=== PATIENT | female | born 1935 | race Caucasian/White ===

== ENCOUNTER 2016-08-20 05:29 | Inpatient (IN) | payer MEDICARE ==
[2016-08-20] MEDS ORDERED: IPRATROPIUM/ALBUTEROL 0.5-2.5 MG/3 ML AMPUL NEB ONE ×3 (05:49→06:40)
[2016-08-20] MEDS ORDERED: METHYLPREDNISOLONE INJ 125 MG/2 ML SDV IV ONE (05:49)
[2016-08-20 06:21] LABS: ABSOLUTE BASOPHILS # (AUTO) 0.1 10^3/uL (0.0-0.2); ABSOLUTE EOSINOPHILS # (AUTO) 0.3 10^3/uL (0.0-0.6); ABSOLUTE LYMPHOCYTES (AUTO) 0.9 10^3/uL (0.5-4.7); ABSOLUTE MONOCYTES (AUTO) 0.8 10^3/uL (0.1-1.4); ABSOLUTE NEUT (AUTO) 9.1 10^3/uL (1.7-8.2); BASOPHILS % (AUTO) 0.6 % (0-2); EOSINOPHILS % (AUTO) 2.3 % (0-6); HEMATOCRIT 38.7 % (36.0-47.0); HEMOGLOBIN 12.8 g/dL (12.0-15.5); HGB HCT DIFFERENCE -0.3; LYMPHOCYTES % (AUTO) 7.7 % (13-45); MEAN CORPUSCULAR HEMOGLOBIN 28.9 pg (27.0-33.4); MEAN CORPUSCULAR HGB CONC 33.2 g/dL (32.0-36.0); MEAN CORPUSCULAR VOLUME 87 fl (80-97); MONOCYTES % (AUTO) 7.2 % (3-13); RED BLOOD COUNT 4.44 10^6/uL (3.72-5.28); RED CELL DISTRIBUTION WIDTH 14.2 % (11.5-14.0); SEGMENTED NEUTROPHILS % (AUTO) 82.2 % (42-78); WHITE BLOOD COUNT 11.1 10^3/uL (4.0-10.5)
[2016-08-20 06:39] LABS: ALANINE AMINOTRANSFERASE 31 U/L (9-52); ALBUMIN 3.5 g/dL (3.5-5.0); ALKALINE PHOSPHATASE 112 U/L (38-126); ANION GAP 9 (5-19); ASPARTATE AMINO TRANSFERASE 30 U/L (14-36); BILIRUBIN,TOTAL 0.5 mg/dL (0.2-1.3); BLOOD UREA NITROGEN 12 mg/dL (7-20); CALCIUM 9.1 mg/dL (8.4-10.2); CARBON DIOXIDE 29 mmol/L (22-30); CHLORIDE 100 mmol/L (98-107); CREATINE KINASE 97 U/L (30-135); CREATININE RESULT 0.79 mg/dL (0.52-1.25); GLUCOSE 126 mg/dL (75-110); POTASSIUM 4.5 mmol/L (3.6-5.0); SODIUM 138.1 mmol/L (137-145); TOTAL PROTEIN 6.7 g/dL (6.3-8.2)
--- NOTE | 2016-08-20 06:40 | ER Document Report ---
ED General - General Chief Complaint: Breathing Difficulty Stated Complaint: DIFFICULTY BREATHING Mode of Arrival: Ambulatory Information source: Patient, Relative Notes: 81-year-old female history of CVA COPD presents with complaints of shortness of breath that started yesterday. Patient took her Ventolin every 4 hours yesterday and this morning was extremely difficult to breathe, and brought her in for evaluation TRAVEL OUTSIDE OF THE [place] IN LAST 30 DAYS: No - HPI Onset: Yesterday Onset/Duration: Persistent Quality of pain: No pain Severity: Mild Pain Level: Denies Associated symptoms: Nonproductive cough, Shortness of breath Exacerbated by: Movement, Walking Relieved by: Denies Similar symptoms previously: Yes Recently seen / treated by doctor: Yes - Related Data Allergies/Adverse Reactions: No Known Allergies Allergy (Verified 05/30/16 10:29) Past Medical History - Social History Smoking Status: Never Smoker Cigarette use (# per day): No Chew tobacco use (# tins/day): No Smoking Education Provided: No Family History: Reviewed & Not Pertinent - Past Medical History Cardiac Medical History: Reports: Hx Atrial Fibrillation, Hx Coronary Artery Disease, Hx Hypertension Neurological Medical History: Reports: Hx Cerebrovascular Accident - right hemiparesis Endocrine Medical History: Reports: Hx Diabetes Mellitus Type 1, Hx Diabetes Mellitus Type 2 GI Medical History: Reports: Hx Gastroesophageal Reflux Disease Psychiatric Medical History: Reports: Hx Depression Past Surgical History: Reports: Hx Breast Surgery - right mastectomy, Hx Kidney (Renal Surgery) - right kidney removed, Hx Mastectomy - Right nephrectomy, Hx Vascular Surgery - Right fem-pop bypass, Left vein harvesting - Immunizations Hx Diphtheria, Pertussis, Tetanus Vaccination: No Review of Systems - Review of Systems Notes: REVIEW OF SYSTEMS: CONSTITUTIONAL : Denies fever, chills, or sweats. Denies recent illness. EENT: Denies eye, ear, throat, or mouth pain or symptoms. Denies nasal or sinus congestion or discharge. Denies throat, tongue, or mouth swelling or difficulty swallowing. CARDIOVASCULAR: Denies chest pain. Denies palpitations or racing or irregular heart beat. Denies ankle edema. RESPIRATORY: Admits to shortness of breath nonproductive cough difficulty breathing GASTROINTESTINAL: Denies abdominal pain or distention. Denies nausea, vomiting , or diarrhea. Denies blood in vomitus, stools, or per rectum. Denies black, tarry stools. Denies constipation. GENITOURINARY: Denies difficulty urinating, painful urination, burning, frequency, blood in urine, or discharge. FEMALE GENITOURINARY: Denies vaginal bleeding, heavy or abnormal periods, irregular periods. Denies vaginal discharge or odor. MUSCULOSKELETAL: Denies back or neck pain or stiffness. Denies joint pain or swelling. SKIN: Denies rash, lesions or sores. HEMATOLOGIC : Denies easy bruising or bleeding. LYMPHATIC: Denies swollen, enlarged glands. NEUROLOGICAL: Denies confusion or altered mental status. Denies passing out or loss of consciousness. Denies dizziness or lightheadedness. Denies headache. Denies weakness or paralysis or loss of use of either side. Denies problems with gait or speech. Denies sensory loss, numbness, or tingling. Denies seizures. PSYCHIATRIC: Denies anxiety or stress. Denies depression, suicidal ideation, or homicidal ideation. ALL OTHER SYSTEMS REVIEWED AND NEGATIVE. Dictation was performed using [employer] voice recognition software PHYSICAL EXAMINATION: GENERAL: Well-appearing, well-nourished and in no acute distress. HEAD: Atraumatic, normocephalic. EYES: Pupils equal round and reactive to light, extraocular movements intact, conjunctiva are normal. ENT: Nares patent, oropharynx clear without exudates. Moist mucous membranes. NECK: Normal range of motion, supple without lymphadenopathy LUNGS: Decreased breath sounds on the left upper and lower lobes. It is noted the patient was seen by physician integration assistant prior to my arrival and 2 DuoNeb nebs were given since the patient was noted to be in significant respiratory distress HEART: Regular rate and rhythm without murmurs ABDOMEN: Soft, nontender, nondistended abdomen. No guarding, no rebound. No masses appreciated. Female : deferred Musculoskeletal: Normal range of motion, no pitting or edema. No cyanosis. NEUROLOGICAL: Cranial nerves grossly intact. Normal speech, normal gait. Normal sensory, motor exams PSYCH: Normal mood, normal affect. SKIN: Warm, Dry, normal turgor, no rashes or lesions noted. Physical Exam - Vital signs Vitals: Temp Pulse Resp BP Pulse Ox 98 F 86 30 H 208/90 H 92 08/20/16 05:33 08/20/16 05:33 08/20/16 05:33 08/20/16 05:33 08/20/16 05:33 Course - Re-evaluation Re-evalutation: 08/20/16 06:42 At this time patient looks extremely well states she is breathing much better, she is on 2 L nasal cannula satting 96%, patient is not on O2 at home. 1 further duo neb has been ordered, lab work imaging are pending patient will be ambulating be evaluated prior to disposition 08/20/16 08:10 pt desat to 87% at rest on ra , movement the patient for further breathing treatments - Vital Signs Vital signs: Temp Pulse Resp BP Pulse Ox 98 F 86 21 H 160/62 H 90 L 08/20/16 05:33 08/20/16 05:33 08/20/16 08:02 08/20/16 08:02 08/20/16 08:00 - Laboratory Result Diagrams: 08/20/16 06:15 08/20/16 06:15 Laboratory results interpreted by me: 08/20/16 08/20/16 08/20/16 06:15 06:15 06:15 WBC 11.1 H RDW 14.2 H Seg Neutrophils % 82.2 H Lymphocytes % 7.7 L Absolute Neutrophils 9.1 H VBG HCO3 Glucose 126 H NT-Pro-B Natriuret Pep 5270 H 08/20/16 06:53 WBC RDW Seg Neutrophils % Lymphocytes % Absolute Neutrophils VBG HCO3 33.4 H Glucose NT-Pro-B Natriuret Pep - Diagnostic Test Radiology reviewed: Image reviewed, Reports reviewed - EKG Interpretation by Me EKG shows normal: Sinus rhythm, [place], Intervals, QRS Complexes Critical Care Note - Critical Care Note Total time excluding time spent on procedures (mins): 31 Comments: 31 minutes of critical care time spent in direct contact evaluating and reevaluating the patient, treating symptoms, reviewing labs and studies and speaking with family and consultants excluding any procedures Discharge - Discharge Clinical Impression: Hypoxemia COPD (chronic obstructive pulmonary disease) Qualifiers: COPD type: unspecified COPD Qualified Code(s): J44.9 - Chronic obstructive pulmonary disease, unspecified Hypertension Qualifiers: Hypertension type: essential hypertension Qualified Code(s): I10 - Essential ( primary) hypertension Condition: Stable Disposition: ADMITTED OBSERVATION Admitting Provider: Hospitalist Unit Admitted: Telemetry
[2016-08-20 06:49] LABS: CREATINE KINASE MB 3.75 ng/mL (<4.55); TROPONIN I 0.021 ng/mL
[2016-08-20 07:08] LABS: VENOUS BLOOD BASE EXCESS 5.9 mmol/L; VENOUS BLOOD HCO3 33.4 mmol/L (20-32); VENOUS BLOOD PCO2 61.4 mmHg (35-63); VENOUS BLOOD PH 7.35 (7.30-7.42)
--- NOTE | 2016-08-20 08:07 | EKG REPORT ---
SEVERITY:- ABNORMAL ECG - SINUS RHYTHM PROBABLE LEFT ATRIAL ABNORMALITY LAD, CONSIDER LEFT ANTERIOR FASCICULAR BLOCK BORDERLINE R WAVE PROGRESSION, ANTERIOR LEADS : Confirmed by: Jameson Engel MD 20-Aug-2016 08:06:42
[2016-08-20] MEDS ORDERED: ONDANSETRON HCL INJ/PF 4 MG/2 ML SDV IV PRN (10:14)
[2016-08-20] MEDS ORDERED: LEVALBUTEROL HCL NEB 1.25 MG/3 ML AMPUL NEB PRN (10:25)
[2016-08-20] MEDS ORDERED: DEXTROSE 40% GEL 15 GM TUBE PO PRN ×2 (10:28)
[2016-08-20] MEDS ORDERED: GLUCAGON,HUMAN RECOMB 1 MG INJ IM PRN (10:28)
[2016-08-20] MEDS ORDERED: DEXTROSE 50%-WATER 25 GM/50 ML DISP.SYRIN IV PRN ×2 (10:28)
--- NOTE | 2016-08-20 10:42 | PDOC H&P ---
History of Present Illness Admission Date/PCP: 08/20/16 08:26 ANU ASTUDILLO Patient complains of: Shortness of breath History of Present Illness: REI ROBLES is a 81 year old female, with history of paroxysmal atrial fibrillation, hypertension, diabetes mellitus, COPD but unknown to the patient and family presents to the hospital because of shortness of breath of 2 days duration. No reported chest pain, paroxysmal nocturnal dyspnea nor orthopnea. No reported weight gain as well. No chills or fever. Intermittently the patient would have some cough with clear phlegm. Patient intermittently will have some sinus congestion mainly on the left side with postnasal dripping. 2 days ago the patient started to develop some shortness of breath and wheezing. Patient started using her nebulizers more frequently without significant help. Today she woke up with a lot of wheezing again. She started to use nebulizers without any help therefore the patient was brought to the hospital where she was given intravenous steroids as well as bronchodilators with partial relief of symptoms. The patient was then referred for admission. O2 saturation reportedly drop with activity but the patient's baseline activity is bed bound and wheelchair bound. Past Medical History Cardiac Medical History: Reports: Atrial Fibrillation, Coronary Artery Disease, Hypertension Pulmonary Medical History: Reports: Chronic Obstructive Pulmonary Disease (COPD ) - On record Endocrine Medical History: Reports: Diabetes Mellitus Type 1, Diabetes Mellitus Type 2 GI Medical History: Reports: Gastroesophageal Reflux Disease Psychiatric Medical History: Reports: Depression Past Surgical History Past Surgical History: Reports: Mastectomy - Right nephrectomy, Vascular Surgery - Right fem-pop bypass, Left vein harvesting Social History Information Source: Relative Smoking Status: Former Smoker Frequency of Alcohol Use: None Hx Recreational Drug Use: No Drugs: None Hx Prescription Drug Abuse: No Family History Family History: CAD, DM Parental Family History Reviewed: Yes Children Family History Reviewed: Yes Sibling(s) Family History Reviewed.: Yes Medication/Allergy Home Medications: Acetaminophen [Tylenol Extra Strength] 500 mg PO BID 08/20/16 Albuterol Sulfate [Ventolin HFA MDI 18 GM] 2 puff IH Q4HP PRN 08/20/16 Aspirin [Aspirin EC] 81 mg PO DAILY 08/20/16 Clopidogrel Bisulfate [Plavix 75 mg Tablet] 75 mg PO DAILY 08/20/16 Cranberry [Cranberry 500 mg Capsule] 1,000 mg PO BID@0800,1600 08/20/16 Digoxin [Lanoxin 0.125 mg Tablet] 0.125 mg PO DAILY 08/20/16 Ezetimibe [Zetia 10 mg Tablet] 10 mg PO DAILY 08/20/16 Fluticasone Propionate [Flonase Nasal Evant 50 Mcg/Evant 16 gm] 2 spray IH DAILY 08/20/16 Gabapentin [Neurontin 300 mg Capsule] 1,200 mg PO Q8 08/20/16 Insulin Aspart [Novolog Insulin (Aspart) 100 unit/mL] 0 units SQ ASDIR PRN 08/20 Insulin Glargine,Hum.rec.anlog [Lantus] 65 unit SQ QAM 08/20/16 Ipratropium/Albuterol Sulfate [Duoneb 3 ml Ampul] 1 vial IH Q6 08/20/16 Isosorbide Mononitrate [Imdur 60 mg Tablet.er] 60 mg PO DAILY 08/20/16 Metoprolol Tartrate [Lopressor 50 mg Tablet] 50 mg PO Q12 08/20/16 Pantoprazole Sodium 40 mg PO DAILY 08/20/16 Paroxetine HCl [Paxil] 40 mg PO DAILY 08/20/16 Polyethylene Glycol 3350 [Miralax Powder 17 gm/Packet] 17 gm PO DAILY 08/20/16 Trazodone HCl [Desyrel 50 mg Tablet] 75 mg PO QHS 08/20/16 Vit A/Vit C/Vit E/Zinc/Copper [Preservision Areds Softgel] 2 cap PO BID Allergies/Adverse Reactions: No Known Allergies Allergy (Verified 05/30/16 10:29) Review of Systems Constitutional: ABSENT: anorexia, chills, fever(s), headache(s), night sweats, weight gain, weight loss Eyes: ABSENT: visual disturbances Ears: ABSENT: hearing changes Nose, Mouth, and Throat: ABSENT: mouth pain, sore throat Cardiovascular: PRESENT: dyspnea on exertion - Chronic, edema. ABSENT: chest pain, orthropnea, palpitations Respiratory: PRESENT: cough - Occasional, dyspnea, sputum - Occasional. ABSENT : hemoptysis Gastrointestinal: PRESENT: abdominal pain - Minimal, associated with constipation, constipation. ABSENT: diarrhea, hematemesis, hematochezia, melena , nausea, vomiting Genitourinary: ABSENT: difficulty urinating, dysuria, hematuria Musculoskeletal: ABSENT: joint swelling Integumentary: ABSENT: pruritus, rash, wounds Neurological: PRESENT: abnormal speech - Expressive aphasia, focal weakness - Chronic right hemiparesis. ABSENT: abnormal gait, confusion, dizziness, syncope Psychiatric: ABSENT: anxiety, depression, homidical ideation, suicidal ideation Endocrine: ABSENT: cold intolerance, heat intolerance, polydipsia, polyuria Hematologic/Lymphatic: ABSENT: easy bleeding, easy bruising Physical Exam Vital Signs: Temp Pulse Resp BP Pulse Ox 98.7 F 86 26 H 132/52 H 96 08/20/16 08:57 08/20/16 05:33 08/20/16 10:01 08/20/16 10:01 08/20/16 10:01 General appearance: PRESENT: mild distress, morbidly obese Head exam: PRESENT: atraumatic, normocephalic Eye exam: PRESENT: conjunctiva pink, EOMI, PERRLA - But sluggish. ABSENT: scleral icterus Ear exam: PRESENT: normal external ear exam. ABSENT: drainage Mouth exam: PRESENT: moist, neck supple, tongue midline Throat exam: ABSENT: post pharyngeal erythema, tonsillar erythema, tonsillar exudate Neck exam: ABSENT: carotid bruit, JVD, lymphadenopathy, thyromegaly Respiratory exam: PRESENT: rales - Lower lung rojas right greater than left. ABSENT: rhonchi, wheezes Cardiovascular exam: PRESENT: RRR, +S1, +S2. ABSENT: diastolic murmur, rubs, systolic murmur Pulses: PRESENT: normal dorsalis pedis pul Vascular exam: PRESENT: normal capillary refill GI/Abdominal exam: PRESENT: normal bowel sounds, soft. ABSENT: distended, guarding, mass, organolmegaly, rebound, tenderness Rectal exam: PRESENT: deferred Extremities exam: PRESENT: full ROM, +1 edema. ABSENT: calf tenderness, clubbing Neurological exam: PRESENT: alert, awake, oriented to situation Psychiatric exam: PRESENT: appropriate affect, normal mood. ABSENT: homicidal ideation, suicidal ideation Focused psych exam: ABSENT: restlessness Skin exam: PRESENT: dry, intact, warm. ABSENT: cyanosis, rash Results Impressions: Chest X-Ray 08/20/16 05:49 IMPRESSION: Linear scarring or subsegmental atelectasis in the right lung base. Remaining lung rojas are free of active infiltrates. Other findings as noted above Assessment & Plan - Diagnosis (1) Congestive heart failure Qualifiers: Congestive heart failure type: unspecified congestive heart failure type Congestive heart failure chronicity: acute Qualified Code(s): I50.9 - Heart failure, unspecified Is this a current diagnosis for this admission?: Yes (2) COPD (chronic obstructive pulmonary disease) Qualifiers: COPD type: unspecified COPD Qualified Code(s): J44.9 - Chronic obstructive pulmonary disease, unspecified Is this a current diagnosis for this admission?: Yes (3) HTN (hypertension) Qualifiers: Hypertension type: essential hypertension Qualified Code(s): I10 - Essential (primary) hypertension Is this a current diagnosis for this admission?: Yes (4) Atrial fibrillation Qualifiers: Atrial fibrillation type: paroxysmal Qualified Code(s): I48.0 - Paroxysmal atrial fibrillation Is this a current diagnosis for this admission?: Yes (5) Cerebral vascular disease Is this a current diagnosis for this admission?: Yes (6) Depression Qualifiers: Depression Type: unspecified Qualified Code(s): F32.9 - Major depressive disorder, single episode, unspecified Is this a current diagnosis for this admission?: Yes (7) Diabetes mellitus type 2, controlled, without complications Qualifiers: Diabetes mellitus penitentiary insulin use: with intermission coordinator use Qualified Code(s): E11.9 - Type 2 diabetes mellitus without complications Is this a current diagnosis for this admission?: Yes (8) GERD (gastroesophageal reflux disease) Qualifiers: Esophagitis presence: without esophagitis Qualified Code(s): K21.9 - Gastro-esophageal reflux disease without esophagitis Is this a current diagnosis for this admission?: Yes - Time Time Spent: 50 to 70 Minutes Anticipated discharge: Home with Homehealth Within: within 72 hours - Inpatient Certification Based on my medical assessment, after consideration of the patient's comorbidities, presenting symptoms, or acuity I expect that the services needed warrant INPATIENT care.: Yes I certify that my determination is in accordance with my understanding of Medicare's requirements for reasonable and necessary INPATIENT services [42 CFR 412.3e].: Yes Medical Necessity: Significant Comorbidiites Make Outpatient Treatment Too Risky , Need Close Monitoring Due to Risk of Patient Decompensation, Risk of Diagnosis Which Will Require Inpatient Eval/Care/Monitoring Post Hospital Care: D/C Field Observer Documentation - Plan Summary Plan Summary: The patient will be admitted to telemetry. We will obtain echocardiogram. We will continue the patient's antiplatelet therapy. We will obtain cardiac enzymes 3. Begin intravenous Lasix. Patient may very well have COPD as well due to prior history of smoking we will put the patient on oral steroids and [id number] bronchodilators. We will obtain TSH and free T4. DVT prophylaxis with Lovenox will be given. Supplemental oxygen will be placed. Further testing depends and the initial evaluation as outlined above. Family and patient reports no history of chronic home oxygen use.
[2016-08-20 12:00] LABS: THYROID STIMULATING HORMONE 5.86 uIU/mL (0.47-4.68)
[2016-08-20] MEDS ORDERED: CLOPIDOGREL BISULFATE 75 MG TABLET PO ONE (12:00)
[2016-08-20] MEDS ORDERED: METOPROLOL TARTRATE 50 MG TABLET PO ONE (12:00)
[2016-08-20] MEDS ORDERED: POLYETHYLENE GLYCOL 3350 POWDER 17 GM/1 PACKET PO ONE (12:00)
[2016-08-20] MEDS ORDERED: FUROSEMIDE INJ/PF 40 MG/4 ML SDV IV ONE (12:00)
[2016-08-20] MEDS ORDERED: PREDNISONE 20 MG TABLET PO ONE (12:00)
[2016-08-20] MEDS ORDERED: DIGOXIN 0.125 MG TABLET PO ONE (12:00)
[2016-08-20] MEDS ORDERED: DOCUSATE SODIUM 100 MG CAPSULE PO ONE (12:00)
[2016-08-20] MEDS ORDERED: ISOSORBIDE MONONITRATE 60 MG TAB.ER.24H PO ONE (12:00)
[2016-08-20] MEDS ORDERED: ASPIRIN 81 MG TABLET, ENT COATED PO ONE (12:00)
[2016-08-20] MEDS ORDERED: EZETIMIBE 10 MG TABLET PO ONE (12:00)
[2016-08-20] MEDS ORDERED: INSULIN GLARGINE,HUM.REC.ANLOG 300 UNIT/3 ML INSULN.PEN SUBCUT ONE (12:00)
--- NOTE | 2016-08-20 12:43 | XCELERA REPORT ---
[address] [address] Transthoracic Echocardiogram Report Name: REI ROBLES Age: 81 yrs Gender: Female : 1935 Patient Status: Inpatient Patient Location: \S\19\S\A Study Date: 08/20/2016 10:51 AM Height: 65 in Weight: 178 lb BSA: 1.9 m2 Procedure: A two-dimensional transthoracic echocardiogram with color flow and Doppler was performed. The study was technically difficult with many images being suboptimal in quality. Reason For Study: DYSPNEA / SOB / CHF History: DYSPNEA / SOB / CHF. Ordering Physician: NATHALIA LAKE Performed By: Hoda Young Interpretation Summary The left ventricle is normal in size. There is mild concentric left ventricular hypertrophy. LV EF is > than 55% Doppler measurements suggest normal left ventricular diastolic function The left ventricular wall motion is normal. The right atrium is normal. The left atrium is borderline dilated. There is no evidence of mitral valve prolapse. There is no mitral valve stenosis. There is a trace to mild amount of mitral regurgitation There is no aortic valvular vegetation. There is mild aortic stenosis There is a peak gradient of 25 mm of Hg. There is no tricuspid stenosis. There is a trace amount of tricuspid regurgitation Unable to calculate RVSP due to insufficient TR jet. MMode/2D Measurements \T\ Calculations RVDd: 2.8 cm LVIDd: 4.2 cm FS: 30.1 % Ao root diam: 3.3 cm IVSd: 1.2 cm LVIDs: 3.0 cm EDV(Teich): 79.7 ml LVPWd: 1.2 cm ESV(Teich): 33.6 ml Ao root area: 8.3 cm2 EF(Teich): 57.8 % LA dimension: 4.1 cm LVOT diam: 2.0 cm LVOT area: 3.2 cm2 Doppler Measurements \T\ Calculations MV E max levy: MV V2 max: MV P1/2t max levy: Ao V2 max: 154.1 cm/sec 166.8 cm/sec 152.4 cm/sec 249.0 cm/sec MV A max levy: MV max PG: MV P1/2t: 64.6 msec Ao max P.1 cm/sec 11.1 mmHg MVA(P1/2t): 3.4 cm2 24.8 mmHg MV E/A: 1.1 MV V2 mean: MV dec slope: Ao V2 mean: 109.2 cm/sec 690.8 cm/sec2 165.0 cm/sec MV mean PG: MV dec time: 0.22 secAo mean P.5 mmHg 13.0 mmHg MV V2 VTI: Ao V2 VTI: 53.1 cm 52.7 cm MVA(VTI): 1.4 cm2 KENTRELL(I,D): 1.5 cm2 KENTRELL(V,D): 1.5 cm2 LV V1 max PG: SV(LVOT): 76.9 mlPA V2 max: 5.3 mmHg 99.7 cm/sec LV V1 mean PG: PA max P.0 mmHg 2.9 mmHg LV V1 max: 115.5 cm/sec LV V1 mean: 77.9 cm/sec LV V1 VTI: 24.1 cm Left Ventricle The left ventricle is normal in size. There is mild concentric left ventricular hypertrophy. Left ventricular systolic function is normal. LV EF is > than 55%. Doppler measurements suggest normal left ventricular diastolic function. The left ventricular wall motion is normal. There is no thrombus. There is no ventricular septal defect visualized. Right Ventricle The right ventricle is normal in size and function. Atria The right atrium is normal. The left atrium is borderline dilated. The interatrial septum is intact with no evidence for an atrial septal defect. Mitral Valve There is no evidence of mitral valve prolapse. There is no vegetation seen on the mitral valve. There is no mitral valve stenosis. There is a trace to mild amount of mitral regurgitation. Aortic Valve There is no aortic valvular vegetation. There is mild aortic stenosis. There is a peak gradient of 25 mm of Hg. There is no LVOT obstruction. No aortic regurgitation is present. Tricuspid Valve There is no tricuspid stenosis. There is a trace amount of tricuspid regurgitation. Unable to calculate RVSP due to insufficient TR jet. Pulmonic Valve There is no pulmonic valvular stenosis. There is no pulmonic valvular regurgitation. Great Vessels The aortic root is normal size. Effusions There is no pericardial effusion. : NATHALIA LAKE > Rocio Duckworth
[2016-08-20] MEDS: LEVALBUTEROL HCL NEB 1.25 MG/3 ML AMPUL NEB SCH ×3 (12:45→20:39)
[2016-08-20] MEDS: IPRATROPIUM BROMIDE 0.02% NEB 0.5 MG/2.5 ML AMPUL NEB SCH ×2 (13:06→20:39)
[2016-08-20] MEDS: GABAPENTIN 400 MG CAPSULE PO SCH ×2 (14:56→22:23)
[2016-08-20] MEDS: ACETAMINOPHEN 325 MG TABLET PO PRN (17:52)
[2016-08-20] MEDS: TRAZODONE HCL 50 MG TABLET PO SCH (22:24)
[2016-08-20] MEDS: FUROSEMIDE INJ/PF 40 MG/4 ML SDV IV SCH (22:24)
[2016-08-20] MEDS: METOPROLOL TARTRATE 50 MG TABLET PO SCH (22:24)
[2016-08-20 22:44] LABS: ADD ON TESTING BLD IN LAB ACKNOWLEDGE
[2016-08-20 23:04] LABS: DIGOXIN 1.54 ng/mL (0.8-2.0)
[2016-08-20] MEDS: INSULIN REG, HUMAN 100 UNIT/ML 3 ML VIAL (PYX) SUBCUT PRN (23:14)
[2016-08-21] MEDS: IPRATROPIUM BROMIDE 0.02% NEB 0.5 MG/2.5 ML AMPUL NEB SCH ×7 (00:28→23:55)
[2016-08-21] MEDS: LEVALBUTEROL HCL NEB 1.25 MG/3 ML AMPUL NEB SCH ×7 (00:28→23:55)
[2016-08-21 03:25] LABS: ANION GAP 9 (5-19); BLOOD UREA NITROGEN 31 mg/dL (7-20); CALCIUM 8.8 mg/dL (8.4-10.2); CARBON DIOXIDE 29 mmol/L (22-30); CHLORIDE 94 mmol/L (98-107); CREATINE KINASE 102 U/L (30-135); CREATININE RESULT 1.05 mg/dL (0.52-1.25); GLUCOSE 287 mg/dL (75-110); POTASSIUM 4.9 mmol/L (3.6-5.0); SODIUM 131.5 mmol/L (137-145)
[2016-08-21] MEDS: GABAPENTIN 400 MG CAPSULE PO SCH ×3 (06:25→21:44)
[2016-08-21] MEDS: LANSOPRAZOLE 30 MG TAB.RAP.DR PO SCH (06:25)
--- NOTE | 2016-08-21 06:35 | EKG REPORT ---
SEVERITY:- BORDERLINE ECG - SINUS RHYTHM BORDERLINE LEFT AXIS DEVIATION BORDERLINE T ABNORMALITIES, DIFFUSE LEADS : Confirmed by: Jameson Engel MD 21-Aug-2016 06:35:07
[2016-08-21] MEDS: ENOXAPARIN SODIUM INJ 40 MG/0.4 ML DISP.SYRIN SUBCUT SCH (07:50)
[2016-08-21] MEDS: INSULIN REG, HUMAN 100 UNIT/ML 3 ML VIAL (PYX) SUBCUT PRN ×4 (07:53→21:44)
[2016-08-21] MEDS: INSULIN GLARGINE,HUM.REC.ANLOG 300 UNIT/3 ML INSULN.PEN SUBCUT SCH (07:53)
[2016-08-21] MEDS: METOPROLOL TARTRATE 50 MG TABLET PO SCH ×2 (09:39→21:44)
[2016-08-21] MEDS: DOCUSATE SODIUM 100 MG CAPSULE PO SCH (09:39)
[2016-08-21] MEDS: PAROXETINE HCL 20 MG TABLET PO SCH (09:39)
[2016-08-21] MEDS: ISOSORBIDE MONONITRATE 60 MG TAB.ER.24H PO SCH (09:39)
[2016-08-21] MEDS: CLOPIDOGREL BISULFATE 75 MG TABLET PO SCH (09:39)
[2016-08-21] MEDS: EZETIMIBE 10 MG TABLET PO SCH (09:40)
[2016-08-21] MEDS: ASPIRIN 81 MG TABLET, ENT COATED PO SCH (09:40)
[2016-08-21] MEDS: FUROSEMIDE INJ/PF 40 MG/4 ML SDV IV SCH (09:40)
[2016-08-21] MEDS: POLYETHYLENE GLYCOL 3350 POWDER 17 GM/1 PACKET PO SCH (09:40)
[2016-08-21] MEDS: PREDNISONE 20 MG TABLET PO SCH (09:40)
[2016-08-21] MEDS: DIGOXIN 0.125 MG TABLET PO SCH (09:46)
--- NOTE | 2016-08-21 11:02 | PDOC PROGRESS REPORT ---
Subjective Progress Note for:: 08/21/16 Subjective:: Patient is breathing better although she still complains of some rhonchi and coughing. No nausea or vomiting. No reported chest pain. No temperature spikes of respiratory distress reported. No diarrhea as well. Physical Exam Vital Signs: Temp Pulse Resp BP Pulse Ox 97.6 F 62 17 148/57 H 100 08/21/16 08:05 08/21/16 08:14 08/21/16 08:14 08/21/16 08:05 08/21/16 08:14 Pulse Oximeter Continuous Start: 08/20/16 10: 15 Freq: RTQ4 Status: Active Document 08/21/16 08:14 [facility] (Rec: 08/21/16 08:16 [facility] [email or web address]) Pulse Oximetry Assessment Oxygen Saturation (92-100) 100 Oxygen Flow Rate (L/min) 2 Oxygen Delivery Method Nasal Cannula Equipment Usage Equipment in Use Continuous SpO2 Machine # [id number] Intake & Output 08/20/16 08/21/16 08/22/16 06:59 06:59 06:59 Intake Total 806 Balance 806 Weight 81.6 kg General appearance: PRESENT: no acute distress, obese Head exam: PRESENT: normocephalic Eye exam: PRESENT: EOMI Mouth exam: PRESENT: moist, neck supple Neck exam: ABSENT: JVD Respiratory exam: PRESENT: clear to auscultation ashanti - Anteriorly, rhonchi - few on the lower lung rojas posteriorly Cardiovascular exam: PRESENT: RRR. ABSENT: gallop GI/Abdominal exam: PRESENT: normal bowel sounds, soft. ABSENT: distended, tenderness Extremities exam: PRESENT: +1 edema - Improved Neurological exam: PRESENT: alert, awake Skin exam: PRESENT: dry, warm. ABSENT: cyanosis Results Laboratory Results: 08/21/16 02:57 08/21/16 02:57 Sodium 131.5 L Potassium 4.9 Chloride 94 L Carbon Dioxide 29 Anion Gap 9 BUN 31 H Creatinine 1.05 Est GFR ( Amer) > 60 Est GFR (Non-Af Amer) 50 L Glucose 287 H Calcium 8.8 08/20/16 08/20/16 08/20/16 12:28 12:28 20:00 Creatine Kinase 75 76 Troponin I 0.019 08/20/16 08/21/16 08/21/16 20:00 02:57 02:57 Creatine Kinase 102 Troponin I 0.017 0.451 08/21/16 06:06 Creatine Kinase Troponin I 0.977 Impressions: Chest X-Ray 08/20/16 05:49 IMPRESSION: Linear scarring or subsegmental atelectasis in the right lung base. Remaining lung rojas are free of active infiltrates. Other findings as noted above Assessment & Plan - Diagnosis (1) Congestive heart failure Qualifiers: Congestive heart failure type: unspecified congestive heart failure type Congestive heart failure chronicity: acute Qualified Code(s): I50.9 - Heart failure, unspecified Is this a current diagnosis for this admission?: Yes (2) COPD (chronic obstructive pulmonary disease) Qualifiers: COPD type: unspecified COPD Qualified Code(s): J44.9 - Chronic obstructive pulmonary disease, unspecified Is this a current diagnosis for this admission?: Yes (3) HTN (hypertension) Qualifiers: Hypertension type: essential hypertension Qualified Code(s): I10 - Essential (primary) hypertension Is this a current diagnosis for this admission?: Yes (4) Atrial fibrillation Qualifiers: Atrial fibrillation type: paroxysmal Qualified Code(s): I48.0 - Paroxysmal atrial fibrillation Is this a current diagnosis for this admission?: Yes (5) Cerebral vascular disease Is this a current diagnosis for this admission?: Yes (6) Depression Qualifiers: Depression Type: unspecified Qualified Code(s): F32.9 - Major depressive disorder, single episode, unspecified Is this a current diagnosis for this admission?: Yes (7) Diabetes mellitus type 2, controlled, without complications Qualifiers: 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 We will consult cardiology for the elevated troponin. In the meantime continue antiplatelet therapy for now. Patient isn't on beta jaxon. We will decrease the Lasix. Continue steroids and bronchodilators.
[2016-08-21] MEDS ORDERED: LEVOFLOXACIN 750 MG TABLET PO ONE (12:00)
[2016-08-21] MEDS: ACETAMINOPHEN 325 MG TABLET PO PRN (16:23)
[2016-08-21] MEDS: TRAZODONE HCL 50 MG TABLET PO SCH (21:44)
[2016-08-22] MEDS: IPRATROPIUM BROMIDE 0.02% NEB 0.5 MG/2.5 ML AMPUL NEB SCH ×5 (03:57→20:01)
[2016-08-22] MEDS: LEVALBUTEROL HCL NEB 1.25 MG/3 ML AMPUL NEB SCH ×5 (03:57→19:57)
--- NOTE | 2016-08-22 04:58 | CONSULTATION REPORT E ---
Consultation Report NAME: REI ROBLES : 1935 AGE: 81Y DATE: 08/21/2016 407 A TO: ABELARDO RAMIREZ M.D. FROM: BRIAN NGUYEN Requesting Physician REASON FOR CONSULTATION: Elevated troponin and shortness of breath. HISTORY: Note that the patient has history of prior stroke and expressive aphasia and hence, it is very difficult to make out what the patient is saying and also, the patient seems to be having some underlying dementia and she is confused. Hence, history and past history obtained from past medical history and History and Physical. There is no family here. Note, the patient is a FULL CODE. Her is her surrogate healthcare decision maker. The patient is an 81-year-old female with history of paroxysmal atrial fibrillation, hypertension, diabetes mellitus and COPD, and possibly history of coronary artery disease, who has been admitted with shortness of breath for the past 2 days. As per the records, she has been having intermittent cough with white phlegm production. There are no chills, rigors or fever. The patient did use a nebulizer without any success and hence, came to the emergency room. Her O2 saturations were 92% when she is at rest, but with activity it is said the saturation goes down. Also, the patient's second EKG showed some T wave changes diffusely and also, the patient's troponin is elevated. The patient denies any chest pain or discomfort, but it is very difficult to understand if she really understands my questions. PAST MEDICAL HISTORY: 1. Past history of atrial fibrillation. 2. Coronary artery disease. 3. Hypertension. 4. She has history of COPD. 5. She has history of diabetes mellitus type 2, insulin-dependent. 6. She also has history of GERD and depression. PAST SURGICAL HISTORY: 1. Mastectomy on the right side for breast cancer. 2. She also had a right nephrectomy for renal cancer. 3. She has had vascular surgery with a right fem-pop bypass with left vein harvesting. 4. She has also had a left distal tibia-fibula fracture that was repaired. 5. She also has history of hysterectomy. SOCIAL HISTORY: The patient is a former smoker. There is no history of ETOH abuse. FAMILY HISTORY: Positive for coronary artery disease and diabetes mellitus. ALLERGIES: She has no known allergies. MEDICATIONS: 1. Acetaminophen 650 mg p.o. q.4 hours. 2. Aspirin 81 mg p.o. daily. 3. Plavix 75 mg p.o. daily. 4. Hyperglycemic precautions with glutose 40% gel, 15 grams and 30 grams p.o. p.r.n. hyperglycemia. 5. She is on dextrose 25 mg and 12.5 mg IV p.r.n. hyperglycemia. 6. She is on Digoxin 0.125 mg p.o. daily. 7. She is on Colace 100 mg daily. 8. She is on Lovenox 40 mg subcutaneously q.a.m. 9. She is on Zetia 10 mg p.o. daily. 10. She is on Lasix 40 mg IV daily. 11. She is on Neurontin 1200 mg p.o. q.8 hours. 12. She is on Glucagon 1 mg IM p.r.n. hyperglycemia. 13. She is on Lantus insulin 40 units subcutaneously q.a.m. 14. She is on Accu-Chek q.a.c. and at bedtime with sliding scale insulin coverage. 15. She is on isosorbide mononitrate 60 mg p.o. daily. 16. She is on ipratropium bromide (Atrovent) 0.5 mg nebulizer treatment q.4 hours. 17. She is on Prevacid 30 mg p.o. q.6 a.m. 18. She is on Xopenex 1.25 mg nebulizer treatment q.2 hours p.r.n. 19. She is on Xopenex 1.25 mg nebulizer treatment q.4 hours. 20. She is on Levaquin 750 mg p.o. daily. 21. She is on metoprolol titrate 50 mg q.12 hours. 22. She is on Zofran 4 mg IV q.6 hours p.r.n. 23. She is on Paxil 40 mg p.o. daily. 24. She is on polyethylene glycol 17 grams p.o. daily. 25. She is on prednisone 60 mg p.o. daily. 26. She is on trazodone 75 mg p.o. at bedtime. REVIEW OF SYSTEMS: Not obtainable, but as per the chart, there is no history fevers, chills, or rigors. No chest pain. No palpitations. She does have dyspnea on exertion and does have some edema chronically. She does have COPD with sputum, but it is not known of the patient has wheezing or whether she has hemoptysis. PHYSICAL EXAMINATION: GENERAL: The patient has expressive aphasia and she is very confused. VITAL SIGNS: She is afebrile with temperature of 97.6 degrees Fahrenheit, pulse 65 beats per minute, blood pressure 148/57, respirations 16 per minute. O2 saturations 99% on 2 liters per minute nasal cannula. HEENT: Head is atraumatic and normocephalic. Eyes: Pupils are equal, round, regular, reactive to light and accommodation. ENT is negative. NECK: Supple. There is no JVD. Carotids are equal. There is no bruit. Trachea is central. LUNGS: Show a few dry crackles, right greater than left. There is also some fine rales of CHF. HEART: S1 and S2 are heard. There is no S3 gallop. There is no S4 gallop. There is a systolic murmur in the left sternal border and the apex. There is no rub. ABDOMEN: Soft, nontender. There is no hepatosplenomegaly. Bowel sounds are well heard. EXTREMITIES: Femorals are diminished. Leg pulses are diminished. There is no pedal edema. There is no DVT or cellulitis. There is no calf tenderness. CENTRAL NERVOUS SYSTEM: The patient has mild right-sided hemiparesis with expressive aphasia. PSYCHIATRIC: The patient does not appear to be agitated or depressed. In detail psychiatric exam could not be made. DIAGNOSTIC TEST RESULTS: The patient's EKG done on 08/20/2016 on admission shows sinus rhythm, no T-wave abnormality, left anterior fascicular block, borderline RV progression anterior leads. The second EKG done today showed sinus rhythm, borderline left axis deviation. There are borderline T-wave abnormalities in diffuse leads, which is slightly new. There is ST flattening in the inferolateral leads. VQ scan is negative for pulmonary emboli. Chest x-ray shows normal heart size with no evidence of failure. The patient had an echocardiogram done on 08/20/2016. The left ventricle is normal size. There is mild concentric left ventricular hypertrophy. LV ejection fraction is greater than 55%. Doppler measurements suggest normal left ventricular diastolic function. The left ventricular wall motion is normal. The right atrium is normal. The left atrium is borderline dilated. There is no mitral valve stenosis. There is no mitral valve prolapse. There is trace to mild amount of mitral regurgitation. There is mild aortic stenosis with peak gradient of 25 mmHg. There is trace tricuspid regurgitation. Unable to calculate right ventricular systolic pressure due to interruption of TR jet. There is no pericardial effusion. There is no aortic regurgitation. The patient's white count is 11,100, hemoglobin 12.8, hematocrit 38.7, platelet count 191,000. The patient's initial troponin-I was 0.019 and 0.017 and subsequently went up to 0.451 and then 0.977. The patient's hemoglobin A1c is 7.6. Sodium 131, potassium 4.9, CO2 29, BUN 31, creatinine 1.05, GFR reduced to 50 mL. Note, on admission the patient's GFR was greater than 60. At present, the GFR is 50 mL. The NT-proBNP is 5270. The patient's TSH was slightly elevated at 5.86. T4 is normal at 1.12. IMPRESSION: 1. TROPONIN-I LEAK WITH SOME SUBTLE ELECTROCARDIOGRAM CHANGES IN A PATIENT WITH A HISTORY OF CORONARY ARTERY DISEASE. Need to assume that this is a [id number] myocardial infarction since the patient cannot give a good history. 2. DOUBT CONGESTIVE HEART FAILURE WITH A NORMAL EJECTION FRACTION AND CHEST X-RAY SHOWING NO HEART FAILURE. 3. POSSIBLE PNEUMONIA, BIBASILAR. 4. CHRONIC OBSTRUCTIVE PULMONARY DISEASE. 5. HYPERTENSION. 6. DIABETES MELLITUS TYPE 2, INSULIN-DEPENDENT. 7. ACUTE RENAL INSUFFICIENCY. 8. PAST HISTORY OF CEREBROVASCULAR ACCIDENT WITH RIGHT HEMIPARESIS AND EXPRESSIVE APHASIA. 9. DEPRESSION. 10. POSSIBLE UNDERLYING DEMENTIA. 11. HISTORY OF PAROXYSMAL ATRIAL FIBRILLATION. RECOMMENDATIONS: 1. At present, the patient seems to be stable. Would recommend to continue the patient on her isosorbide and beta jaxon, increase as tolerated. 2. Would recommend to hold the Lasix for now. 3. Continue insulin. 4. Continue breathing treatments. 5. Continue Levaquin. 6. Continue beta jaxon and isosorbide. 7. Continue aspirin and Plavix. We will follow with you. Note, 35 minutes spent on the patient with more than 50% of the time spent on direct patient care. It is very difficult to get a history from the patient. Her old records were also reviewed and also discussed with Dr. Gipson, the hospitalist covering the patient. We will try to talk to the when he is here. Increase nitrates and beta blockers as tolerated. DICTATING PHYSICIAN: ABELARDO RAMIREZ M.D. [id number] PHY#: [id number] ID: [id number] JOB#: [id number] ACCT: [id number] cc:ABELARDO RAMIREZ M.D. >
[2016-08-22] MEDS: GABAPENTIN 400 MG CAPSULE PO SCH ×3 (06:07→22:58)
[2016-08-22] MEDS: LANSOPRAZOLE 30 MG TAB.RAP.DR PO SCH (06:07)
[2016-08-22 07:20] LABS: ABSOLUTE LYMPHOCYTES (AUTO) 1.2 10^3/uL (0.5-4.7); ABSOLUTE MONOCYTES (AUTO) 1.1 10^3/uL (0.1-1.4); ABSOLUTE NEUT (AUTO) 10.8 10^3/uL (1.7-8.2); BASOPHILS % (AUTO) 0.2 % (0-2); EOSINOPHILS % (AUTO) 0.1 % (0-6); HEMATOCRIT 34.3 % (36.0-47.0); HEMOGLOBIN 11.2 g/dL (12.0-15.5); HGB HCT DIFFERENCE -0.7; LYMPHOCYTES % (AUTO) 9.4 % (13-45); MEAN CORPUSCULAR HEMOGLOBIN 28.6 pg (27.0-33.4); MEAN CORPUSCULAR HGB CONC 32.7 g/dL (32.0-36.0); MEAN CORPUSCULAR VOLUME 87 fl (80-97); MONOCYTES % (AUTO) 8.5 % (3-13); RED BLOOD COUNT 3.93 10^6/uL (3.72-5.28); SEGMENTED NEUTROPHILS % (AUTO) 81.8 % (42-78); WHITE BLOOD COUNT 13.2 10^3/uL (4.0-10.5)
[2016-08-22] MEDS: INSULIN GLARGINE,HUM.REC.ANLOG 300 UNIT/3 ML INSULN.PEN SUBCUT SCH (08:05)
[2016-08-22] MEDS: ENOXAPARIN SODIUM INJ 40 MG/0.4 ML DISP.SYRIN SUBCUT SCH (08:06)
[2016-08-22] MEDS: PAROXETINE HCL 20 MG TABLET PO SCH (09:57)
[2016-08-22] MEDS: ASPIRIN 81 MG TABLET, ENT COATED PO SCH (09:57)
[2016-08-22] MEDS: DOCUSATE SODIUM 100 MG CAPSULE PO SCH (09:57)
[2016-08-22] MEDS: LEVOFLOXACIN 750 MG TABLET PO SCH (09:57)
[2016-08-22] MEDS: ISOSORBIDE MONONITRATE 60 MG TAB.ER.24H PO SCH (09:57)
[2016-08-22] MEDS: PREDNISONE 20 MG TABLET PO SCH (09:57)
[2016-08-22] MEDS: DIGOXIN 0.125 MG TABLET PO SCH (09:58)
[2016-08-22] MEDS: CLOPIDOGREL BISULFATE 75 MG TABLET PO SCH (09:58)
[2016-08-22] MEDS: EZETIMIBE 10 MG TABLET PO SCH (09:58)
[2016-08-22] MEDS: FUROSEMIDE INJ/PF 40 MG/4 ML SDV IV SCH (09:59)
[2016-08-22] MEDS: POLYETHYLENE GLYCOL 3350 POWDER 17 GM/1 PACKET PO SCH (09:59)
[2016-08-22] MEDS: METOPROLOL TARTRATE 50 MG TABLET PO SCH ×2 (09:59→22:58)
--- NOTE | 2016-08-22 10:17 | PDOC PROGRESS REPORT ---
Subjective Progress Note for:: 08/22/16 Subjective:: Patient is breathing better today . No nausea or vomiting. No reported chest pain. No temperature spikes of respiratory distress reported. No diarrhea as well. Patient wanting to go home. Denies abdominal pain. Physical Exam Vital Signs: Temp Pulse Resp BP Pulse Ox 98.1 F 77 16 177/70 H 97 08/22/16 07:16 08/22/16 08:17 08/22/16 08:17 08/22/16 07:16 08/22/16 08:17 Pulse Oximeter Continuous Start: 08/20/16 10: 15 Freq: RTQ4 Status: Active Document 08/22/16 08:17 [facility] (Rec: 08/22/16 08:19 [facility] [email or web address]_) Pulse Oximetry Assessment Oxygen Saturation (92-100) 97 Oxygen Flow Rate (L/min) 1 Oxygen Delivery Method Nasal Cannula Equipment Usage Equipment in Use Continuous SpO2 Machine # 1 Intake & Output 08/21/16 08/22/16 08/23/16 06:59 06:59 06:59 Intake Total 806 470 Output Total 250 Balance 806 220 Weight 81.6 kg 82.4 kg General appearance: PRESENT: no acute distress, cooperative Head exam: PRESENT: normocephalic Eye exam: PRESENT: EOMI Mouth exam: PRESENT: moist, neck supple Neck exam: ABSENT: JVD Respiratory exam: PRESENT: rales - dry, bilateral, unlabored. ABSENT: rhonchi, wheezes Cardiovascular exam: PRESENT: irregular rhythm. ABSENT: gallop GI/Abdominal exam: PRESENT: hypoactive bowel sounds, soft. ABSENT: distended, tenderness Extremities exam: PRESENT: +1 edema Neurological exam: PRESENT: alert, awake Skin exam: PRESENT: dry, warm. ABSENT: cyanosis Results Laboratory Results: 08/22/16 06:55 08/21/16 02:57 08/22/16 06:55 WBC 13.2 H RBC 3.93 Hgb 11.2 L Hct 34.3 L MCV 87 MCH 28.6 MCHC 32.7 RDW 14.0 Plt Count 165 Seg Neutrophils % 81.8 H Lymphocytes % 9.4 L Monocytes % 8.5 Eosinophils % 0.1 Basophils % 0.2 Absolute Neutrophils 10.8 H Absolute Lymphocytes 1.2 Absolute Monocytes 1.1 Absolute Eosinophils 0.0 Absolute Basophils 0.0 08/20/16 08/20/16 08/20/16 12:28 12:28 20:00 Creatine Kinase 75 76 Troponin I 0.019 08/20/16 08/21/16 08/21/16 20:00 02:57 02:57 Creatine Kinase 102 Troponin I 0.017 0.451 08/21/16 08/22/16 06:06 06:55 Creatine Kinase Troponin I 0.977 0.505 Impressions: Chest X-Ray 08/21/16 00:00 IMPRESSION: NO ACUTE CARDIOPULMONARY PROCESS. NO SIGNIFICANT CHANGE FROM PRIOR STUDY. Lung Scan-VQ NM 08/21/16 00:00 IMPRESSION: LOW PROBABILITY FOR PULMONARY EMBOLUS. Assessment & Plan - Diagnosis (1) Congestive heart failure Qualifiers: Congestive heart failure type: unspecified congestive heart failure type Congestive heart failure chronicity: acute Qualified Code(s): I50.9 - Heart failure, unspecified Is this a current diagnosis for this admission?: Yes (2) NSTEMI (non-ST elevated myocardial infarction) Is this a current diagnosis for this admission?: Yes (3) COPD (chronic obstructive pulmonary disease) Qualifiers: COPD type: unspecified COPD Qualified Code(s): J44.9 - Chronic obstructive pulmonary disease, unspecified Is this a current diagnosis for this admission?: Yes (4) HTN (hypertension) Qualifiers: Hypertension type: essential hypertension Qualified Code(s): I10 - Essential (primary) hypertension Is this a current diagnosis for this admission?: Yes (5) Atrial fibrillation Qualifiers: Atrial fibrillation type: paroxysmal Qualified Code(s): I48.0 - Paroxysmal atrial fibrillation Is this a current diagnosis for this admission?: Yes (6) Cerebral vascular disease Is this a current diagnosis for this admission?: Yes (7) Depression Qualifiers: Depression Type: unspecified Qualified Code(s): F32.9 - Major depressive disorder, single episode, unspecified Is this a current diagnosis for this admission?: Yes (8) Diabetes mellitus type 2, controlled, without complications Qualifiers: Diabetes mellitus form presser insulin use: with jail use Qualified Code(s): E11.9 - Type 2 diabetes mellitus without complications Is this a current diagnosis for this admission?: Yes (9) GERD (gastroesophageal reflux disease) Qualifiers: Esophagitis presence: without esophagitis Qualified Code(s): K21.9 - Gastro-esophageal reflux disease without esophagitis Is this a current diagnosis for this admission?: Yes - Time Time Spent with patient: 25-34 minutes - Plan Summary Plan Summary: Obtain chest CT scan without contrast. Maximize beta jaxon. Continue aspirin and Plavix. Continue diuretics. Wean steroids. Discussed with cardiology service.
--- NOTE | 2016-08-22 15:02 | EKG REPORT ---
SEVERITY:- ABNORMAL ECG - SINUS RHYTHM LAD, CONSIDER LEFT ANTERIOR FASCICULAR BLOCK BORDERLINE ST ELEVATION, ANTEROLATERAL LEADS : Confirmed by: Jameson Engel MD 22-Aug-2016 15:01:57
--- NOTE | 2016-08-22 15:28 | PROGRESS NOTE E ---
Progress Note NAME: REI ROBLES : 1935 AGE: 81Y DATE: 08/22/2016 ROOM: 407 SUBJECTIVE: The patient still has expressive aphasia, but seems to think that she is slightly better. She denies shortness of breath or chest pain. There is no arrhythmia seen on the monitor. There is no recurrence of TIA or CVA symptoms OBJECTIVE: GENERAL: On examination, the patient is mildly obese, in no acute distress. She has expressive aphasia and it is difficult to understand what the patient is saying. VITAL SIGNS: She is afebrile with temperature of 97.7 degrees Fahrenheit. Pulse is 66 beats per minute. Blood pressure is 140/52. Respirations are 17 per minute. O2 sats are 93% on 2L nasal cannula. HEENT: Head is atraumatic and normocephalic. Eyes: Pupils are equal, round, regular and reactive to light and accommodation. External ocular movements are normal. There is no conjunctival pallor. There is no scleral icterus. ENT is negative. NECK: Supple. There is no JVD. Carotids are equal. There are no bruits. There is no goiter. Trachea is central. LUNGS: Diminished air entry, prolonged expiration. On auscultation with a few dry crackles in both bases. No rales of CHF. He has hyperresonance on percussion. There is no rhonchi or wheezing on auscultation. CARDIOVASCULAR: S1 and S2 are heard. There is no S3 gallop. There is no S4 gallop. There is a systolic murmur in the left sternal border in the apex. There is no rub. ABDOMEN: Soft, nontender. There is no hepatosplenomegaly. Bowel sounds are well heard. There are no tender areas or masses. EXTREMITIES: Femorals are diminished. There is no femoral bruits. Leg pulses are diminished. There is no pedal edema. There is no DVT or cellulitis. There is no cyanosis or clubbing. There is no calf tenderness. 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 PSYCHIATRIC: The patient does not appear to be agitated or depressed. LABORATORY: The patient's white count is 13,200, hemoglobin is 11.2, hematocrit is 34.3, platelet count is 165,000. The patient's glucose is 177. Troponin I has come down 0.505. The patient's EKG shows sinus rhythm, left anterior fascicular block. The patient's chest CT shows there is mild, pleural, parenchymal scarring at the right on base. There is trace, bilateral, pleural effusion. There is scattered solid and subsolid nodular opacities measuring up to 6 mm, which may be infectious, inflammatory or neoplastic. The largest is in the right lung as seen in the views, images 24 and 37. There is no large consolidation. There is no pneumothorax. There is no evidence of congestive heart failure. There is no pericardial effusions. There is no *------*. IMPRESSION: 1. TROPONIN I LEAK WITH SOME SUBTLE EKG CHANGES IN A PATIENT WITH HISTORY OF CORONARY ARTERY DISEASE. Need to assume that this is a non-ST segment elevation [place] since the patient cannot give a good history due to expressive aphasia. The troponin I is trending down and the EKG looks stable. 2. DOUBT CONGESTIVE HEART FAILURE WITH A NORMAL EJECTION FRACTION. Chest x-ray shows no heart failure. 3. POSSIBLE INFECTIOUS PROCESS IN BOTH THE LUNGS, RIGHT GREATER THAN LEFT, WHICH APPEAR SOLID AND SEMI-SOLID NODULES IN BOTH LUNGS. 4. COPD. 5. HYPERTENSION. 6. DIABETES MELLITUS TYPE 2, INSULIN-DEPENDENT. 7. ACUTE RENAL INSUFFICIENCY. 8. PAST HISTORY OF CEREBROVASCULAR ACCIDENT WITH RIGHT HEMIPARESIS. 9. EXPRESSIVE APHASIA. 10. DEPRESSION. 11. PROBABLE UNDERLYING DEMENTIA. 12. HISTORY OF PAROXYSMAL ATRIAL FIBRILLATION. 13. THE PATIENT HAS A HISTORY OF CORONARY ARTERY DISEASE. RECOMMENDATIONS: 1. Continue current treatment. 2. Continue beta jaxon. 3. Continue aspirin and Plavix. 4. Continue metoprolol. 5. Continue isosorbide mononitrate tablet. 6. We will follow with you. 7. Later would recommend that the patient have an outpatient Cardiolite stress test with Lexiscan. 8. Note, 30 minutes spent on this patient, more than *------* minutes of time spent on direct patient care and also discussions with the patient and also with Dr. Gipson, attending physician hospitalist on this patient. DICTATING PHYSICIAN: ABELARDO RAMIREZ M.D. [id number] Y#: [id number] ID: [id number] JOB#: [id number] ACCT: [id number] cc: >
[2016-08-22] MEDS: INSULIN REG, HUMAN 100 UNIT/ML 3 ML VIAL (PYX) SUBCUT PRN ×2 (16:46→23:44)
[2016-08-22] MEDS: TRAZODONE HCL 50 MG TABLET PO SCH (22:59)
[2016-08-23] MEDS: LEVALBUTEROL HCL NEB 1.25 MG/3 ML AMPUL NEB SCH ×4 (00:20→11:40)
[2016-08-23] MEDS: IPRATROPIUM BROMIDE 0.02% NEB 0.5 MG/2.5 ML AMPUL NEB SCH ×4 (00:20→11:40)
[2016-08-23] MEDS: LANSOPRAZOLE 30 MG TAB.RAP.DR PO SCH (06:29)
[2016-08-23] MEDS: GABAPENTIN 400 MG CAPSULE PO SCH (06:29)
[2016-08-23] MEDS: EZETIMIBE 10 MG TABLET PO SCH (09:21)
[2016-08-23] MEDS: ISOSORBIDE MONONITRATE 60 MG TAB.ER.24H PO SCH (09:21)
[2016-08-23] MEDS: POLYETHYLENE GLYCOL 3350 POWDER 17 GM/1 PACKET PO SCH (09:21)
[2016-08-23] MEDS: DOCUSATE SODIUM 100 MG CAPSULE PO SCH (09:21)
[2016-08-23] MEDS: METOPROLOL TARTRATE 50 MG TABLET PO SCH (09:21)
[2016-08-23] MEDS: LEVOFLOXACIN 750 MG TABLET PO SCH (09:22)
[2016-08-23] MEDS: PAROXETINE HCL 20 MG TABLET PO SCH (09:22)
[2016-08-23] MEDS: CLOPIDOGREL BISULFATE 75 MG TABLET PO SCH (09:22)
[2016-08-23] MEDS: ASPIRIN 81 MG TABLET, ENT COATED PO SCH (09:22)
[2016-08-23] MEDS: FUROSEMIDE INJ/PF 40 MG/4 ML SDV IV SCH (09:22)
[2016-08-23] MEDS: INSULIN GLARGINE,HUM.REC.ANLOG 300 UNIT/3 ML INSULN.PEN SUBCUT SCH (09:23)
[2016-08-23] MEDS: DIGOXIN 0.125 MG TABLET PO SCH (09:23)
[2016-08-23] MEDS: ENOXAPARIN SODIUM INJ 40 MG/0.4 ML DISP.SYRIN SUBCUT SCH (09:26)
[2016-08-23] MEDS ORDERED: ISOSORBIDE MONONITRATE 60 MG TAB.ER.24H PO SCH (10:00)
[2016-08-23] MEDS ORDERED: PREDNISONE 20 MG TABLET PO SCH (10:00)
[2016-08-23 13:13] VITALS: BP 152/55
--- NOTE | 2016-08-23 15:12 | PDOC DISCHARGE SUMMARY ---
General - Admit/Disc Date/PCP Admission Date/Primary Care Provider: 08/20/16 10:15 ANU ASTUDILLO Discharge Date: 08/23/16 - Discharge Diagnosis (1) Congestive heart failure Is this a current diagnosis for this admission?: Yes (2) NSTEMI (non-ST elevated myocardial infarction) Is this a current diagnosis for this admission?: Yes (3) COPD (chronic obstructive pulmonary disease) Is this a current diagnosis for this admission?: Yes (5) HTN (hypertension) Is this a current diagnosis for this admission?: Yes (6) Atrial fibrillation Is this a current diagnosis for this admission?: Yes (7) Cerebral vascular disease Is this a current diagnosis for this admission?: Yes (8) Depression Is this a current diagnosis for this admission?: Yes (9) Diabetes mellitus type 2, controlled, without complications Is this a current diagnosis for this admission?: Yes (10) GERD (gastroesophageal reflux disease) Is this a current diagnosis for this admission?: Yes - Additional Information Discharge Diet: Cardiac - no fat low salt, Diabetic - no concentrated sweets Discharge Activity: Activity As Tolerated, Balance Activity w/Rest, Weigh Daily Home Medications: Albuterol Sulfate [Ventolin HFA MDI 18 GM] 2 puff IH Q4HP PRN 08/20/16 Aspirin [Aspirin EC] 81 mg PO DAILY 08/20/16 Clopidogrel Bisulfate [Plavix 75 mg Tablet] 75 mg PO DAILY 08/20/16 Cranberry [Cranberry 500 mg Capsule] 1,000 mg PO BID@0800,1600 08/20/16 Digoxin [Lanoxin 0.125 mg Tablet] 0.125 mg PO DAILY 08/20/16 Ezetimibe [Zetia 10 mg Tablet] 10 mg PO DAILY 08/20/16 Fluticasone Propionate [Flonase Nasal [place] 50 Mcg/[place] 16 gm] 2 spray IH DAILY 08/20/16 Gabapentin [Neurontin 300 mg Capsule] 1,200 mg PO Q8 08/20/16 Insulin Aspart [Novolog Insulin (Aspart) 100 unit/mL] 0 units SQ ASDIR PRN 08/20 Insulin Glargine,Hum.rec.anlog [Lantus] 65 unit SQ QAM 08/20/16 Ipratropium/Albuterol Sulfate [Duoneb 3 ml Ampul] 1 vial IH Q6 08/20/16 Pantoprazole Sodium 40 mg PO DAILY 08/20/16 Paroxetine HCl [Paxil] 40 mg PO DAILY 08/20/16 Polyethylene Glycol 3350 [Miralax Powder 17 gm/Packet] 17 gm PO DAILY 08/20/16 Trazodone HCl [Desyrel 50 mg Tablet] 75 mg PO QHS 08/20/16 Vit A/Vit C/Vit E/Zinc/Copper [Preservision Areds Softgel] 2 cap PO BID Isosorbide Mononitrate [Imdur 60 mg Tablet.er] 90 mg PO DAILY #30 tab.er.24h 10/08 Levofloxacin [Levaquin 750 mg Tablet] 750 mg PO DAILY #6 tablet 08/23/16 Metoprolol Tartrate [Lopressor 50 mg Tablet] 100 mg PO Q12 #60 tablet 08/23/16 Prednisone [Sterapred Ds] 1 pkg PO ASDIR PRN 12 Days 08/23/16 Additional Information: Stress test as outpatient with primary care physician or Dr. Baumann. Follow-up with pulmonary or oncology for workup of pulmonary nodules. History of Present Illness Patient complains of: Shortness of breath History of Present Illness: REI ROBLES is a 81 year old female, with history of paroxysmal atrial fibrillation, hypertension, diabetes mellitus, COPD but unknown to the patient and family presents to the hospital because of shortness of breath of 2 days duration. No reported chest pain, paroxysmal nocturnal dyspnea nor orthopnea. No reported weight gain as well. No chills or fever. Intermittently the patient would have some cough with clear phlegm. Patient intermittently will have some sinus congestion mainly on the left side with postnasal dripping. 2 days ago the patient started to develop some shortness of breath and wheezing. Patient started using her nebulizers more frequently without significant help. Today she woke up with a lot of wheezing again. She started to use nebulizers without any help therefore the patient was brought to the hospital where she was given intravenous steroids as well as bronchodilators with partial relief of symptoms. The patient was then referred for admission. O2 saturation reportedly drop with activity but the patient's baseline activity is bed bound and wheelchair bound. Hospital Course Hospital Course: The patient was admitted to telemetry. The patient was continued on bronchodilators and steroids. Antibiotic with Levaquin was started. Patient was begun on intravenous Lasix for possible congestive heart failure. Chest x- ray did not reveal significant congestion. Cardiac enzymes were abnormal. Cardiology was consulted and a possibility of non-ST elevation myocardial infarction was made although congestive heart failure is not present. Troponins were trending down. Patient recommended to continue antiplatelet therapy and beta jaxon. Likewise to increase nitrates. Patient subsequently improved. Stress test recommended can be done on an outpatient basis. A VQ scan was obtained and pulmonary embolism was ruled out. A chest CT scan was obtained for possible pneumonia or fibrosis but abdominal views were noted. At this point the family and the patient was educated about the findings on the CT scan. She had a history of malignancy in the past therefore workup was recommended. However the patient wants to go home and family agrees patient to go home and therefore they were advised to follow-up with pulmonary as well as oncology service for workup of pulmonary nodules and they were informed as could be malignancy. The rest of the hospital stay is unremarkable. She was eventually discharged home with above instructions. Physical Exam Vital Signs: Temp Pulse Resp BP Pulse Ox 97.9 F 60 16 142/54 H 100 08/23/16 12:48 08/23/16 12:48 08/23/16 12:48 08/23/16 12:48 08/23/16 12:48 Pulse Oximeter Continuous Start: 08/20/16 10: 15 Freq: RTQ4 Status: Discharge Document 08/23/16 11:40 [facility] [place]Rec: 08/23/16 11:51 [facility] [place] [email or web address][place] Pulse Oximetry Assessment Oxygen Saturation (92-100) 100 Oxygen Delivery Method Room Air Fraction of Inspired Oxygen (FIO2) 21 Equipment Usage Equipment Standby Continuous SpO2 Machine # N 1 Intake & Output 08/22/16 08/23/16 08/24/16 06:59 06:59 06:59 Intake Total 470 1272 Output Total 250 900 Balance 220 372 Weight 82.4 kg 80.4 kg General appearance: PRESENT: no acute distress, cooperative Head exam: PRESENT: normocephalic Eye exam: PRESENT: EOMI Mouth exam: PRESENT: moist, neck supple Neck exam: ABSENT: JVD Respiratory exam: PRESENT: clear to auscultation ashanti - Anteriorly, rhonchi - Occasional posteriorly Cardiovascular exam: PRESENT: irregular rhythm. ABSENT: gallop GI/Abdominal exam: PRESENT: normal bowel sounds, soft. ABSENT: distended, tenderness Extremities exam: PRESENT: other - Edema significantly improved Skin exam: PRESENT: dry, warm. ABSENT: cyanosis Results Laboratory Results: 08/22/16 06:55 08/21/16 02:57 08/20/16 08/20/16 08/20/16 12:28 12:28 20:00 Creatine Kinase 75 76 Troponin I 0.019 08/20/16 08/21/16 08/21/16 20:00 02:57 02:57 Creatine Kinase 102 Troponin I 0.017 0.451 08/21/16 08/22/16 06:06 06:55 Creatine Kinase Troponin I 0.977 0.505 Impressions: Chest X-Ray 08/21/16 00:00 IMPRESSION: NO ACUTE CARDIOPULMONARY PROCESS. NO SIGNIFICANT CHANGE FROM PRIOR STUDY. Lung Scan-VQ NM 08/21/16 00:00 IMPRESSION: LOW PROBABILITY FOR PULMONARY EMBOLUS. Chest CT 08/22/16 00:00 IMPRESSION: SCATTERED SOLID AND SUB SOLID PULMONARY NODULES MEASURING UP TO 6 MM WHICH MAY BE INFECTIOUS, INFLAMMATORY, OR NEOPLASTIC. RECOMMEND COMPARISON TO PRIOR STUDIES IF AVAILABLE AND FOLLOWUP NONCONTRAST CT CHEST IN 3 MONTHS TO ENSURE STABILITY OR RESOLUTION. TRACE BILATERAL PLEURAL EFFUSIONS. ADDITIONAL CHRONIC CHANGES ABOVE. Qualifiers PATEINT BEING DISCHARGED WITH ANY OF THE FOLLOWING DIAGNOSIS?: OK OK Pt being discharged on Aspirin therapy?: Yes OK Pt being discharged on Statins?: Yes OK Pt discharged ACEI/ARBS?: No Reason(s) for not prescribing ACEI/ARBS:: Not indicated Plan Discharge Plan: Appointment with primary care physician in one week. Appointment with cardiology in 1-2 weeks. Appointment with pulmonary and oncology in 1-2 weeks. Time Spent: Less than 30 Minutes
--- NOTE | 2016-08-23 18:13 | PROGRESS NOTE E ---
Progress Note NAME: REI ROBLES : 1935 AGE: 81Y DATE: 08/23/2016 ROOM: 407 SUBJECTIVE: The patient still has expressive aphasia but seems to be comfortable and sitting up in the chair. She denies any chest pain or discomfort. There is no shortness of breath or cough. There is no PND or orthopnea. There is no arrhythmia seen. There is no recurrence of TIA or CVA symptoms. OBJECTIVE: GENERAL: On examination, the patient is mildly obese. VITAL SIGNS: She is afebrile with a temperature of 97.5 degrees Fahrenheit. Pulse is 60 beats per minute, blood pressure is 105/88, respirations are 15 per minute and O2 saturations are 100% on room air. HEENT: Head is atraumatic, normocephalic. Eyes: Pupils are equal, round, regular and reactive to light and accommodation. Extraocular movements are normal. There is no conjunctival pallor. There is no scleral icterus. ENT is negative. NECK: Supple. There is JVD. Carotids are equal. There is no bruit. There is no goiter. Trachea is central. LUNGS: Show some diminished air entry, prolonged expiration on auscultation with a few dry crackles in both bases. No rales of CHF. She has hyperresonance on percussion. There is no rhonchi or wheezing on auscultation. HEART: S1 and S2 are heard. There is no S3 gallop. There is no S4 gallop. There is a systolic murmur in the left sternal border and the apex. There is no rub. ABDOMEN: Soft, nontender. There is no hepatosplenomegaly. Bowel sounds are well heard. There are no tender areas or masses. EXTREMITIES: Femorals are diminished. There are no femoral bruits. Leg pulses are diminished. There is no pedal edema. There is no DVT or cellulitis. There is no cyanosis or clubbing. There is no calf tenderness. CENTRAL NERVOUS SYSTEM: The patient has expressive aphasia and mild old right hemiparesis. PSYCHIATRIC: The patient does not appear to be agitated or depressed. DIAGNOSTIC DATA: The patient's blood sugar is 158. Note that the troponin I is *------*. IMPRESSION: 1. TROPONIN I LEAK WITH SOME SUBTLE EKG CHANGES IN A PATIENT WITH A HISTORY OF CORONARY ARTERY DISEASE. Need to assume that this is non-ST elevation [place] since the patient cannot give a good history due to expressive aphasia. The troponin I is trending down and EKG looks stable from yesterday. 2. DOUBT CONGESTIVE HEART FAILURE WITH NORMAL EJECTION FRACTION. Chest x-ray shows no heart failure. 3. POSSIBLE INFECTIOUS PROCESS IN BOTH LUNGS, RIGHT GREATER THAN LEFT, WHICH APPEARS *------* RALES IN BOTH LUNGS. Need to rule out metastasis since the patient has a history of breast cancer and also renal cancer. Would recommend a PET scan to be done as an outpatient by her primary care physician. 4. COPD. 5. HYPERTENSION. 6. DIABETES MELLITUS TYPE 2, INSULIN DEPENDENT. 7. ACUTE RENAL INSUFFICIENCY. Note that the patient's GFR has improved on 08/21. 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 8. PAST HISTORY OF CEREBROVASCULAR ACCIDENT WITH RIGHT HEMIPARESIS. 9. EXPRESSIVE APHASIA DUE TO OLD CVA. 10. DEPRESSION. 11. PROBABLE UNDERLYING DEMENTIA. 12. HISTORY OF PAROXYSMAL ATRIAL FIBRILLATION. No atrial fibrillation this admission. 13. THE PATIENT HAS A HISTORY OF CORONARY ARTERY DISEASE. No anginal symptoms. RECOMMENDATIONS: Continue the patient on beta-jaxon. Continue aspirin and Plavix. Continue metoprolol. Increase the patient's isosorbide mononitrate to 90 mg p.o. daily. Would recommend that the patient have outpatient Cardiolite Lexiscan stress test which can be arranged by her PMD or the patient can see me if she so desires. Also would recommend that the patient have a PET scan to make sure that the lung lesions seen are not metastatic. NOTE: Thirty minutes spent on this patient with more than 50% spent on direct patient care and also discussions with the hospitalist regarding the increase in medication and the treatment plan. Will sign off the case. the patient will decide as to which promotions specialist she wants to follow up with. Thanking you. DICTATING PHYSICIAN: ABELARDO RAMIREZ M.D. [id number] TRICIAY#: [id number] ID: [id number] JOB#: [id number] ACCT: [id number] cc: >
== END 2016-08-23 14:08 | disposition home health service (06) | DRG 280 ==
LOC: ER 05:29 → EH 08:26 → OBSVTOIN 10:15 → 4N 18:35
PROVIDERS: ADMIT Family Medicine; ATTEND Family Medicine
DX: I50.9 Heart failure, unspecified (principal); I21.4 Non-ST elevation (NSTEMI) myocardial infarction; J18.9 Pneumonia, unspecified organism; I69.351 Hemiplegia and hemiparesis following cerebral infarction affecting right dominant side; E11.9 Type 2 diabetes mellitus without complications; J44.9 Chronic obstructive pulmonary disease, unspecified; I48.2 Chronic atrial fibrillation; I10 Essential (primary) hypertension; I25.10 Atherosclerotic heart disease of native coronary artery without angina pectoris; K21.9 Gastro-esophageal reflux disease without esophagitis; R09.02 Hypoxemia; F32.9 Major depressive disorder, single episode, unspecified; F03.90 Unspecified dementia, unspecified severity, without behavioral disturbance, psychotic disturbance, mood disturbance, and anxiety; I69.320 Aphasia following cerebral infarction; Z87.891 Personal history of nicotine dependence; Z79.01 Long term (current) use of anticoagulants; Z79.82 Long term (current) use of aspirin; Z79.4 Long term (current) use of insulin
CPT/HCPCS: 36415; 71010; 71020; 71250; 78582; 80048; 80053; 80162; 82550; 82553; 82803; 82962; 83036; 83880; 84439; 84443; 84484; 85025; 87040; 87086; 93005; 93010; 93306; 94640; 94762; 96374; 96375; 99291; A9540; A9567; J1650; J1815; J1940; J2930; J3490; J7512; J7620; Q9969

== ENCOUNTER 2016-09-09 18:04 | Emergency (ER) | payer MEDICARE, OTHER ==
--- NOTE | 2016-09-09 18:27 | ER Document Report ---
ED Medical Screen (RME) - General Stated Complaint: THROAT PROBLEM Time seen by provider: 18:24 Mode of Arrival: Wheelchair Information source: Patient Notes: 81-year-old female presents to ED for right sided neck pain. She had a stroke 15 years ago with right sided weakness. This pain in her neck started 2 days ago but is able to eat with mild aphasia. I have greeted and performed a rapid initial assessment of this patient. A comprehensive ED assessment and evaluation of the patient, analysis of test results and completion of medical decision making process will be conducted by an additional ED providers. TRAVEL OUTSIDE OF THE [place] IN LAST 30 DAYS: No - Related Data Allergies/Adverse Reactions: No Known Allergies Allergy (Verified 09/09/16 18:21) Past Medical History - Past Medical History Cardiac Medical History: Reports: Hx Atrial Fibrillation, Hx Coronary Artery Disease, Hx Hypertension Pulmonary Medical History: Reports: Hx COPD - On record Neurological Medical History: Reports: Hx Cerebrovascular Accident - right hemiparesis Endocrine Medical History: Reports: Hx Diabetes Mellitus Type 1, Hx Diabetes Mellitus Type 2 GI Medical History: Reports: Hx Gastroesophageal Reflux Disease Psychiatric Medical History: Reports: Hx Depression Past Surgical History: Reports: Hx Breast Surgery - right mastectomy, Hx Kidney (Renal Surgery) - right kidney removed, Hx Mastectomy - Right nephrectomy, Hx Vascular Surgery - Right fem-pop bypass, Left vein harvesting - Immunizations Hx Diphtheria, Pertussis, Tetanus Vaccination: No Physical Exam - Vital signs Vitals: Temp Pulse Resp BP Pulse Ox 98.0 F 63 16 145/98 H 95 09/09/16 18:09 09/09/16 18:09 09/09/16 18:09 09/09/16 18:09 09/09/16 18:09 Course - Vital Signs Vital signs: Temp Pulse Resp BP Pulse Ox 98.0 F 63 16 145/98 H 95 09/09/16 18:09 09/09/16 18:09 09/09/16 18:09 09/09/16 18:09 09/09/16 18:09
[2016-09-09 19:04] LABS: ABSOLUTE EOSINOPHILS # (AUTO) 0.2 10^3/uL (0.0-0.6); ABSOLUTE LYMPHOCYTES (AUTO) 0.8 10^3/uL (0.5-4.7); ABSOLUTE MONOCYTES (AUTO) 0.8 10^3/uL (0.1-1.4); ABSOLUTE NEUT (AUTO) 7.8 10^3/uL (1.7-8.2); BASOPHILS % (AUTO) 0.3 % (0-2); EOSINOPHILS % (AUTO) 2.3 % (0-6); HEMATOCRIT 37.4 % (36.0-47.0); HEMOGLOBIN 11.8 g/dL (12.0-15.5); LYMPHOCYTES % (AUTO) 8.8 % (13-45); MEAN CORPUSCULAR HEMOGLOBIN 28.1 pg (27.0-33.4); MEAN CORPUSCULAR HGB CONC 31.6 g/dL (32.0-36.0); MEAN CORPUSCULAR VOLUME 89 fl (80-97); MONOCYTES % (AUTO) 7.8 % (3-13); RED CELL DISTRIBUTION WIDTH 14.3 % (11.5-14.0); SEGMENTED NEUTROPHILS % (AUTO) 80.8 % (42-78); WHITE BLOOD COUNT 9.7 10^3/uL (4.0-10.5)
[2016-09-09 19:12] LABS: PROTHROMBIN TIME 12.3 SEC (11.4-15.4)
[2016-09-09 19:13] LABS: PARTIAL THROMBOPLASTIN TIME 30.2 SEC (23.5-35.8)
[2016-09-09 19:27] LABS: ALANINE AMINOTRANSFERASE 34 U/L (9-52); ALBUMIN 3.2 g/dL (3.5-5.0); ALKALINE PHOSPHATASE 75 U/L (38-126); ANION GAP 9 (5-19); ASPARTATE AMINO TRANSFERASE 26 U/L (14-36); BILIRUBIN,TOTAL 0.5 mg/dL (0.2-1.3); BLOOD UREA NITROGEN 16 mg/dL (7-20); CALCIUM 8.7 mg/dL (8.4-10.2); CARBON DIOXIDE 29 mmol/L (22-30); CHLORIDE 96 mmol/L (98-107); CREATININE RESULT 0.91 mg/dL (0.52-1.25); GLUCOSE 181 mg/dL (75-110); POTASSIUM 4.8 mmol/L (3.6-5.0); SODIUM 133.7 mmol/L (137-145); TOTAL PROTEIN 5.6 g/dL (6.3-8.2)
[2016-09-09] MEDS ORDERED: ACETAMINOPHEN 325 MG TABLET PO ONE (21:21)
--- NOTE | 2016-09-09 21:25 | ER Document Report ---
ED General - General Chief Complaint: Neck Pain >24hrs old Stated Complaint: THROAT PROBLEM Mode of Arrival: Wheelchair TRAVEL OUTSIDE OF THE [place] IN LAST 30 DAYS: No - HPI Patient complains to provider of: right neck pain Notes: Patient's coming in for evaluation for right neck pain has been ongoing intermittently for her son months. Patient has a history of stroke according to the bedside patient has had multiple evaluations multiple small studies with no clear etiology seen. Patient is able to eat and drink denies any change states pain tonight. Denies fevers chills nausea vomiting denies any neurological symptoms. - Related Data Allergies/Adverse Reactions: No Known Allergies Allergy (Verified 09/09/16 18:21) Past Medical History - General Information source: Patient - Social History Smoking Status: Never Smoker Chew tobacco use (# tins/day): No Family History: CAD, DM Patient has suicidal ideation: No Patient has homicidal ideation: No - Past Medical History Cardiac Medical History: Reports: Hx Atrial Fibrillation, Hx Coronary Artery Disease, Hx Hypertension Pulmonary Medical History: Reports: Hx COPD - On record Neurological Medical History: Reports: Hx Cerebrovascular Accident - right hemiparesis Endocrine Medical History: Reports: Hx Diabetes Mellitus Type 1, Hx Diabetes Mellitus Type 2 Renal/ Medical History: Denies: Hx Peritoneal Dialysis GI Medical History: Reports: Hx Gastroesophageal Reflux Disease Psychiatric Medical History: Reports: Hx Depression Past Surgical History: Reports: Hx Breast Surgery - right mastectomy, Hx Kidney (Renal Surgery) - right kidney removed, Hx Mastectomy - Right nephrectomy, Hx Vascular Surgery - Right fem-pop bypass, Left vein harvesting - Immunizations Hx Diphtheria, Pertussis, Tetanus Vaccination: No Review of Systems - Review of Systems Constitutional: No symptoms reported EENT: Other - Right neck pain Cardiovascular: No symptoms reported Respiratory: No symptoms reported Gastrointestinal: No symptoms reported Genitourinary: No symptoms reported Female Genitourinary: No symptoms reported Musculoskeletal: No symptoms reported Skin: No symptoms reported Hematologic/Lymphatic: No symptoms reported Neurological/Psychological: No symptoms reported Physical Exam - Vital signs Vitals: Temp Pulse Resp BP Pulse Ox 98.0 F 63 16 145/98 H 95 09/09/16 18:09 09/09/16 18:09 09/09/16 18:09 09/09/16 18:09 09/09/16 18:09 Interpretation: Normal - General General appearance: Appears well, Alert - HEENT Head: Normocephalic, Atraumatic Eyes: Normal Pupils: PERRL Ears: Normal External canal: Normal Tympanic membrane: Normal Neck: Normal, Other - No carotid bruits no lymphadenopathy no masses - Respiratory Respiratory status: No respiratory distress Chest status: Nontender Breath sounds: Normal Chest palpation: Normal - Cardiovascular Rhythm: Regular Heart sounds: Normal auscultation Murmur: No - Abdominal Inspection: Normal Distension: No distension Bowel sounds: Normal Tenderness: Nontender Organomegaly: No organomegaly - Back Back: Normal, Nontender - Extremities General upper extremity: Normal inspection, Nontender, Normal color, Normal ROM , Normal temperature General lower extremity: Normal inspection, Nontender, Normal color, Normal ROM , Normal temperature, Normal weight bearing. No: Bib's sign - Neurological Neuro grossly intact: Yes Cognition: Normal Orientation: AAOx4 Joshua Coma Scale Eye Opening: Spontaneous Joshua Coma Scale Verbal: Oriented Joshua Coma Scale Motor: Obeys Commands Joshua Coma Scale Total: 15 Speech: Normal Motor strength normal: LUE, RUE, LLE, RLE Sensory: Normal - Psychological Associated symptoms: Normal affect, Normal mood - Skin Skin Temperature: Warm Skin Moisture: Dry Skin Color: Normal Course - Re-evaluation Re-evalutation: 09/09/16 23:08 Lab work was performed in triage which was not needed for evaluation. Soft tissue neck was performed showing no signs of any critical etiologies also no signs of [place] syndrome or other pathology. Patient is also findings were discussed with and recommended follow-up with primary care physician. - Vital Signs Vital signs: Temp Pulse Resp BP Pulse Ox 98.3 F 70 16 101/82 95 09/09/16 21:31 09/09/16 21:31 09/09/16 21:31 09/09/16 21:31 09/09/16 21:31 - Laboratory Result Diagrams: 09/09/16 18:36 09/09/16 18:36 Laboratory results interpreted by me: 09/09/16 09/09/16 18:36 18:36 Hgb 11.8 L MCHC 31.6 L RDW 14.3 H Seg Neutrophils % 80.8 H Lymphocytes % 8.8 L Sodium 133.7 L Chloride 96 L Est GFR (Non-Af Amer) 59 L Glucose 181 H Total Protein 5.6 L Albumin 3.2 L Discharge - Discharge Clinical Impression: Neck pain on right side Condition: Good Disposition: HOME, SELF-CARE Additional Instructions: There is no critical findings that would explain your right-sided neck pain. I recommend following up with primary care physician for further evaluation. Referrals: ANU ASTUDILLO MD [Primary Care Provider] - Follow up in 3-5 days
[2016-09-09 21:36] VITALS: BP 101/82
== END 2016-09-09 21:37 | disposition home or self-care (01) ==
LOC: ER 18:04
DX: M54.2 Cervicalgia (principal); J44.9 Chronic obstructive pulmonary disease, unspecified; I48.91 Unspecified atrial fibrillation; I25.10 Atherosclerotic heart disease of native coronary artery without angina pectoris; I10 Essential (primary) hypertension; I69.351 Hemiplegia and hemiparesis following cerebral infarction affecting right dominant side; Z90.11 Acquired absence of right breast and nipple; Z90.5 Acquired absence of kidney
CPT/HCPCS: 99283; 36415; 85025; 85610; 85730; 80053; 70360; A9270

== ENCOUNTER 2016-09-25 20:15 | Emergency (ER) | payer MEDICARE, OTHER ==
--- NOTE | 2016-09-25 20:31 | ER Document Report ---
ED Medical Screen (RME) - General Stated Complaint: POSSIBLE HIGH BP Notes: Blood pressure at home tonight was high. No symptoms below voiced such as chest pain, shortness of breath, or headache. Additional blood pressure medicine added to her regimen by Dr. Rodriguez this past Tuesday. No fever, no nausea, vomiting or diarrhea. I have greeted and performed a rapid initial assessment of this patient. A comprehensive ED assessment and evaluation of the patient, analysis of test results and completion of the medical decision making process will be conducted by additional ED providers. TRAVEL OUTSIDE OF THE [place] IN LAST 30 DAYS: No - Related Data Allergies/Adverse Reactions: No Known Allergies Allergy (Verified 09/25/16 20:26) Past Medical History - Past Medical History Cardiac Medical History: Reports: Hx Atrial Fibrillation, Hx Coronary Artery Disease, Hx Hypertension Pulmonary Medical History: Reports: Hx COPD - On record Neurological Medical History: Reports: Hx Cerebrovascular Accident - right hemiparesis Endocrine Medical History: Reports: Hx Diabetes Mellitus Type 1, Hx Diabetes Mellitus Type 2 Renal/ Medical History: Denies: Hx Peritoneal Dialysis GI Medical History: Reports: Hx Gastroesophageal Reflux Disease Psychiatric Medical History: Reports: Hx Depression Past Surgical History: Reports: Hx Breast Surgery - right mastectomy, Hx Kidney (Renal Surgery) - right kidney removed, Hx Mastectomy - Right nephrectomy, Hx Vascular Surgery - Right fem-pop bypass, Left vein harvesting - Immunizations Hx Diphtheria, Pertussis, Tetanus Vaccination: No
[2016-09-25 21:07] LABS: ABSOLUTE BASOPHILS # (AUTO) 0.1 10^3/uL (0.0-0.2); ABSOLUTE EOSINOPHILS # (AUTO) 0.2 10^3/uL (0.0-0.6); ABSOLUTE MONOCYTES (AUTO) 0.8 10^3/uL (0.1-1.4); BASOPHILS % (AUTO) 0.9 % (0-2); EOSINOPHILS % (AUTO) 1.8 % (0-6); HEMATOCRIT 39.1 % (36.0-47.0); HEMOGLOBIN 12.9 g/dL (12.0-15.5); HGB HCT DIFFERENCE -0.4; LYMPHOCYTES % (AUTO) 10.1 % (13-45); MEAN CORPUSCULAR HEMOGLOBIN 28.4 pg (27.0-33.4); MEAN CORPUSCULAR VOLUME 86 fl (80-97); MONOCYTES % (AUTO) 7.9 % (3-13); RED BLOOD COUNT 4.53 10^6/uL (3.72-5.28); RED CELL DISTRIBUTION WIDTH 13.8 % (11.5-14.0); SEGMENTED NEUTROPHILS % (AUTO) 79.3 % (42-78); WHITE BLOOD COUNT 10.1 10^3/uL (4.0-10.5)
[2016-09-25 21:18] LABS: PROTHROMBIN TIME 12.5 SEC (11.4-15.4)
--- NOTE | 2016-09-25 22:12 | EKG REPORT ---
SEVERITY:- OTHERWISE NORMAL ECG - SINUS RHYTHM LEFT AXIS DEVIATION : Confirmed by: Ayaka De León 25-Sep-2016 22:11:15
[2016-09-25] MEDS ORDERED: HYDROCHLOROTHIAZIDE 25 MG TABLET PO ONE (22:22)
--- NOTE | 2016-09-26 00:02 | ER Document Report ---
ED General - General Chief Complaint: High Blood Pressure Stated Complaint: POSSIBLE HIGH BP Notes: Patient is a 1-year-old female presents with complaint of high blood pressure. She is followed by Dr. felix. She's on Lopressor 100 mg twice a day. Dr. Ann also recently added losartan to her regimen. said that the patient had missed her morning dose of Lopressor. He gave her the afternoon dose. He knows her blood pressure continued go up. When she arrived in triage her systolic blood pressure was over 200 and her diastolic blood pressure was over 100. She has no complaints. She denies any symptoms. She denies any chest pain. No headache. No vomiting. She has otherwise appeared well according to the . The said he had checked her blood pressure dissection case she initially said that she felt as if it was high. Despite feeling this way she never had a headache or any chest pain. Patient's says that she has had difficulty: Her pressure ever since she had broken her ankle over a month ago. After breaking her ankle she had to be in rehabilitation for several weeks and then came home recently and has been cared for by the and home health care. Patient has had a stroke in the past which has left her with deficits of sometimes difficulty understanding some questions, sometimes giving abnormal answers questions, discoordination of the right side, and intermittent pain in the right side. TRAVEL OUTSIDE OF THE [place] IN LAST 30 DAYS: No - Related Data Allergies/Adverse Reactions: No Known Allergies Allergy (Verified 09/25/16 20:26) Past Medical History - Social History Smoking Status: Unknown if Ever Smoked Frequency of alcohol use: None Drug Abuse: None Family History: CAD, DM - Past Medical History Cardiac Medical History: Reports: Hx Atrial Fibrillation, Hx Coronary Artery Disease, Hx Hypertension Pulmonary Medical History: Reports: Hx COPD - On record Neurological Medical History: Reports: Hx Cerebrovascular Accident - right hemiparesis Endocrine Medical History: Reports: Hx Diabetes Mellitus Type 1, Hx Diabetes Mellitus Type 2 Renal/ Medical History: Denies: Hx Peritoneal Dialysis GI Medical History: Reports: Hx Gastroesophageal Reflux Disease Psychiatric Medical History: Reports: Hx Depression Past Surgical History: Reports: Hx Breast Surgery - right mastectomy, Hx Kidney (Renal Surgery) - right kidney removed, Hx Mastectomy - Right nephrectomy, Hx Vascular Surgery - Right fem-pop bypass, Left vein harvesting - Immunizations Hx Diphtheria, Pertussis, Tetanus Vaccination: No Review of Systems - Review of Systems Notes: My Normal Review Basic REVIEW OF SYSTEMS: CONSTITUTIONAL : Denies fever, chills, or sweats. Denies recent illness. EENT: Denies eye, ear, throat, or mouth pain or symptoms. Denies nasal or sinus congestion. CARDIOVASCULAR: Denies chest pain. RESPIRATORY: Denies cough, cold, or chest congestion. Denies shortness of breath, difficulty breathing, or wheezing. GASTROINTESTINAL: Denies abdominal pain. Denies nausea, vomiting, or diarrhea. Denies constipation. Last BM: MUSCULOSKELETAL: Denies neck or back pain or joint pain or swelling. SKIN: Denies rash or skin lesions. NEUROLOGICAL: Denies altered mental status or loss of consciousness. Denies headache. Denies weakness or paralysis or loss of use of either side. Denies problems with gait or speech. Denies sensory or motor loss. ALL OTHER SYSTEMS REVIEWED AND NEGATIVE. Physical Exam - Vital signs Vitals: Temp Pulse Resp BP Pulse Ox 97.6 F 72 18 210/84 H 95 09/25/16 20:27 09/25/16 20:27 09/25/16 20:27 09/25/16 20:27 09/25/16 20:27 - Notes Notes: General Appearance: Well nourished, alert, cooperative, no acute distress, no obvious discomfort. Well-appearing. Vitals: reviewed, See vital signs table. Head: no swelling or tenderness to the head Eyes: PERRL, EOMI, Conjuctiva clear Mouth: No decreasd moisture Throat: No tonsillar inflammation, No airway obstruction, No lymphadenopathy Neck: Supple, no neck tenderness, No thyromegaly Lungs: No wheezing, No rales, No rhonci, No accessory muscle use, good air exchange bilaterally. Heart: Normal rate, Regular rythm, No murmur, no rub Abdomen: Normal BS, soft, No rigidity, No abdominal tenderness, No guarding, no rebound, no abdominal masses, no organomegaly Extremities: strength 5/5 in all extremities, good pulses in all extremities, no swelling or tenderness in the extremities, no edema. Skin: warm, dry, appropriate color, no rash Neuro: speech clear, oriented x 2, normal affect, sometimes responds appropriately to questions. Patient sometimes bends responds with a typical answers; however, patient's says that this is normal for her since her stroke. On my exam patient is able to move all 4 extremities on her own without too much difficulty. I do not notice any significant weakness in any of her 4 extremities. Course - Vital Signs Vital signs: Temp Pulse Resp BP Pulse Ox 97.6 F 72 18 210/84 H 95 09/25/16 20:27 09/25/16 20:27 09/25/16 20:27 09/25/16 20:27 09/25/16 20:27 - Laboratory Result Diagrams: 09/25/16 20:53 09/25/16 20:53 Laboratory results interpreted by me: 09/25/16 20:53 Seg Neutrophils % 79.3 H Lymphocytes % 10.1 L - Transfer of Care Notes: 09/26/16 00:02 Patient's blood pressure has gradually improved since coming here. Sounds as if her blood pressures been difficult to control now for approximately a month. I will add hydrochlorothiazide to her regimen. Encouraged him to make sure that she does take her medications as prescribed and not miss dosages. She has no symptoms concerning for hypertensive emergency. I feel that she is safe to be discharged home. I encouraged her and the to return to ER immediately if she has chest pain, headache, or appears unwell in anyway or if her blood pressure continues to elevate despite taking her medications. agrees with plan and patient will be discharged home. Before starting the patient on hydrochlorothiazide a did ask about any history of hyponatremia or low-salt her sodium. denies her ever having any problems with hyponatremia in the past. Dictation of this chart was performed using voice recognition software; therefore, there may be some unintended grammatical errors. 09/26/16 00:05 Discharge - Discharge Clinical Impression: Hypertension Qualifiers: Hypertension type: essential hypertension Qualified Code(s): I10 - Essential ( primary) hypertension Condition: Good Disposition: HOME, SELF-CARE Additional Instructions: HIGH BLOOD PRESSURE REQUIRING TREATMENT: Your blood pressure is high. This is called "hypertension.". Your history and exam suggest that this is not a temporary problem. You need treatment of your blood pressure. There are many different medicines that treat blood pressure. If your medication causes unpleasant side effects, call your doctor. There are others you can try. Treating hypertension is a life-long investment in your health. HYDROCHLOROTHIAZIDE: Hydrochlorothiazide is a diuretic medication. Diuretics are often called "water pills." The medicine flushes excess salt and water from the body. Diuretics are used for fluid retention (such as heart failure, cirrhosis, or lung disease) and for blood pressure control. Often hydrochlorothiazide is combined with other medicines in the same pill. Most patients prefer to take the medicine in the morning. Hydrochlorothiazide makes extra urine, which can be a problem if you take the pill at night. Diuretics make you lose potassium. Sometimes a good diet with plenty of fruit is enough to replace it. Sometimes a potassium supplement is necessary. Or, hydrochlorothiazide may be combined with medicines that prevent potassium loss. We usually recommend a blood potassium test in a few weeks. Contact your doctor if you develop extreme fatigue, muscle weakness, lethargy, confusion, or palpitations. FOLLOW-UP CARE: If you have been referred to a physician for follow-up care, call the physician s office for an appointment as you were instructed or within the next two days. If you experience worsening or a significant change in your symptoms, notify the physician immediately or return to the Emergency Department at any time for re-evaluation. Please return to ER immediately. Of headaches, chest pain, or confused, or have any new strokelike symptoms. Please follow-up with Dr. Kurtz in 2-3 days for reevaluation. Please take the hydrochlorothiazide blood pressure medication the afternoon. Prescriptions: Hydrochlorothiazide 25 mg PO QPM #20 tablet Referrals: ANU ASTUDILLO MD [Primary Care Provider] - 09/28/16
[2016-09-26 01:05] VITALS: BP 182/91
== END 2016-09-26 00:35 | disposition home or self-care (01) ==
LOC: ER 20:15
DX: I10 Essential (primary) hypertension (principal); Z91.14 Patient's other noncompliance with medication regimen; I69.318 Other symptoms and signs involving cognitive functions following cerebral infarction; I69.398 Other sequelae of cerebral infarction; R27.8 Other lack of coordination; R52 Pain, unspecified; I25.10 Atherosclerotic heart disease of native coronary artery without angina pectoris; J44.9 Chronic obstructive pulmonary disease, unspecified; E11.9 Type 2 diabetes mellitus without complications; Z90.5 Acquired absence of kidney; Z79.899 Other long term (current) drug therapy
CPT/HCPCS: 36415; 71010; 85025; 85610; 93005; 93010; 99284

== ENCOUNTER 2016-10-22 02:12 | Inpatient (IN) | payer MEDICARE, OTHER ==
[2016-10-22] MEDS ORDERED: METHYLPREDNISOLONE INJ 125 MG/2 ML SDV IV ONE (02:39)
[2016-10-22] MEDS ORDERED: IPRATROPIUM/ALBUTEROL 0.5-2.5 MG/3 ML AMPUL NEB ONE (02:39)
--- NOTE | 2016-10-22 02:42 | ER Document Report ---
ED General - General Chief Complaint: Shortness Of Breath Stated Complaint: TROUBLE BREATHING Notes: Patient is a 81-year-old female presents for complaints of difficulty breathing started on 8:30 PM. She's a history of this the past. She is a former smoker. No fevers. Some cough. Chest pain. No vomiting. No diarrhea. No other complaints at this time. TRAVEL OUTSIDE OF THE [place] IN LAST 30 DAYS: No - Related Data Allergies/Adverse Reactions: No Known Allergies Allergy (Verified 09/25/16 20:26) Past Medical History - Social History Smoking Status: Former Smoker Frequency of alcohol use: None Drug Abuse: None Family History: CAD, DM - Past Medical History Cardiac Medical History: Reports: Hx Atrial Fibrillation, Hx Coronary Artery Disease, Hx Hypertension Pulmonary Medical History: Reports: Hx COPD - On record Neurological Medical History: Reports: Hx Cerebrovascular Accident - right hemiparesis Endocrine Medical History: Reports: Hx Diabetes Mellitus Type 1, Hx Diabetes Mellitus Type 2 Renal/ Medical History: Denies: Hx Peritoneal Dialysis GI Medical History: Reports: Hx Gastroesophageal Reflux Disease Psychiatric Medical History: Reports: Hx Depression Past Surgical History: Reports: Hx Breast Surgery - right mastectomy, Hx Kidney (Renal Surgery) - right kidney removed, Hx Mastectomy - Right nephrectomy, Hx Vascular Surgery - Right fem-pop bypass, Left vein harvesting - Immunizations Hx Diphtheria, Pertussis, Tetanus Vaccination: No Review of Systems - Review of Systems Notes: My Normal Review Basic REVIEW OF SYSTEMS: CONSTITUTIONAL : Denies fever, chills, or sweats. Denies recent illness. EENT: Denies eye, ear, throat, or mouth pain or symptoms. Denies nasal or sinus congestion. CARDIOVASCULAR: Denies chest pain. RESPIRATORY: Difficulty breathing GASTROINTESTINAL: Denies abdominal pain. Denies nausea, vomiting, or diarrhea. Denies constipation. Last BM: MUSCULOSKELETAL: Denies neck or back pain or joint pain or swelling. SKIN: Denies rash or skin lesions. NEUROLOGICAL: Denies altered mental status or loss of consciousness. Denies headache. Denies weakness or paralysis or loss of use of either side. Denies problems with gait or speech. Denies sensory or motor loss.. ALL OTHER SYSTEMS REVIEWED AND NEGATIVE. Physical Exam - Vital signs Vitals: Temp Pulse Resp BP Pulse Ox 97.7 F 74 24 H 202/83 H 86 L 10/22/16 02:17 10/22/16 02:17 10/22/16 02:17 10/22/16 02:17 10/22/16 02:17 - Notes Notes: General Appearance: Well nourished, alert, cooperative, mild to moderate moderate acute distress, no obvious discomfort. Vitals: reviewed, See vital signs table. Head: no swelling or tenderness to the head Eyes: PERRL, EOMI, Conjuctiva clear Mouth: No decreasd moisture Throat: No tonsillar inflammation, No airway obstruction, No lymphadenopathy Neck: Supple, no neck tenderness, No thyromegaly Lungs: Diffuse wheezing, No rales, No rhonci, No accessory muscle use, fair air exchange bilaterally. Heart: Normal rate, Regular rythm, No murmur, no rub Abdomen: Normal BS, soft, No rigidity, No abdominal tenderness, No guarding, no rebound, no abdominal masses, no organomegaly Extremities: strength 5/5 in all extremities, good pulses in all extremities, no swelling or tenderness in the extremities, no edema. Skin: warm, dry, appropriate color, no rash Neuro: speech clear, oriented x 3, normal affect, responds appropriately to questions. Course - Re-evaluation Re-evalutation: 10/22/16 05:11 Patient's wheezing is much improved. I she looks and feels much improved. I'm awaiting her laboratory results. 10/22/16 05:37 Patient's lung auscultation is to be improved compared to when she first arrived. I did turn off her oxygen. Unfortunately even at rest she does desaturate down to approximately 85% without oxygen. I placed her back on 3 L. Au[employer] saturations 92%. Due to her continuous oxygen recurrent metastases I do felt appropriate to admit her for further workup and treatment of what appears to be COPD exacerbation. I have sent a page to Dr. Astudillo and I am awaiting his return call. - Vital Signs Vital signs: Temp Pulse Resp BP Pulse Ox 97.7 F 74 18 113/56 L 95 10/22/16 02:17 10/22/16 02:17 10/22/16 07:01 10/22/16 07:01 10/22/16 07:01 - Laboratory Result Diagrams: 10/22/16 02:45 10/22/16 04:09 Laboratory results interpreted by me: 10/22/16 10/22/16 10/22/16 02:45 04:09 04:09 WBC 10.8 H RDW 14.5 H Seg Neutrophils % 82.4 H Lymphocytes % 5.1 L Absolute Neutrophils 8.9 H VBG pCO2 74.8 H* VBG HCO3 35.8 H Carbon Dioxide 33 H BUN 24 H Creatinine 1.28 H Est GFR ( Amer) 48 L Est GFR (Non-Af Amer) 40 L Glucose 151 H - EKG Interpretation by Me Additional EKG results interpreted by me: 10/22/16 05:06 EKG is reviewed and interpreted by me. EKG shows normal sinus rhythm with rate of [address] segment elevation or depression. No ischemic T wave inversions. [place] level, QRS duration, QTC intervals are within normal range. Old EKG for comparison is from September 25 2016. - Transfer of Care Notes: 10/22/16 07:18 Patient continues to have hypoxemia when I turn off the supplemental oxygen. I felt appropriate therefore admit her for COPD exacerbation. Her CO2 level is higher than her baseline. She is awake and alert and neurologically appropriate. Her lung rojas are improved on auscultation however she still has some diminishment overall when it comes to her air movement. Wheezing is much improved. I did speak with Dr. Astudillo, patient's private care physician, who agrees to admit the patient for further treatment. He requests I do give the patient a dose of antibiotic. Dictation of this chart was performed using voice recognition software; therefore, there may be some unintended grammatical errors. Discharge - Discharge Clinical Impression: COPD (chronic obstructive pulmonary disease) Qualifiers: COPD type: unspecified COPD Qualified Code(s): J44.9 - Chronic obstructive pulmonary disease, unspecified Condition: Stable Disposition: ADMITTED INPATIENT Admitting Provider: Mehdi Unit Admitted: [facility] Referrals: ANU ASTUDILLO MD [Primary Care Provider] - Follow up as needed
[2016-10-22 03:02] LABS: ABSOLUTE EOSINOPHILS # (AUTO) 0.3 10^3/uL (0.0-0.6); ABSOLUTE LYMPHOCYTES (AUTO) 0.6 10^3/uL (0.5-4.7); ABSOLUTE NEUT (AUTO) 8.9 10^3/uL (1.7-8.2); BASOPHILS % (AUTO) 0.4 % (0-2); HEMATOCRIT 39.9 % (36.0-47.0); HEMOGLOBIN 12.9 g/dL (12.0-15.5); HGB HCT DIFFERENCE -1.2; LYMPHOCYTES % (AUTO) 5.1 % (13-45); MEAN CORPUSCULAR HEMOGLOBIN 28.2 pg (27.0-33.4); MEAN CORPUSCULAR HGB CONC 32.4 g/dL (32.0-36.0); MEAN CORPUSCULAR VOLUME 87 fl (80-97); MONOCYTES % (AUTO) 9.1 % (3-13); RED BLOOD COUNT 4.58 10^6/uL (3.72-5.28); RED CELL DISTRIBUTION WIDTH 14.5 % (11.5-14.0); SEGMENTED NEUTROPHILS % (AUTO) 82.4 % (42-78); WHITE BLOOD COUNT 10.8 10^3/uL (4.0-10.5)
[2016-10-22] MEDS: MAGNESIUM SULFATE/D5W 100 ML IV SCH ×2 (03:02→04:03)
[2016-10-22 04:47] LABS: VENOUS BLOOD BASE EXCESS 6.4 mmol/L; VENOUS BLOOD HCO3 35.8 mmol/L (20-32); VENOUS BLOOD PH 7.3 (7.30-7.42)
[2016-10-22 04:51] LABS: VENOUS BLOOD PCO2 74.8 mmHg (35-63)
[2016-10-22 05:00] LABS: ANION GAP 10 (5-19); BLOOD UREA NITROGEN 24 mg/dL (7-20); CALCIUM 9.4 mg/dL (8.4-10.2); CARBON DIOXIDE 33 mmol/L (22-30); CHLORIDE 98 mmol/L (98-107); CREATININE RESULT 1.28 mg/dL (0.52-1.25); GLUCOSE 151 mg/dL (75-110); POTASSIUM 4.5 mmol/L (3.6-5.0); SODIUM 140.8 mmol/L (137-145)
[2016-10-22] MEDS ORDERED: LEVOFLOXACIN 750 MG/D5W RTU 150 ML IV ONE (07:13)
[2016-10-22] MEDS ORDERED: ZOLPIDEM TARTRATE 5 MG TABLET PO PRN (09:00)
[2016-10-22] MEDS ORDERED: ACETAMINOPHEN 650 MG SUPP.RECT PR PRN (09:00)
[2016-10-22] MEDS ORDERED: DOCUSATE SODIUM 100 MG CAPSULE PO PRN (09:00)
--- NOTE | 2016-10-22 09:09 | EKG REPORT ---
SEVERITY:- ABNORMAL ECG - SINUS RHYTHM LEFT AXIS DEVIATION LVH WITH SECONDARY REPOLARIZATION ABNORMALITY : Confirmed by: Jameson Engel MD 22-Oct-2016 09:08:48
[2016-10-22] MEDS ORDERED: METHYLPREDNISOLONE INJ 40 MG/1 ML SDV IV SCH (09:15)
[2016-10-22] MEDS ORDERED: GLUCAGON,HUMAN RECOMB 1 MG INJ IM PRN (10:11)
[2016-10-22] MEDS ORDERED: DEXTROSE 40% GEL 15 GM TUBE PO PRN (10:11)
[2016-10-22] MEDS ORDERED: DEXTROSE 50%-WATER SYRINGE 25 GM/50 ML DOSE IV PRN (10:11)
[2016-10-22] MEDS ORDERED: DEXTROSE 40% GEL 15 GM TUBE X 2 PO PRN (10:11)
[2016-10-22] MEDS ORDERED: DEXTROSE 50%-WATER SYRINGE 12.5 GM/25 ML DOSE IV PRN (10:11)
[2016-10-22] MEDS ORDERED: ENOXAPARIN SODIUM INJ 40 MG/0.4 ML DISP.SYRIN SUBCUT ONE (10:30)
[2016-10-22] MEDS ORDERED: INSULIN LISPRO 100 UNIT/ML 3 ML VIAL SUBCUT PRN (11:00)
[2016-10-22] MEDS ORDERED: METHYLPREDNISOLONE INJ 125 MG/2 ML SDV IV SCH (12:00)
[2016-10-22] MEDS: ASPIRIN 81 MG TABLET, CHEWABLE PO SCH (13:09)
[2016-10-22] MEDS: GABAPENTIN 300 MG CAPSULE PO SCH ×2 (13:10→22:16)
[2016-10-22] MEDS: PAROXETINE HCL 20 MG TABLET PO SCH (13:10)
[2016-10-22] MEDS: LOSARTAN POTASSIUM 50 MG TABLET PO SCH (13:10)
[2016-10-22] MEDS: METOPROLOL TARTRATE 100 MG TABLET PO SCH ×2 (13:10→22:16)
[2016-10-22] MEDS: FUROSEMIDE 20 MG TABLET PO SCH (13:11)
[2016-10-22] MEDS: DIGOXIN 0.125 MG TABLET PO SCH (13:11)
[2016-10-22] MEDS: EZETIMIBE 10 MG TABLET PO SCH (13:11)
[2016-10-22] MEDS: CLOPIDOGREL BISULFATE 75 MG TABLET PO SCH (13:11)
[2016-10-22] MEDS: LEVALBUTEROL HCL NEB 1.25 MG/3 ML AMPUL NEB SCH ×2 (14:22→19:54)
--- NOTE | 2016-10-22 15:16 | PDOC H&P ---
History of Present Illness Admission Date/PCP: 10/22/16 09:00 ANU ASTUDILLO Patient complains of: Wheezing, dyspnea, cough, hypoxia. History of Present Illness: REI ROBLES is a 81 year old female with hx of DM2/HTN/Hyperlipidemia/CHF/COPD/ A-fib/CAD s.p NSTEMI/PAD s.p left leg bypass/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 She is being admitted for COPD exacerbation. Past Medical History Cardiac Medical History: Reports: Atrial Fibrillation, Coronary Artery Disease, Hypertension Pulmonary Medical History: Reports: Chronic Obstructive Pulmonary Disease (COPD ) - On record Endocrine Medical History: Reports: Diabetes Mellitus Type 1, Diabetes Mellitus Type 2 GI Medical History: Reports: Gastroesophageal Reflux Disease Psychiatric Medical History: Reports: Depression Past Surgical History Past Surgical History: Reports: Mastectomy - Right nephrectomy, Vascular Surgery - Right fem-pop bypass, Left vein harvesting Social History Smoking Status: Former Smoker Frequency of Alcohol Use: None Hx Recreational Drug Use: No Drugs: None Hx Prescription Drug Abuse: No Family History Family History: CAD, DM Parental Family History Reviewed: Yes Children Family History Reviewed: Yes Sibling(s) Family History Reviewed.: Yes Medication/Allergy Home Medications: Acetaminophen [Tylenol Extra Strength 500 mg Tablet] 500 mg PO BIDP PRN Albuterol Sulfate [Ventolin HFA MDI 18 GM] 1 puff IH Q6HP PRN 10/22/16 Aspirin [Ecotrin 81 mg EC Tablet] 81 mg PO DAILY 10/22/16 Clopidogrel Bisulfate [Plavix 75 mg Tablet] 75 mg PO DAILY 10/22/16 Digoxin [Lanoxin 0.125 mg Tablet] 0.125 mg PO DAILY 10/22/16 Ergocalciferol (Vitamin D2) [Drisdol 50,000 unit (1.25MG) Capsule] 50,000 unit PO TH@1000 10/22/16 Ezetimibe [Zetia 10 mg Tablet] 10 mg PO DAILY 10/22/16 Fluticasone Propionate [Flonase Nasal Rupert 50 Mcg/Rupert 16 gm] 2 spray NASL DAILY 10/22/16 Furosemide [Lasix] 20 mg PO DAILY 10/22/16 Gabapentin [Neurontin 300 mg Capsule] 300 mg PO BID@0800,1600 10/22/16 Gabapentin [Neurontin] 600 mg PO QHS 10/22/16 Insulin Aspart [Novolog Insulin (Aspart) 100 unit/mL] 0 units SQ .PERSLIDINGSCALE 10/22/16 Insulin Glargine,Hum.rec.anlog [Lantus] 50 units SQ [id number] 10/22/16 Isosorbide Mononitrate [Imdur 30 mg Tablet.er] 90 mg PO DAILY 10/22/16 Meclizine HCl [Antivert 25 mg Tablet] 25 mg PO TIDP PRN 10/22/16 Metoprolol Tartrate [Lopressor 100 mg Tablet] 100 mg PO Q12 10/22/16 Paroxetine HCl [Paxil] 40 mg PO DAILY 10/22/16 Polyethylene Glycol 3350 [Miralax Powder 17 gm/Packet] 17 gm PO DAILYP PRN 10/22 Trazodone HCl [Desyrel] 100 mg PO QHS 10/22/16 Vit A/Vit C/Vit E/Zinc/Copper [Preservision Areds Softgel] 1 each PO BID Allergies/Adverse Reactions: No Known Allergies Allergy (Verified 09/25/16 20:26) Review of Systems All systems: as per PMH Constitutional: PRESENT: as per HPI Eyes: PRESENT: as per HPI Ears: PRESENT: as per HPI Nose, Mouth, and Throat: PRESENT: as per HPI Cardiovascular: PRESENT: dyspnea on exertion Respiratory: PRESENT: cough, dyspnea - wheezes Gastrointestinal: PRESENT: as per HPI Genitourinary: PRESENT: as per HPI Musculoskeletal: PRESENT: as per HPI Integumentary: PRESENT: as per HPI Neurological: PRESENT: as per HPI Psychiatric: PRESENT: as per HPI Hematologic/Lymphatic: PRESENT: as per HPI Physical Exam Vital Signs: Temp Pulse Resp BP Pulse Ox 98.6 F 75 20 131/48 H 95 10/22/16 07:42 10/22/16 14:22 10/22/16 14:22 10/22/16 09:00 10/22/16 14:22 Intake & Output 10/21/16 10/22/16 10/23/16 06:59 06:59 06:59 Intake Total 600 Balance 600 General appearance: PRESENT: cooperative, mild distress, well-developed, well- nourished Head exam: PRESENT: atraumatic, normocephalic Eye exam: PRESENT: EOMI, PERRLA Ear exam: PRESENT: normal external ear exam, TM's normal bilaterally Mouth exam: PRESENT: moist, neck supple Respiratory exam: PRESENT: decreased breath sounds, rhonchi, wheezes Cardiovascular exam: PRESENT: irregular rhythm, +S1, +S2 GI/Abdominal exam: PRESENT: normal bowel sounds, soft Rectal exam: PRESENT: deferred Neurological exam: PRESENT: awake, oriented to person, oriented to place, oriented to time - right hemiparesis and wheel chair bound. Psychiatric exam: PRESENT: normal mood Results Impressions: Chest X-Ray 10/22/16 02:40 IMPRESSION: No acute cardiopulmonary findings. Please also see abnormal CT chest report from August 2016 ; CT correlation may be warranted in November 2016. Assessment & Plan - Diagnosis (1) COPD exacerbation Is this a current diagnosis for this admission?: YesPlan: Ct with oxygen by N/C at 2 L/min to keep saturation>92%; Solumedrol 80 mg q6h IV ; Duonebs q4h prn; Xopenex nebs q6h; Levaquin 500 mg qd IV. (2) Diabetes mellitus type 2, controlled, without complications Qualifiers: Diabetes mellitus care home insulin use: with care home use Qualified Code(s): E11.9 - Type 2 diabetes mellitus without complications Is this a current diagnosis for this admission?: YesPlan: Ct with Lantus 65 iu qhs subcut; slidding scale with humalog insulin, [facility] protocol; 1800 calorie ADA diet; f/u HBA1C result. (3) HTN (hypertension) Qualifiers: Hypertension type: essential hypertension Qualified Code(s): I10 - Essential (primary) hypertension Is this a current diagnosis for this admission?: YesPlan: Ct with Losartan 50 mg qd po; Metoprolol 100 mg BID po; 2 g sodium diet. (4) Hyperlipidemia Is this a current diagnosis for this admission?: YesPlan: Ct with Zetia 10 mg qd po; 200 mg cholesterol diet. (5) Congestive heart failure Qualifiers: Congestive heart failure type: unspecified congestive heart failure type Congestive heart failure chronicity: chronic Qualified Code(s): I50.9 - Heart failure, unspecified Is this a current diagnosis for this admission?: YesPlan: Ct with Lasix 20 mg qd po; strict input/output chart; daily wt; monitor chemistry daily. (6) Atrial fibrillation Qualifiers: Atrial fibrillation type: paroxysmal Qualified Code(s): I48.0 - Paroxysmal atrial fibrillation Is this a current diagnosis for this admission?: YesPlan: Ct with Digoxin 0.125 mg qd po; Metoprolol 100 mg BID po. (7) NSTEMI (non-ST elevated myocardial infarction) Is this a current diagnosis for this admission?: YesPlan: Ct with Plavix 75 mg qd po; ASA 81 mg qd po. (8) Cerebral vascular disease Is this a current diagnosis for this admission?: YesPlan: Ct with ASA 81 mg qd po; Plavix 75 mg qd po. (9) PAD (peripheral artery disease) Is this a current diagnosis for this admission?: YesPlan: Ct with ASA 81 mg qd po; Plavix 75 mg qd po. (10) Diabetic neuropathy Is this a current diagnosis for this admission?: YesPlan: Ct with Gabapentin 300 mg BID po. (11) GERD (gastroesophageal reflux disease) Qualifiers: Esophagitis presence: without esophagitis Qualified Code(s): K21.9 - Gastro-esophageal reflux disease without esophagitis Is this a current diagnosis for this admission?: YesPlan: Ct with Prevacid 30 mg qd po since we do not have Protonix po in our formulary. (12) Constipation Is this a current diagnosis for this admission?: YesPlan: Ct with Colace 100 mg qd po prn (13) Depression Qualifiers: Depression Type: unspecified Qualified Code(s): F32.9 - Major depressive disorder, single episode, unspecified Is this a current diagnosis for this admission?: YesPlan: Ct with Paxil 40 mg qd po; Trazodone 50 mg qhs po. (14) DVT prophylaxis Is this a current diagnosis for this admission?: YesPlan: Ct with Lovenox 40 mg qd subcut; SCD. - Time Time Spent: 30 to 50 Minutes Medications reviewed and adjusted accordingly: Yes Anticipated discharge: Home, Home with Homehealth Within: within 72 hours - Inpatient Certification Medical Necessity: Failure to Improve With Outpatient Therapy, Significant Comorbidiites Make Outpatient Treatment Too Risky, Need Close Monitoring Due to Risk of Patient Decompensation, Need for Nebulizer Therapy and Monitoring of Response, Need for IV Antibiotics, Risk of Diagnosis Which Will Require Inpatient Eval/Care/Monitoring
[2016-10-22] MEDS: LANSOPRAZOLE 30 MG TAB.RAP.DR PO SCH (16:22)
[2016-10-22] MEDS: METHYLPREDNISOLONE INJ 125 MG/2 ML SDV IV SCH ×2 (18:04→23:12)
[2016-10-22] MEDS: TRAZODONE HCL 50 MG TABLET PO SCH (22:16)
[2016-10-22] MEDS: INSULIN GLARGINE,HUM.REC.ANLOG 1,000 UNIT/10 ML UNIT SUBCUT SCH (23:11)
[2016-10-22] MEDS: INSULIN LISPRO 100 UNIT/ML 3 ML VIAL SUBCUT PRN (23:12)
[2016-10-23] MEDS: LEVALBUTEROL HCL NEB 1.25 MG/3 ML AMPUL NEB SCH ×4 (01:56→20:11)
[2016-10-23 04:51] LABS: ALANINE AMINOTRANSFERASE 28 U/L (9-52); ALBUMIN 3.8 g/dL (3.5-5.0); ALKALINE PHOSPHATASE 87 U/L (38-126); ANION GAP 13 (5-19); ASPARTATE AMINO TRANSFERASE 21 U/L (14-36); BILIRUBIN,TOTAL 0.5 mg/dL (0.2-1.3); BLOOD UREA NITROGEN 31 mg/dL (7-20); CALCIUM 9.8 mg/dL (8.4-10.2); CARBON DIOXIDE 27 mmol/L (22-30); CHLORIDE 96 mmol/L (98-107); CHOLESTEROL 167.01 mg/dL (0-200); Direct HDL 37 mg/dL (>40); GLUCOSE 259 mg/dL (75-110); SODIUM 136.1 mmol/L (137-145); TOTAL PROTEIN 6.7 g/dL (6.3-8.2); TRIGLYCERIDES 110 mg/dL (<150)
[2016-10-23 05:03] LABS: DIRECT LDL 108 mg/dL (<100)
[2016-10-23] MEDS: LANSOPRAZOLE 30 MG TAB.RAP.DR PO SCH ×2 (05:09→17:03)
[2016-10-23] MEDS: METHYLPREDNISOLONE INJ 125 MG/2 ML SDV IV SCH ×4 (05:09→23:45)
[2016-10-23 06:01] LABS: HEMATOCRIT 40.9 % (36.0-47.0); HEMOGLOBIN 13.2 g/dL (12.0-15.5); HGB HCT DIFFERENCE -1.3; MEAN CORPUSCULAR HEMOGLOBIN 28.2 pg (27.0-33.4); MEAN CORPUSCULAR HGB CONC 32.4 g/dL (32.0-36.0); MEAN CORPUSCULAR VOLUME 87 fl (80-97); RED CELL DISTRIBUTION WIDTH 14.7 % (11.5-14.0); WHITE BLOOD COUNT 11.4 10^3/uL (4.0-10.5)
[2016-10-23 06:48] LABS: BASOPHILS % (MANUAL) 0 % (0-2); EOSINOPHILS % (MANUAL) 0 % (0-6); LYMPHOCYTES % (MANUAL) 3 % (13-45); TOTAL CELLS COUNTED 100
[2016-10-23 06:49] LABS: ANISOCYTOSIS SLIGHT; OVALOCYTES SLIGHT
[2016-10-23 06:50] LABS: PLATELET CLUMPS PRESENT
--- NOTE | 2016-10-23 11:43 | PDOC PROGRESS REPORT ---
Subjective Progress Note for:: 10/23/16 Subjective:: She reports she is feeling less short of breath. Physical Exam Vital Signs: Temp Pulse Resp BP Pulse Ox 97.3 F 70 16 186/62 H 96 10/23/16 07:40 10/23/16 08:30 10/23/16 08:30 10/23/16 07:40 10/23/16 08:30 Intake & Output 10/22/16 10/23/16 10/24/16 06:59 06:59 06:59 Intake Total 1220 Balance 1220 Weight 82 kg General appearance: PRESENT: no acute distress Eye exam: PRESENT: conjunctiva pink. ABSENT: scleral icterus Mouth exam: PRESENT: moist, tongue midline Neck exam: ABSENT: JVD Respiratory exam: PRESENT: wheezes - Scattered expiratory wheezes bilaterally.. ABSENT: rales, rhonchi Cardiovascular exam: PRESENT: RRR. ABSENT: diastolic murmur, rubs, systolic murmur GI/Abdominal exam: PRESENT: normal bowel sounds, soft. ABSENT: distended, guarding, mass, organolmegaly, rebound, tenderness Extremities exam: ABSENT: calf tenderness, clubbing, pedal edema Neurological exam: PRESENT: alert, awake, oriented to person, oriented to place , oriented to time, oriented to situation, motor sensory deficit - Patient has decreased strength on the right side. Psychiatric exam: PRESENT: appropriate affect Skin exam: PRESENT: dry, intact, warm. ABSENT: cyanosis, rash Results Laboratory Results: 10/23/16 05:43 10/23/16 03:39 10/23/16 10/23/16 10/23/16 03:39 03:45 03:45 WBC Cancelled RBC Cancelled Hgb Cancelled Hct Cancelled MCV Cancelled MCH Cancelled MCHC Cancelled RDW Cancelled Plt Count Cancelled Seg Neutrophils % Cancelled Lymphocytes % Cancelled Monocytes % Cancelled Eosinophils % Cancelled Basophils % Cancelled Absolute Neutrophils Cancelled Absolute Lymphocytes Cancelled Absolute Monocytes Cancelled Absolute Eosinophils Cancelled Absolute Basophils Cancelled Sodium 136.1 L Potassium 5.0 Chloride 96 L Carbon Dioxide 27 Anion Gap 13 BUN 31 H Creatinine 1.10 Est GFR ( Amer) 58 L Est GFR (Non-Af Amer) 48 L Glucose 259 H Calcium 9.8 Total Bilirubin 0.5 AST 21 ALT 28 Alkaline Phosphatase 87 Total Protein 6.7 Albumin 3.8 Triglycerides 110 Cholesterol 167.01 LDL Cholesterol Direct 108 H VLDL Cholesterol 22.0 HDL Cholesterol 37 L TSH 0.85 10/23/16 05:43 WBC 11.4 H RBC 4.70 Hgb 13.2 Hct 40.9 MCV 87 MCH 28.2 MCHC 32.4 RDW 14.7 H Plt Count 221 Seg Neutrophils % Not Reportable Lymphocytes % Not Reportable Monocytes % Not Reportable Eosinophils % Not Reportable Basophils % Not Reportable Absolute Neutrophils Not Reportable Absolute Lymphocytes Not Reportable Absolute Monocytes Not Reportable Absolute Eosinophils Not Reportable Absolute Basophils Not Reportable Sodium Potassium Chloride Carbon Dioxide Anion Gap BUN Creatinine Est GFR ( Amer) Est GFR (Non-Af Amer) Glucose Calcium Total Bilirubin AST ALT Alkaline Phosphatase Total Protein Albumin Triglycerides Cholesterol LDL Cholesterol Direct VLDL Cholesterol HDL Cholesterol TSH Impressions: Chest X-Ray 10/22/16 02:40 IMPRESSION: No acute cardiopulmonary findings. Please also see abnormal CT chest report from August 2016 ; CT correlation may be warranted in November 2016. Assessment & Plan - Diagnosis (1) COPD exacerbation Is this a current diagnosis for this admission?: YesPlan: The patient is improving on Solu-Medrol and Levaquin. (2) Congestive heart failure Qualifiers: Congestive heart failure type: unspecified congestive heart failure type Congestive heart failure chronicity: chronic Qualified Code(s): I50.9 - Heart failure, unspecified Is this a current diagnosis for this admission?: YesPlan: The patient appears to be euvolemic (3) Diabetic neuropathy Is this a current diagnosis for this admission?: YesPlan: Continue with gabapentin (4) HTN (hypertension) Qualifiers: Hypertension type: essential hypertension Qualified Code(s): I10 - Essential (primary) hypertension Is this a current diagnosis for this admission?: YesPlan: Continue Cozaar, metoprolol, Lasix. (5) Hyperlipidemia Is this a current diagnosis for this admission?: YesPlan: Continue with zetia (6) Atrial fibrillation Qualifiers: Atrial fibrillation type: paroxysmal Qualified Code(s): I48.0 - Paroxysmal atrial fibrillation Is this a current diagnosis for this admission?: YesPlan: Continue metoprolol and digoxin. (7) GERD (gastroesophageal reflux disease) Qualifiers: Esophagitis presence: without esophagitis Qualified Code(s): K21.9 - Gastro-esophageal reflux disease without esophagitis Is this a current diagnosis for this admission?: YesPlan: Asymptomatic - Time Time Spent with patient: 25-34 minutes - Inpatient Certification Medical Necessity: Need Close Monitoring Due to Risk of Patient Decompensation
[2016-10-23] MEDS: LEVOFLOXACIN 500 MG/D5W RTU 500 MG/100 ML RTUPB IV SCH (11:49)
[2016-10-23] MEDS: DIGOXIN 0.125 MG TABLET PO SCH (11:56)
[2016-10-23] MEDS: ASPIRIN 81 MG TABLET, CHEWABLE PO SCH (11:56)
[2016-10-23] MEDS: FUROSEMIDE 20 MG TABLET PO SCH (11:56)
[2016-10-23] MEDS: CLOPIDOGREL BISULFATE 75 MG TABLET PO SCH (11:56)
[2016-10-23] MEDS: GABAPENTIN 300 MG CAPSULE PO SCH ×2 (11:56→21:52)
[2016-10-23] MEDS: PAROXETINE HCL 20 MG TABLET PO SCH (11:57)
[2016-10-23] MEDS: EZETIMIBE 10 MG TABLET PO SCH (11:57)
[2016-10-23] MEDS: METOPROLOL TARTRATE 100 MG TABLET PO SCH ×2 (11:57→21:52)
[2016-10-23] MEDS: ENOXAPARIN SODIUM INJ 40 MG/0.4 ML DISP.SYRIN SUBCUT SCH (11:58)
[2016-10-23] MEDS: LOSARTAN POTASSIUM 50 MG TABLET PO SCH (11:58)
[2016-10-23] MEDS: INSULIN LISPRO 100 UNIT/ML 3 ML VIAL SUBCUT PRN ×3 (12:00→22:48)
[2016-10-23] MEDS: ACETAMINOPHEN 325 MG TABLET PO PRN (15:51)
[2016-10-23] MEDS: TRAZODONE HCL 50 MG TABLET PO SCH (21:52)
[2016-10-23] MEDS: INSULIN GLARGINE,HUM.REC.ANLOG 1,000 UNIT/10 ML UNIT SUBCUT SCH (22:48)
[2016-10-24] MEDS: LEVALBUTEROL HCL NEB 1.25 MG/3 ML AMPUL NEB SCH ×4 (02:14→19:51)
[2016-10-24 04:46] LABS: HEMATOCRIT 39.4 % (36.0-47.0); HEMOGLOBIN 12.7 g/dL (12.0-15.5); HGB HCT DIFFERENCE -1.3; MEAN CORPUSCULAR HEMOGLOBIN 28.1 pg (27.0-33.4); MEAN CORPUSCULAR HGB CONC 32.2 g/dL (32.0-36.0); MEAN CORPUSCULAR VOLUME 87 fl (80-97); RED BLOOD COUNT 4.52 10^6/uL (3.72-5.28); RED CELL DISTRIBUTION WIDTH 14.9 % (11.5-14.0)
[2016-10-24 05:08] LABS: ALANINE AMINOTRANSFERASE 31 U/L (9-52); ALBUMIN 3.6 g/dL (3.5-5.0); ALKALINE PHOSPHATASE 84 U/L (38-126); ANION GAP 12 (5-19); ASPARTATE AMINO TRANSFERASE 20 U/L (14-36); BILIRUBIN,TOTAL 0.4 mg/dL (0.2-1.3); BLOOD UREA NITROGEN 35 mg/dL (7-20); CALCIUM 9.5 mg/dL (8.4-10.2); CARBON DIOXIDE 30 mmol/L (22-30); CHLORIDE 95 mmol/L (98-107); GLUCOSE 228 mg/dL (75-110); POTASSIUM 4.9 mmol/L (3.6-5.0); SODIUM 136.8 mmol/L (137-145); TOTAL PROTEIN 6.4 g/dL (6.3-8.2)
[2016-10-24] MEDS: LANSOPRAZOLE 30 MG TAB.RAP.DR PO SCH ×2 (05:16→16:53)
[2016-10-24] MEDS: METHYLPREDNISOLONE INJ 125 MG/2 ML SDV IV SCH (05:16)
[2016-10-24 05:27] LABS: ANISOCYTOSIS SLIGHT; BASOPHILS % (MANUAL) 0 % (0-2); EOSINOPHILS % (MANUAL) 0 % (0-6); LYMPHOCYTES % (MANUAL) 3 % (13-45); TOTAL CELLS COUNTED 100; TOXIC GRANULATION SLIGHT
[2016-10-24] MEDS: INSULIN LISPRO 100 UNIT/ML 3 ML VIAL SUBCUT PRN ×4 (08:05→22:09)
[2016-10-24] MEDS: ENOXAPARIN SODIUM INJ 40 MG/0.4 ML DISP.SYRIN SUBCUT SCH (08:09)
[2016-10-24] MEDS: EZETIMIBE 10 MG TABLET PO SCH (10:19)
[2016-10-24] MEDS: LOSARTAN POTASSIUM 50 MG TABLET PO SCH (10:20)
[2016-10-24] MEDS: GABAPENTIN 300 MG CAPSULE PO SCH ×2 (10:20→21:41)
[2016-10-24] MEDS: ASPIRIN 81 MG TABLET, CHEWABLE PO SCH (10:20)
[2016-10-24] MEDS: FUROSEMIDE 20 MG TABLET PO SCH (10:21)
[2016-10-24] MEDS: DIGOXIN 0.125 MG TABLET PO SCH (10:21)
[2016-10-24] MEDS: METOPROLOL TARTRATE 100 MG TABLET PO SCH ×2 (10:21→21:41)
[2016-10-24] MEDS: PAROXETINE HCL 20 MG TABLET PO SCH (10:21)
[2016-10-24] MEDS: LEVOFLOXACIN 500 MG/D5W RTU 500 MG/100 ML RTUPB IV SCH (10:22)
[2016-10-24] MEDS: CLOPIDOGREL BISULFATE 75 MG TABLET PO SCH (10:23)
--- NOTE | 2016-10-24 11:54 | PDOC PROGRESS REPORT ---
Subjective Progress Note for:: 10/24/16 Subjective:: Denies any complaints Physical Exam Vital Signs: Temp Pulse Resp BP Pulse Ox 98.0 F 74 18 180/63 H 96 10/24/16 07:44 10/24/16 08:17 10/24/16 08:17 10/24/16 07:44 10/24/16 08:17 Intake & Output 10/23/16 10/24/16 10/25/16 06:59 06:59 06:59 Intake Total 1220 720 Balance 1220 720 Weight 82 kg 81.4 kg General appearance: PRESENT: no acute distress Eye exam: PRESENT: conjunctiva pink. ABSENT: scleral icterus Ear exam: PRESENT: normal external ear exam Neck exam: ABSENT: JVD Respiratory exam: PRESENT: clear to auscultation [place]. ABSENT: rales, rhonchi, wheezes Cardiovascular exam: PRESENT: RRR. ABSENT: diastolic murmur, rubs, systolic murmur GI/Abdominal exam: PRESENT: normal bowel sounds, soft. ABSENT: distended, guarding, mass, organolmegaly, rebound, tenderness Extremities exam: PRESENT: full ROM. ABSENT: calf tenderness, clubbing, pedal edema Neurological exam: PRESENT: alert, awake, oriented to person, oriented to place , oriented to time, other - Right-sided weakness Psychiatric exam: PRESENT: appropriate affect Skin exam: PRESENT: dry, intact, warm. ABSENT: cyanosis, rash Results Laboratory Results: 10/24/16 04:07 10/24/16 04:07 10/24/16 10/24/16 04:07 04:07 WBC 14.0 H RBC 4.52 Hgb 12.7 Hct 39.4 MCV 87 MCH 28.1 MCHC 32.2 RDW 14.9 H Plt Count 229 Seg Neutrophils % Not Reportable Lymphocytes % Not Reportable Monocytes % Not Reportable Eosinophils % Not Reportable Basophils % Not Reportable Absolute Neutrophils Not Reportable Absolute Lymphocytes Not Reportable Absolute Monocytes Not Reportable Absolute Eosinophils Not Reportable Absolute Basophils Not Reportable Sodium 136.8 L Potassium 4.9 Chloride 95 L Carbon Dioxide 30 Anion Gap 12 BUN 35 H Creatinine 1.10 Est GFR ( Amer) 58 L Est GFR (Non-Af Amer) 48 L Glucose 228 H Calcium 9.5 Total Bilirubin 0.4 AST 20 ALT 31 Alkaline Phosphatase 84 Total Protein 6.4 Albumin 3.6 Impressions: Chest X-Ray 10/22/16 02:40 IMPRESSION: No acute cardiopulmonary findings. Please also see abnormal CT chest report from August 2016 ; CT correlation may be warranted in November 2016. Assessment & Plan - Diagnosis (1) COPD exacerbation Is this a current diagnosis for this admission?: YesPlan: The patient is improving on steroids and Levaquin. Will DC the Solu-Medrol and change to prednisone. Hopefully she'll be able to be discharged home in the morning. (2) Congestive heart failure Qualifiers: Congestive heart failure type: unspecified congestive heart failure type Congestive heart failure chronicity: chronic Qualified Code(s): I50.9 - Heart failure, unspecified Is this a current diagnosis for this admission?: YesPlan: The patient appears to be euvolemic (3) Diabetic neuropathy Is this a current diagnosis for this admission?: YesPlan: Continue with gabapentin (4) HTN (hypertension) Qualifiers: Hypertension type: essential hypertension Qualified Code(s): I10 - Essential (primary) hypertension Is this a current diagnosis for this admission?: YesPlan: Continue Cozaar, metoprolol, Lasix. (5) Hyperlipidemia Is this a current diagnosis for this admission?: YesPlan: Continue with zetia (6) Atrial fibrillation Qualifiers: Atrial fibrillation type: paroxysmal Qualified Code(s): I48.0 - Paroxysmal atrial fibrillation Is this a current diagnosis for this admission?: YesPlan: Continue metoprolol and digoxin. (7) GERD (gastroesophageal reflux disease) Qualifiers: Esophagitis presence: without esophagitis Qualified Code(s): K21.9 - Gastro-esophageal reflux disease without esophagitis Is this a current diagnosis for this admission?: YesPlan: Asymptomatic - Time Time Spent with patient: 25-34 minutes - Inpatient Certification Medical Necessity: Need Close Monitoring Due to Risk of Patient Decompensation
[2016-10-24] MEDS: TRAZODONE HCL 50 MG TABLET PO SCH (21:41)
[2016-10-24] MEDS: INSULIN GLARGINE,HUM.REC.ANLOG 1,000 UNIT/10 ML UNIT SUBCUT SCH (22:09)
[2016-10-24] MEDS ORDERED: LORAZEPAM INJ 2 MG/1 ML VIAL IV ONE (23:43)
[2016-10-24] MEDS ORDERED: HYDRALAZINE HCL INJ/PF 20 MG/1 ML SDV IV PRN (23:43)
[2016-10-24 23:57] LABS: ARTERIAL BLOOD BASE EXCESS 5.1 mmol/L; ARTERIAL BLOOD O2 SATURATION 97.7 % (94-98)
[2016-10-25] MEDS: IPRATROPIUM/ALBUTEROL 0.5-2.5 MG/3 ML AMPUL NEB PRN ×2 (00:06→11:19)
[2016-10-25] MEDS: LEVALBUTEROL HCL NEB 1.25 MG/3 ML AMPUL NEB SCH ×4 (01:46→19:51)
[2016-10-25 04:26] LABS: HEMATOCRIT 38.8 % (36.0-47.0); HEMOGLOBIN 12.6 g/dL (12.0-15.5); MEAN CORPUSCULAR HEMOGLOBIN 28.4 pg (27.0-33.4); MEAN CORPUSCULAR HGB CONC 32.5 g/dL (32.0-36.0); MEAN CORPUSCULAR VOLUME 87 fl (80-97); RED BLOOD COUNT 4.44 10^6/uL (3.72-5.28); RED CELL DISTRIBUTION WIDTH 14.8 % (11.5-14.0); WHITE BLOOD COUNT 13.7 10^3/uL (4.0-10.5)
[2016-10-25 04:36] LABS: ALANINE AMINOTRANSFERASE 33 U/L (9-52); ALBUMIN 3.3 g/dL (3.5-5.0); ALKALINE PHOSPHATASE 73 U/L (38-126); ANION GAP 10 (5-19); ASPARTATE AMINO TRANSFERASE 29 U/L (14-36); BILIRUBIN,TOTAL 0.5 mg/dL (0.2-1.3); BLOOD UREA NITROGEN 33 mg/dL (7-20); CALCIUM 9.2 mg/dL (8.4-10.2); CARBON DIOXIDE 30 mmol/L (22-30); CHLORIDE 99 mmol/L (98-107); CREATININE RESULT 0.93 mg/dL (0.52-1.25); GLUCOSE 55 mg/dL (75-110); POTASSIUM 4.3 mmol/L (3.6-5.0); SODIUM 139.2 mmol/L (137-145); TOTAL PROTEIN 5.6 g/dL (6.3-8.2)
[2016-10-25 05:25] LABS: BASOPHILS % (MANUAL) 0 % (0-2); EOSINOPHILS % (MANUAL) 0 % (0-6); LYMPHOCYTES % (MANUAL) 2 % (13-45); TOTAL CELLS COUNTED 100
[2016-10-25 05:29] LABS: TOXIC GRANULATION 1+
[2016-10-25 05:30] LABS: ANISOCYTOSIS SLIGHT; OVALOCYTES 1+; POIKILOCYTOSIS 1+
[2016-10-25] MEDS: LANSOPRAZOLE 30 MG TAB.RAP.DR PO SCH ×2 (05:31→17:15)
[2016-10-25] MEDS: ENOXAPARIN SODIUM INJ 40 MG/0.4 ML DISP.SYRIN SUBCUT SCH (08:10)
[2016-10-25] MEDS: PREDNISONE 20 MG TABLET PO SCH (10:15)
[2016-10-25] MEDS: PAROXETINE HCL 20 MG TABLET PO SCH (10:16)
[2016-10-25] MEDS: CLOPIDOGREL BISULFATE 75 MG TABLET PO SCH (10:16)
[2016-10-25] MEDS: DIGOXIN 0.125 MG TABLET PO SCH (10:16)
[2016-10-25] MEDS: GABAPENTIN 300 MG CAPSULE PO SCH ×2 (10:17→22:35)
[2016-10-25] MEDS: EZETIMIBE 10 MG TABLET PO SCH (10:17)
[2016-10-25] MEDS: ASPIRIN 81 MG TABLET, CHEWABLE PO SCH (10:17)
[2016-10-25] MEDS: METOPROLOL TARTRATE 100 MG TABLET PO SCH ×2 (10:17→22:34)
[2016-10-25] MEDS: LOSARTAN POTASSIUM 50 MG TABLET PO SCH (10:17)
[2016-10-25] MEDS: FUROSEMIDE 20 MG TABLET PO SCH (10:18)
[2016-10-25] MEDS: LEVOFLOXACIN 500 MG/D5W RTU 500 MG/100 ML RTUPB IV SCH (10:31)
[2016-10-25 11:14] LABS: ARTERIAL BLOOD BASE EXCESS 7.4 mmol/L
[2016-10-25 14:24] LABS: ARTERIAL BLOOD BASE EXCESS 8.1 mmol/L; ARTERIAL BLOOD O2 SATURATION 91.1 % (94-98)
[2016-10-25] MEDS: INSULIN LISPRO 100 UNIT/ML 3 ML VIAL SUBCUT PRN (17:17)
--- NOTE | 2016-10-25 17:54 | PDOC PROGRESS REPORT ---
Subjective Progress Note for:: 10/25/16 Subjective:: She was admitted for acute on chronic hypercapneic and hypoxic respiratory failure secondary to COPD exacerbation. She developed worsened hypercapnea with confusion last night and was put on BIPAP.He ABG this morning showed some improvement but she is still hypercapneic and confused, hence we we increased her BIPAP settings to 18/6 with FiO2 of 40 % and repeat ABG showed PCO2 of 64.5 which is close to her baseline. We will get pulmonary consult. Physical Exam Vital Signs: Temp Pulse Resp BP Pulse Ox 97.3 F 72 33 H 135/47 H 97 10/25/16 11:58 10/25/16 14:31 10/25/16 14:31 10/25/16 11:58 10/25/16 14:31 Intake & Output 10/24/16 10/25/16 10/26/16 06:59 06:59 06:59 Intake Total 720 1252 118 Balance 720 1252 118 Weight 81.4 kg 81.4 kg 81.4 kg General appearance: PRESENT: mild distress, well-developed, well-nourished Head exam: PRESENT: atraumatic Eye exam: PRESENT: EOMI, PERRLA Ear exam: PRESENT: normal external ear exam, TM's normal bilaterally Mouth exam: PRESENT: moist, neck supple Respiratory exam: PRESENT: decreased breath sounds, wheezes Cardiovascular exam: PRESENT: +S1, +S2 Pulses: PRESENT: +2 pedal pulses bilateral GI/Abdominal exam: PRESENT: normal bowel sounds, soft Rectal exam: PRESENT: deferred Neurological exam: PRESENT: alert, oriented to person, oriented to place, oriented to time Psychiatric exam: PRESENT: normal mood Results Laboratory Results: 10/25/16 03:55 10/25/16 03:55 10/24/16 10/25/16 10/25/16 23:45 03:55 03:55 WBC 13.7 H RBC 4.44 Hgb 12.6 Hct 38.8 MCV 87 MCH 28.4 MCHC 32.5 RDW 14.8 H Plt Count 209 Seg Neutrophils % Not Reportable Lymphocytes % Not Reportable Monocytes % Not Reportable Eosinophils % Not Reportable Basophils % Not Reportable Absolute Neutrophils Not Reportable Absolute Lymphocytes Not Reportable Absolute Monocytes Not Reportable Absolute Eosinophils Not Reportable Absolute Basophils Not Reportable Carbonic Acid 2.72 H HCO3/H2CO3 Ratio 13:1 ABG pH 7.22 L ABG pCO2 90.2 H* ABG pO2 126.7 H ABG HCO3 36.4 H ABG O2 Saturation 97.7 ABG Base Excess 5.1 FiO2 35% Sodium 139.2 Potassium 4.3 Chloride 99 Carbon Dioxide 30 Anion Gap 10 BUN 33 H Creatinine 0.93 Est GFR ( Amer) > 60 Est GFR (Non-Af Amer) 58 L Glucose 55 L Calcium 9.2 Total Bilirubin 0.5 AST 29 ALT 33 Alkaline Phosphatase 73 Total Protein 5.6 L Albumin 3.3 L 10/25/16 10/25/16 11:00 12:47 WBC RBC Hgb Hct MCV MCH MCHC RDW Plt Count Seg Neutrophils % Lymphocytes % Monocytes % Eosinophils % Basophils % Absolute Neutrophils Absolute Lymphocytes Absolute Monocytes Absolute Eosinophils Absolute Basophils Carbonic Acid 2.28 H 1.94 H HCO3/H2CO3 Ratio 16:1 18:1 ABG pH 7.30 L 7.36 ABG pCO2 75.9 H* 64.5 H ABG pO2 51.1 L 64.3 L ABG HCO3 36.8 H 35.8 H ABG O2 Saturation 81.0 L 91.1 L ABG Base Excess 7.4 8.1 FiO2 2L 35% Sodium Potassium Chloride Carbon Dioxide Anion Gap BUN Creatinine Est GFR ( Amer) Est GFR (Non-Af Amer) Glucose Calcium Total Bilirubin AST ALT Alkaline Phosphatase Total Protein Albumin Impressions: Chest X-Ray 10/22/16 02:40 IMPRESSION: No acute cardiopulmonary findings. Please also see abnormal CT chest report from August 2016 ; CT correlation may be warranted in November 2016. Assessment & Plan - Diagnosis (1) Acute hypercapnic respiratory failure Is this a current diagnosis for this admission?: YesPlan: Ct with BIPAP at IPAP of 18, EPAP of 6; FIO2 of 40 %; Duonebs q4h prn; Xopenex nebs q6h; Prednisone 60 mg qd po; f/u pulmonary consult. (2) COPD exacerbation Is this a current diagnosis for this admission?: YesPlan: Ct with oxygen by N/C at 2 L/min to keep saturation>92%; Prednisone 60 mg qd po ; Duonebs q4h prn; Xopenex nebs q6h; Levaquin 500 mg qd IV; Ct with BIPAP. (3) Diabetes mellitus type 2, controlled, without complications Qualifiers: Diabetes mellitus senior living insulin use: with rn long term care use Qualified Code(s): E11.9 - Type 2 diabetes mellitus without complications Is this a current diagnosis for this admission?: YesPlan: Ct with Lantus 65 iu qhs subcut; slidding scale with humalog insulin, [facility] protocol; 1800 calorie ADA diet; f/u HBA1C result. (4) HTN (hypertension) Qualifiers: Hypertension type: essential hypertension Qualified Code(s): I10 - Essential (primary) hypertension Is this a current diagnosis for this admission?: YesPlan: Ct with Losartan 50 mg qd po; Metoprolol 100 mg BID po; 2 g sodium diet. (5) Hyperlipidemia Is this a current diagnosis for this admission?: YesPlan: Ct with Zetia 10 mg qd po; 200 mg cholesterol diet. (6) Congestive heart failure Qualifiers: Congestive heart failure type: unspecified congestive heart failure type Congestive heart failure chronicity: chronic Qualified Code(s): I50.9 - Heart failure, unspecified Is this a current diagnosis for this admission?: YesPlan: Ct with Lasix 20 mg qd po; strict input/output chart; daily wt; monitor chemistry daily. (7) Atrial fibrillation Qualifiers: Atrial fibrillation type: paroxysmal Qualified Code(s): I48.0 - Paroxysmal atrial fibrillation Is this a current diagnosis for this admission?: YesPlan: Ct with Digoxin 0.125 mg qd po; Metoprolol 100 mg BID po. (8) NSTEMI (non-ST elevated myocardial infarction) Is this a current diagnosis for this admission?: YesPlan: Ct with Plavix 75 mg qd po; ASA 81 mg qd po. (9) Cerebral vascular disease Is this a current diagnosis for this admission?: YesPlan: Ct with ASA 81 mg qd po; Plavix 75 mg qd po. (10) PAD (peripheral artery disease) Is this a current diagnosis for this admission?: YesPlan: Ct with ASA 81 mg qd po; Plavix 75 mg qd po. (11) Diabetic neuropathy Is this a current diagnosis for this admission?: YesPlan: Ct with Gabapentin 300 mg BID po. (12) GERD (gastroesophageal reflux disease) Qualifiers: Esophagitis presence: without esophagitis Qualified Code(s): K21.9 - Gastro-esophageal reflux disease without esophagitis Is this a current diagnosis for this admission?: YesPlan: Ct with Prevacid 30 mg qd po since we do not have Protonix po in our formulary. (13) Constipation Is this a current diagnosis for this admission?: YesPlan: Ct with Colace 100 mg qd po prn (14) Depression Qualifiers: Depression Type: unspecified Qualified Code(s): F32.9 - Major depressive disorder, single episode, unspecified Is this a current diagnosis for this admission?: YesPlan: Ct with Paxil 40 mg qd po; Trazodone 50 mg qhs po. (15) DVT prophylaxis Is this a current diagnosis for this admission?: YesPlan: Ct with Lovenox 40 mg qd subcut; SCD.
[2016-10-25] MEDS: TRAZODONE HCL 50 MG TABLET PO SCH (22:34)
[2016-10-25] MEDS: INSULIN GLARGINE,HUM.REC.ANLOG 1,000 UNIT/10 ML UNIT SUBCUT SCH (22:35)
[2016-10-26] MEDS: LEVALBUTEROL HCL NEB 1.25 MG/3 ML AMPUL NEB SCH ×4 (02:18→19:48)
[2016-10-26 05:46] LABS: ABSOLUTE LYMPHOCYTES (AUTO) 0.7 10^3/uL (0.5-4.7); ABSOLUTE NEUT (AUTO) 4.8 10^3/uL (1.7-8.2); BASOPHILS % (AUTO) 0.1 % (0-2); HEMATOCRIT 40.2 % (36.0-47.0); HEMOGLOBIN 13.2 g/dL (12.0-15.5); HGB HCT DIFFERENCE -0.6; LYMPHOCYTES % (AUTO) 10.7 % (13-45); MEAN CORPUSCULAR HEMOGLOBIN 28.6 pg (27.0-33.4); MEAN CORPUSCULAR HGB CONC 32.8 g/dL (32.0-36.0); MEAN CORPUSCULAR VOLUME 87 fl (80-97); MONOCYTES % (AUTO) 15.7 % (3-13); RED BLOOD COUNT 4.61 10^6/uL (3.72-5.28); RED CELL DISTRIBUTION WIDTH 14.8 % (11.5-14.0); SEGMENTED NEUTROPHILS % (AUTO) 73.5 % (42-78); WHITE BLOOD COUNT 6.6 10^3/uL (4.0-10.5)
[2016-10-26 05:59] LABS: ALANINE AMINOTRANSFERASE 33 U/L (9-52); ALBUMIN 3.2 g/dL (3.5-5.0); ALKALINE PHOSPHATASE 67 U/L (38-126); ANION GAP 6 (5-19); ASPARTATE AMINO TRANSFERASE 34 U/L (14-36); BILIRUBIN,TOTAL 0.8 mg/dL (0.2-1.3); BLOOD UREA NITROGEN 32 mg/dL (7-20); CARBON DIOXIDE 37 mmol/L (22-30); CHLORIDE 98 mmol/L (98-107); CREATININE RESULT 0.98 mg/dL (0.52-1.25); GLUCOSE 87 mg/dL (75-110); POTASSIUM 3.8 mmol/L (3.6-5.0); SODIUM 141.1 mmol/L (137-145); TOTAL PROTEIN 6.1 g/dL (6.3-8.2)
[2016-10-26] MEDS: LANSOPRAZOLE 30 MG TAB.RAP.DR PO SCH ×2 (06:03→16:16)
[2016-10-26] MEDS: ENOXAPARIN SODIUM INJ 40 MG/0.4 ML DISP.SYRIN SUBCUT SCH (09:14)
[2016-10-26] MEDS: LOSARTAN POTASSIUM 50 MG TABLET PO SCH (09:15)
[2016-10-26] MEDS: PAROXETINE HCL 20 MG TABLET PO SCH (09:15)
[2016-10-26] MEDS: DIGOXIN 0.125 MG TABLET PO SCH (09:15)
[2016-10-26] MEDS: LEVOFLOXACIN 500 MG TABLET PO SCH (09:16)
[2016-10-26] MEDS: EZETIMIBE 10 MG TABLET PO SCH (09:16)
[2016-10-26] MEDS: ASPIRIN 81 MG TABLET, CHEWABLE PO SCH (09:16)
[2016-10-26] MEDS: PREDNISONE 20 MG TABLET PO SCH (09:16)
[2016-10-26] MEDS: FUROSEMIDE 20 MG TABLET PO SCH (09:17)
[2016-10-26] MEDS: GABAPENTIN 300 MG CAPSULE PO SCH ×2 (09:17→22:48)
[2016-10-26] MEDS: METOPROLOL TARTRATE 100 MG TABLET PO SCH ×2 (09:17→22:48)
[2016-10-26] MEDS: CLOPIDOGREL BISULFATE 75 MG TABLET PO SCH (09:17)
--- NOTE | 2016-10-26 13:01 | PDOC PROGRESS REPORT ---
Subjective Progress Note for:: 10/26/16 Subjective:: She was admitted for acute on chronic hypercapneic and hypoxic respiratory failure secondary to COPD exacerbation. She developed worsened hypercapnea with confusion last night and was put on BIPAP.He ABG this morning showed some improvement but she is still hypercapneic and confused, hence we we increased her BIPAP settings to 18/6 with FiO2 of 40 % and repeat ABG showed PCO2 of 64.5 which is close to her baseline. She was seen by child neurologist, Dr Martin today and he requested for CTA to rule out PE. Pt is still on BIPAP but she is much better clinically and no loger confused. Physical Exam Vital Signs: Temp Pulse Resp BP Pulse Ox 98.6 F 66 26 H 175/55 H 100 10/26/16 11:56 10/26/16 11:58 10/26/16 11:56 10/26/16 11:58 10/26/16 11:58 Intake & Output 10/25/16 10/26/16 10/27/16 06:59 06:59 06:59 Intake Total 1252 978 200 Balance 1252 978 200 Weight 81.4 kg 79.4 kg General appearance: PRESENT: mild distress, well-developed, well-nourished Head exam: PRESENT: atraumatic, normocephalic Eye exam: PRESENT: EOMI, PERRLA Ear exam: PRESENT: TM's normal bilaterally Mouth exam: PRESENT: moist, neck supple Respiratory exam: PRESENT: decreased breath sounds, wheezes Cardiovascular exam: PRESENT: +S1, +S2 Pulses: PRESENT: +2 pedal pulses bilateral GI/Abdominal exam: PRESENT: normal bowel sounds, soft Rectal exam: PRESENT: deferred Neurological exam: PRESENT: alert, oriented to person, oriented to place, oriented to time Psychiatric exam: PRESENT: normal mood Results Laboratory Results: 10/26/16 05:33 10/26/16 05:33 10/25/16 10/26/16 10/26/16 12:47 04:08 04:08 WBC Cancelled RBC Cancelled Hgb Cancelled Hct Cancelled MCV Cancelled MCH Cancelled MCHC Cancelled RDW Cancelled Plt Count Cancelled Seg Neutrophils % Cancelled Lymphocytes % Cancelled Monocytes % Cancelled Eosinophils % Cancelled Basophils % Cancelled Absolute Neutrophils Cancelled Absolute Lymphocytes Cancelled Absolute Monocytes Cancelled Absolute Eosinophils Cancelled Absolute Basophils Cancelled Carbonic Acid 1.94 H HCO3/H2CO3 Ratio 18:1 ABG pH 7.36 ABG pCO2 64.5 H ABG pO2 64.3 L ABG HCO3 35.8 H ABG O2 Saturation 91.1 L ABG Base Excess 8.1 FiO2 35% Sodium Cancelled Potassium Cancelled Chloride Cancelled Carbon Dioxide Cancelled Anion Gap Cancelled BUN Cancelled Creatinine Cancelled Est GFR ( Amer) Cancelled Est GFR (Non-Af Amer) Cancelled Glucose Cancelled Calcium Cancelled Total Bilirubin Cancelled AST Cancelled ALT Cancelled Alkaline Phosphatase Cancelled Total Protein Cancelled Albumin Cancelled 10/26/16 10/26/16 05:33 05:33 WBC 6.6 RBC 4.61 Hgb 13.2 Hct 40.2 MCV 87 MCH 28.6 MCHC 32.8 RDW 14.8 H Plt Count 170 Seg Neutrophils % 73.5 Lymphocytes % 10.7 L Monocytes % 15.7 H Eosinophils % 0.0 Basophils % 0.1 Absolute Neutrophils 4.8 Absolute Lymphocytes 0.7 Absolute Monocytes 1.0 Absolute Eosinophils 0.0 Absolute Basophils 0.0 Carbonic Acid HCO3/H2CO3 Ratio ABG pH ABG pCO2 ABG pO2 ABG HCO3 ABG O2 Saturation ABG Base Excess FiO2 Sodium 141.1 Potassium 3.8 Chloride 98 Carbon Dioxide 37 H Anion Gap 6 BUN 32 H Creatinine 0.98 Est GFR ( Amer) > 60 Est GFR (Non-Af Amer) 54 L Glucose 87 Calcium 9.0 Total Bilirubin 0.8 AST 34 ALT 33 Alkaline Phosphatase 67 Total Protein 6.1 L Albumin 3.2 L Assessment & Plan - Diagnosis (1) Acute hypercapnic respiratory failure Is this a current diagnosis for this admission?: YesPlan: Ct with BIPAP at IPAP of 18, EPAP of 6; FIO2 of 40 %; Duonebs q4h prn; Xopenex nebs q6h; Prednisone 60 mg qd po; f/u pulmonary consult. (2) COPD exacerbation Is this a current diagnosis for this admission?: YesPlan: Ct with oxygen by N/C at 2 L/min to keep saturation>92%; Prednisone 60 mg qd po ; Duonebs q4h prn; Xopenex nebs q6h; Levaquin 500 mg qd IV; Ct with BIPAP. (3) Diabetes mellitus type 2, controlled, without complications Qualifiers: Diabetes mellitus intermediate designer insulin use: with fpc use Qualified Code(s): E11.9 - Type 2 diabetes mellitus without complications Is this a current diagnosis for this admission?: YesPlan: Ct with Lantus 65 iu qhs subcut; slidding scale with humalog insulin, [facility] protocol; 1800 calorie ADA diet; f/u HBA1C result. (4) HTN (hypertension) Qualifiers: Hypertension type: essential hypertension Qualified Code(s): I10 - Essential (primary) hypertension Is this a current diagnosis for this admission?: YesPlan: Ct with Losartan 50 mg qd po; Metoprolol 100 mg BID po; 2 g sodium diet. (5) Hyperlipidemia Is this a current diagnosis for this admission?: YesPlan: Ct with Zetia 10 mg qd po; 200 mg cholesterol diet. (6) Diastolic CHF, chronic Is this a current diagnosis for this admission?: YesPlan: Ct with Lasix 20 mg qd po; strict input/out put chart; daily weight; monitor chemistry daily. (7) Congestive heart failure Qualifiers: Congestive heart failure type: unspecified congestive heart failure type Congestive heart failure chronicity: chronic Qualified Code(s): I50.9 - Heart failure, unspecified Is this a current diagnosis for this admission?: Yes (8) Atrial fibrillation Qualifiers: Atrial fibrillation type: paroxysmal Qualified Code(s): I48.0 - Paroxysmal atrial fibrillation Is this a current diagnosis for this admission?: YesPlan: Ct with Digoxin 0.125 mg qd po; Metoprolol 100 mg BID po. (9) NSTEMI (non-ST elevated myocardial infarction) Is this a current diagnosis for this admission?: YesPlan: Ct with Plavix 75 mg qd po; ASA 81 mg qd po. (10) Cerebral vascular disease Is this a current diagnosis for this admission?: YesPlan: Ct with ASA 81 mg qd po; Plavix 75 mg qd po. (11) PAD (peripheral artery disease) Is this a current diagnosis for this admission?: YesPlan: Ct with ASA 81 mg qd po; Plavix 75 mg qd po. (12) Diabetic neuropathy Is this a current diagnosis for this admission?: YesPlan: Ct with Gabapentin 300 mg BID po. (13) GERD (gastroesophageal reflux disease) Qualifiers: Esophagitis presence: without esophagitis Qualified Code(s): K21.9 - Gastro-esophageal reflux disease without esophagitis Is this a current diagnosis for this admission?: YesPlan: Ct with Prevacid 30 mg qd po since we do not have Protonix po in our formulary. (14) Constipation Is this a current diagnosis for this admission?: YesPlan: Ct with Colace 100 mg qd po prn (15) Depression Qualifiers: Depression Type: unspecified Qualified Code(s): F32.9 - Major depressive disorder, single episode, unspecified Is this a current diagnosis for this admission?: YesPlan: Ct with Paxil 40 mg qd po; Trazodone 50 mg qhs po. (16) DVT prophylaxis Is this a current diagnosis for this admission?: YesPlan: Ct with Lovenox 40 mg qd subcut; SCD.
[2016-10-26] MEDS: INSULIN LISPRO 100 UNIT/ML 3 ML VIAL SUBCUT PRN ×2 (17:41→22:49)
[2016-10-26] MEDS ORDERED: FUROSEMIDE INJ/PF 20 MG/2 ML SDV ONE ×2 (17:43→17:44)
[2016-10-26] MEDS: TRAZODONE HCL 50 MG TABLET PO SCH (22:48)
[2016-10-26] MEDS: INSULIN GLARGINE,HUM.REC.ANLOG 1,000 UNIT/10 ML UNIT SUBCUT SCH (22:49)
[2016-10-27] MEDS: LEVALBUTEROL HCL NEB 1.25 MG/3 ML AMPUL NEB SCH ×4 (02:46→20:46)
[2016-10-27 04:48] LABS: ABSOLUTE LYMPHOCYTES (AUTO) 0.8 10^3/uL (0.5-4.7); ABSOLUTE MONOCYTES (AUTO) 1.1 10^3/uL (0.1-1.4); ABSOLUTE NEUT (AUTO) 5.3 10^3/uL (1.7-8.2); BASOPHILS % (AUTO) 0.1 % (0-2); EOSINOPHILS % (AUTO) 0.1 % (0-6); HEMATOCRIT 39.1 % (36.0-47.0); HEMOGLOBIN 13.1 g/dL (12.0-15.5); HGB HCT DIFFERENCE 0.2; LYMPHOCYTES % (AUTO) 10.5 % (13-45); MEAN CORPUSCULAR HEMOGLOBIN 28.9 pg (27.0-33.4); MEAN CORPUSCULAR HGB CONC 33.4 g/dL (32.0-36.0); MEAN CORPUSCULAR VOLUME 87 fl (80-97); MONOCYTES % (AUTO) 15.5 % (3-13); RED BLOOD COUNT 4.52 10^6/uL (3.72-5.28); RED CELL DISTRIBUTION WIDTH 14.5 % (11.5-14.0); SEGMENTED NEUTROPHILS % (AUTO) 73.8 % (42-78); WHITE BLOOD COUNT 7.2 10^3/uL (4.0-10.5)
[2016-10-27 05:06] LABS: ALANINE AMINOTRANSFERASE 37 U/L (9-52); ALKALINE PHOSPHATASE 64 U/L (38-126); ANION GAP 9 (5-19); ASPARTATE AMINO TRANSFERASE 43 U/L (14-36); BILIRUBIN,TOTAL 0.4 mg/dL (0.2-1.3); BLOOD UREA NITROGEN 33 mg/dL (7-20); CALCIUM 8.8 mg/dL (8.4-10.2); CARBON DIOXIDE 35 mmol/L (22-30); CHLORIDE 94 mmol/L (98-107); GLUCOSE 177 mg/dL (75-110); POTASSIUM 3.7 mmol/L (3.6-5.0); SODIUM 137.7 mmol/L (137-145); TOTAL PROTEIN 5.7 g/dL (6.3-8.2)
[2016-10-27] MEDS: LANSOPRAZOLE 30 MG TAB.RAP.DR PO SCH ×2 (06:25→16:46)
[2016-10-27] MEDS: ENOXAPARIN SODIUM INJ 40 MG/0.4 ML DISP.SYRIN SUBCUT SCH (09:07)
[2016-10-27] MEDS: FUROSEMIDE INJ/PF 20 MG/2 ML SDV IV SCH (09:08)
[2016-10-27] MEDS: CLOPIDOGREL BISULFATE 75 MG TABLET PO SCH (09:10)
[2016-10-27] MEDS: ASPIRIN 81 MG TABLET, CHEWABLE PO SCH (09:10)
[2016-10-27] MEDS: LOSARTAN POTASSIUM 50 MG TABLET PO SCH (09:10)
[2016-10-27] MEDS: EZETIMIBE 10 MG TABLET PO SCH (09:10)
[2016-10-27] MEDS: LEVOFLOXACIN 500 MG TABLET PO SCH (09:11)
[2016-10-27] MEDS: PREDNISONE 20 MG TABLET PO SCH (09:11)
[2016-10-27] MEDS: PAROXETINE HCL 20 MG TABLET PO SCH (09:11)
[2016-10-27] MEDS: GABAPENTIN 300 MG CAPSULE PO SCH ×2 (09:11→21:11)
[2016-10-27] MEDS: METOPROLOL TARTRATE 100 MG TABLET PO SCH ×2 (09:11→21:12)
[2016-10-27] MEDS: DIGOXIN 0.125 MG TABLET PO SCH (09:12)
--- NOTE | 2016-10-27 12:48 | PDOC PROGRESS REPORT ---
Subjective Progress Note for:: 10/27/16 Subjective:: She was admitted for acute on chronic hypercapneic and hypoxic respiratory failure secondary to COPD exacerbation. She developed worsened hypercapnea with confusion last night and was put on BIPAP.He ABG this morning showed some improvement but she is still hypercapneic and confused, hence we we increased her BIPAP settings to 18/6 with FiO2 of 40 % and repeat ABG showed PCO2 of 64.5 which is close to her baseline. She was seen by flight manager, Dr Martin today and he requested for CTA to rule out PE. Pt is still on BIPAP but she is much better clinically and no longer confused. CT showed no PE but edema vs pneumonia. Her BNP was 3470; she was given Lasix 40 mg IVx1 and Lasix 20 mg daily IV; she has been feeling good and no longer on BIPAP. Anticipate discharge home on 10/29/2016. Physical Exam Vital Signs: Temp Pulse Resp BP Pulse Ox 98.5 F 62 18 150/57 H 93 10/27/16 07:56 10/27/16 08:08 10/27/16 08:08 10/27/16 07:56 10/27/16 08:08 Intake & Output 10/26/16 10/27/16 10/28/16 06:59 06:59 06:59 Intake Total 978 1205 Balance 978 1205 Weight 79.4 kg 79 kg General appearance: PRESENT: no acute distress, well-developed, well-nourished Head exam: PRESENT: atraumatic, normocephalic Eye exam: PRESENT: EOMI, PERRLA Mouth exam: PRESENT: moist, neck supple Respiratory exam: PRESENT: decreased breath sounds Cardiovascular exam: PRESENT: +S1, +S2 GI/Abdominal exam: PRESENT: normal bowel sounds, soft Rectal exam: PRESENT: deferred Neurological exam: PRESENT: alert, awake, oriented to person, oriented to place , oriented to time Psychiatric exam: PRESENT: normal mood Results Laboratory Results: 10/27/16 04:16 10/27/16 04:16 10/27/16 10/27/16 04:16 04:16 WBC 7.2 RBC 4.52 Hgb 13.1 Hct 39.1 MCV 87 MCH 28.9 MCHC 33.4 RDW 14.5 H Plt Count 182 Seg Neutrophils % 73.8 Lymphocytes % 10.5 L Monocytes % 15.5 H Eosinophils % 0.1 Basophils % 0.1 Absolute Neutrophils 5.3 Absolute Lymphocytes 0.8 Absolute Monocytes 1.1 Absolute Eosinophils 0.0 Absolute Basophils 0.0 Sodium 137.7 Potassium 3.7 Chloride 94 L Carbon Dioxide 35 H Anion Gap 9 BUN 33 H Creatinine 1.00 Est GFR ( Amer) > 60 Est GFR (Non-Af Amer) 53 L Glucose 177 H Calcium 8.8 Total Bilirubin 0.4 AST 43 H ALT 37 Alkaline Phosphatase 64 Total Protein 5.7 L Albumin 3.0 L 10/26/16 18:10 NT-Pro-B Natriuret Pep 3470 H Impressions: Chest X-Ray 10/26/16 00:00 IMPRESSION: NO ACUTE RADIOGRAPHIC FINDING IN THE CHEST. Chest/Abdomen CTA 10/26/16 00:00 IMPRESSION: No CT angio evidence of acute pulmonary emboli. No pleural effusions. Patchy ground-glass opacity right greater than left, edema versus pneumonia. Assessment & Plan - Diagnosis (1) Acute hypercapnic respiratory failure Is this a current diagnosis for this admission?: YesPlan: Ct with oxygen by N/C 2 L/min to keep saturation>92%; Duonebs q4h prn; Xopenex nebs q6h; Prednisone 60 mg qd po. (2) COPD exacerbation Is this a current diagnosis for this admission?: YesPlan: Ct with oxygen by N/C at 2 L/min to keep saturation>92%; Prednisone 60 mg qd po ; Duonebs q4h prn; Xopenex nebs q6h; Levaquin 500 mg qd po; D/C BIPAP. (3) Diastolic CHF, acute on chronic Is this a current diagnosis for this admission?: YesPlan: She was given Lasix 40 mg IV stat; then Lasix 20 mg daily IV; Ct with oxygen by N/C 2 L/min to keep saturation >92%; She had ECHO in 07/2016 that showed EF >55% . Daily wt, strict input/out put chart; monitor chemistry daily. She no longer need BIPAP. (4) Diabetes mellitus type 2, controlled, without complications Qualifiers: Diabetes mellitus dietary aide insulin use: with skilled nursing use Qualified Code(s): E11.9 - Type 2 diabetes mellitus without complications Is this a current diagnosis for this admission?: YesPlan: Ct with Lantus 65 iu qhs subcut; slidding scale with humalog insulin, OM protocol; 1800 calorie ADA diet; f/u HBA1C result. (5) HTN (hypertension) Qualifiers: Hypertension type: essential hypertension Qualified Code(s): I10 - Essential (primary) hypertension Is this a current diagnosis for this admission?: YesPlan: Ct with Losartan 50 mg qd po; Metoprolol 100 mg BID po; 2 g sodium diet. (6) Hyperlipidemia Is this a current diagnosis for this admission?: YesPlan: Ct with Zetia 10 mg qd po; 200 mg cholesterol diet. (7) Diastolic CHF, chronic Is this a current diagnosis for this admission?: Yes (8) Congestive heart failure Qualifiers: Congestive heart failure type: unspecified congestive heart failure type Congestive heart failure chronicity: chronic Qualified Code(s): I50.9 - Heart failure, unspecified Is this a current diagnosis for this admission?: Yes (9) Atrial fibrillation Qualifiers: Atrial fibrillation type: paroxysmal Qualified Code(s): I48.0 - Paroxysmal atrial fibrillation Is this a current diagnosis for this admission?: YesPlan: Ct with Digoxin 0.125 mg qd po; Metoprolol 100 mg BID po. (10) NSTEMI (non-ST elevated myocardial infarction) Is this a current diagnosis for this admission?: YesPlan: Ct with Plavix 75 mg qd po; ASA 81 mg qd po. (11) Cerebral vascular disease Is this a current diagnosis for this admission?: YesPlan: Ct with ASA 81 mg qd po; Plavix 75 mg qd po. (12) PAD (peripheral artery disease) Is this a current diagnosis for this admission?: YesPlan: Ct with ASA 81 mg qd po; Plavix 75 mg qd po. (13) Diabetic neuropathy Is this a current diagnosis for this admission?: YesPlan: Ct with Gabapentin 300 mg BID po. (14) GERD (gastroesophageal reflux disease) Qualifiers: Esophagitis presence: without esophagitis Qualified Code(s): K21.9 - Gastro-esophageal reflux disease without esophagitis Is this a current diagnosis for this admission?: YesPlan: Ct with Prevacid 30 mg qd po since we do not have Protonix po in our formulary. (15) Constipation Is this a current diagnosis for this admission?: YesPlan: Ct with Colace 100 mg qd po prn (16) Depression Qualifiers: Depression Type: unspecified Qualified Code(s): F32.9 - Major depressive disorder, single episode, unspecified Is this a current diagnosis for this admission?: YesPlan: Ct with Paxil 40 mg qd po; Trazodone 50 mg qhs po. (17) DVT prophylaxis Is this a current diagnosis for this admission?: YesPlan: Ct with Lovenox 40 mg qd subcut; SCD. - Time Time Spent with patient: 35 or more minutes Medications reviewed and adjusted accordingly: Yes Anticipated discharge: Home Within: within 48 hours
[2016-10-27] MEDS: INSULIN LISPRO 100 UNIT/ML 3 ML VIAL SUBCUT PRN ×2 (15:51→21:40)
[2016-10-27] MEDS: TRAZODONE HCL 50 MG TABLET PO SCH (21:12)
[2016-10-27] MEDS: INSULIN GLARGINE,HUM.REC.ANLOG 1,000 UNIT/10 ML UNIT SUBCUT SCH (21:40)
[2016-10-27] MEDS: ACETAMINOPHEN 325 MG TABLET PO PRN (22:21)
[2016-10-28] MEDS: LEVALBUTEROL HCL NEB 1.25 MG/3 ML AMPUL NEB SCH ×4 (02:10→19:57)
[2016-10-28 05:10] LABS: ABSOLUTE LYMPHOCYTES (AUTO) 0.9 10^3/uL (0.5-4.7); ABSOLUTE NEUT (AUTO) 6.5 10^3/uL (1.7-8.2); EOSINOPHILS % (AUTO) 0.1 % (0-6); HEMATOCRIT 40.3 % (36.0-47.0); HEMOGLOBIN 13.4 g/dL (12.0-15.5); HGB HCT DIFFERENCE -0.1; LYMPHOCYTES % (AUTO) 10.7 % (13-45); MEAN CORPUSCULAR HEMOGLOBIN 28.8 pg (27.0-33.4); MEAN CORPUSCULAR HGB CONC 33.3 g/dL (32.0-36.0); MEAN CORPUSCULAR VOLUME 87 fl (80-97); MONOCYTES % (AUTO) 11.9 % (3-13); RED BLOOD COUNT 4.66 10^6/uL (3.72-5.28); RED CELL DISTRIBUTION WIDTH 14.4 % (11.5-14.0); SEGMENTED NEUTROPHILS % (AUTO) 77.3 % (42-78); WHITE BLOOD COUNT 8.4 10^3/uL (4.0-10.5)
[2016-10-28] MEDS: LANSOPRAZOLE 30 MG TAB.RAP.DR PO SCH ×2 (05:30→16:18)
[2016-10-28 05:37] LABS: ALANINE AMINOTRANSFERASE 32 U/L (9-52); ALBUMIN 3.1 g/dL (3.5-5.0); ALKALINE PHOSPHATASE 65 U/L (38-126); ANION GAP 10 (5-19); ASPARTATE AMINO TRANSFERASE 20 U/L (14-36); BILIRUBIN,TOTAL 0.4 mg/dL (0.2-1.3); BLOOD UREA NITROGEN 36 mg/dL (7-20); CALCIUM 9.2 mg/dL (8.4-10.2); CARBON DIOXIDE 34 mmol/L (22-30); CHLORIDE 94 mmol/L (98-107); CREATININE RESULT 0.99 mg/dL (0.52-1.25); GLUCOSE 134 mg/dL (75-110); POTASSIUM 4.2 mmol/L (3.6-5.0); SODIUM 138.4 mmol/L (137-145); TOTAL PROTEIN 5.8 g/dL (6.3-8.2)
[2016-10-28] MEDS: ENOXAPARIN SODIUM INJ 40 MG/0.4 ML DISP.SYRIN SUBCUT SCH (07:41)
[2016-10-28] MEDS: FUROSEMIDE INJ/PF 20 MG/2 ML SDV IV SCH (09:43)
[2016-10-28] MEDS: ASPIRIN 81 MG TABLET, CHEWABLE PO SCH (09:44)
[2016-10-28] MEDS: METOPROLOL TARTRATE 100 MG TABLET PO SCH ×2 (09:44→21:21)
[2016-10-28] MEDS: DIGOXIN 0.125 MG TABLET PO SCH (09:44)
[2016-10-28] MEDS: LOSARTAN POTASSIUM 50 MG TABLET PO SCH (09:44)
[2016-10-28] MEDS: CLOPIDOGREL BISULFATE 75 MG TABLET PO SCH (09:44)
[2016-10-28] MEDS: GABAPENTIN 300 MG CAPSULE PO SCH ×2 (09:45→21:20)
[2016-10-28] MEDS: EZETIMIBE 10 MG TABLET PO SCH (09:45)
[2016-10-28] MEDS: PAROXETINE HCL 20 MG TABLET PO SCH (09:45)
[2016-10-28] MEDS: LEVOFLOXACIN 500 MG TABLET PO SCH (09:45)
[2016-10-28] MEDS ORDERED: PREDNISONE 20 MG TABLET PO SCH (10:00)
--- NOTE | 2016-10-28 12:59 | PDOC PROGRESS REPORT ---
Subjective Progress Note for:: 10/28/16 Subjective:: She was admitted for acute on chronic hypercapneic and hypoxic respiratory failure secondary to COPD exacerbation. She developed worsened hypercapnea with confusion last night and was put on BIPAP.He ABG this morning showed some improvement but she is still hypercapneic and confused, hence we we increased her BIPAP settings to 18/6 with FiO2 of 40 % and repeat ABG showed PCO2 of 64.5 which is close to her baseline. She was seen by transportation equipment painter, Dr Martin today and he requested for CTA to rule out PE. Pt is still on BIPAP but she is much better clinically and no longer confused. CT showed no PE but edema vs pneumonia. Her BNP was 3470; she was given Lasix 40 mg IVx1 and Lasix 20 mg daily IV; she has been feeling good and no longer on BIPAP. We will decrease Prednisone to 20 mg qd po.Anticipate discharge home on 10/29/2016. Physical Exam Vital Signs: Temp Pulse Resp BP Pulse Ox 98.4 F 65 19 154/63 H 94 10/28/16 11:44 10/28/16 11:44 10/28/16 11:44 10/28/16 11:44 10/28/16 11:44 Intake & Output 10/27/16 10/28/16 10/29/16 06:59 06:59 06:59 Intake Total 1205 1144 230 Output Total 0 Balance 1205 1144 230 Weight 79 kg 79.6 kg General appearance: PRESENT: mild distress, well-developed, well-nourished Head exam: PRESENT: atraumatic, normocephalic Eye exam: PRESENT: EOMI, PERRLA Mouth exam: PRESENT: moist, tongue midline Respiratory exam: PRESENT: decreased breath sounds Cardiovascular exam: PRESENT: irregular rhythm, +S1, +S2 Pulses: PRESENT: +1 pedal pulses bilateral GI/Abdominal exam: PRESENT: normal bowel sounds, soft Rectal exam: PRESENT: deferred Neurological exam: PRESENT: alert, awake, oriented to person, oriented to place , oriented to time Psychiatric exam: PRESENT: normal mood Results Laboratory Results: 10/28/16 04:07 10/28/16 04:07 10/28/16 10/28/16 04:07 04:07 WBC 8.4 RBC 4.66 Hgb 13.4 Hct 40.3 MCV 87 MCH 28.8 MCHC 33.3 RDW 14.4 H Plt Count 183 Seg Neutrophils % 77.3 Lymphocytes % 10.7 L Monocytes % 11.9 Eosinophils % 0.1 Basophils % 0.0 Absolute Neutrophils 6.5 Absolute Lymphocytes 0.9 Absolute Monocytes 1.0 Absolute Eosinophils 0.0 Absolute Basophils 0.0 Sodium 138.4 Potassium 4.2 Chloride 94 L Carbon Dioxide 34 H Anion Gap 10 BUN 36 H Creatinine 0.99 Est GFR ( Amer) > 60 Est GFR (Non-Af Amer) 54 L Glucose 134 H Calcium 9.2 Total Bilirubin 0.4 AST 20 ALT 32 Alkaline Phosphatase 65 Total Protein 5.8 L Albumin 3.1 L 10/22/16 21:50 Blood Blood Culture - Final NO GROWTH IN 5 DAYS 10/22/16 21:05 Blood Blood Culture - Final NO GROWTH IN 5 DAYS 10/26/16 18:10 NT-Pro-B Natriuret Pep 3470 H Impressions: Chest X-Ray 10/26/16 00:00 IMPRESSION: NO ACUTE RADIOGRAPHIC FINDING IN THE CHEST. Chest/Abdomen CTA 10/26/16 00:00 IMPRESSION: No CT angio evidence of acute pulmonary emboli. No pleural effusions. Patchy ground-glass opacity right greater than left, edema versus pneumonia. Assessment & Plan - Diagnosis (1) Acute hypercapnic respiratory failure Is this a current diagnosis for this admission?: YesPlan: Ct with oxygen by N/C 2 L/min to keep saturation>92%; Duonebs q4h prn; Xopenex nebs q6h; Prednisone 20 mg qd po. (2) COPD exacerbation Is this a current diagnosis for this admission?: YesPlan: Ct with oxygen by N/C at 2 L/min to keep saturation>92%; Prednisone 20 mg qd po ; Duonebs q4h prn; Xopenex nebs q6h; Levaquin 500 mg qd po; D/C BIPAP. (3) Diastolic CHF, acute on chronic Is this a current diagnosis for this admission?: YesPlan: She was given Lasix 40 mg IV stat; then Lasix 20 mg daily IV; Ct with oxygen by N/C 2 L/min to keep saturation >92%; She had ECHO in 07/2016 that showed EF >55% . Daily wt, strict input/out put chart; monitor chemistry daily. She no longer need BIPAP. (4) Diabetes mellitus type 2, controlled, without complications Qualifiers: Diabetes mellitus remote computer terminal operator insulin use: with senior living use Qualified Code(s): E11.9 - Type 2 diabetes mellitus without complications Is this a current diagnosis for this admission?: YesPlan: Ct with Lantus 65 iu qhs subcut; slidding scale with humalog insulin, [facility] protocol; 1800 calorie ADA diet; f/u HBA1C result. (5) HTN (hypertension) Qualifiers: Hypertension type: essential hypertension Qualified Code(s): I10 - Essential (primary) hypertension Is this a current diagnosis for this admission?: YesPlan: Ct with Losartan 50 mg qd po; Metoprolol 100 mg BID po; 2 g sodium diet. (6) Hyperlipidemia Is this a current diagnosis for this admission?: YesPlan: Ct with Zetia 10 mg qd po; 200 mg cholesterol diet. (7) Diastolic CHF, chronic Is this a current diagnosis for this admission?: Yes (8) Congestive heart failure Qualifiers: Congestive heart failure type: unspecified congestive heart failure type Congestive heart failure chronicity: chronic Qualified Code(s): I50.9 - Heart failure, unspecified Is this a current diagnosis for this admission?: Yes (9) Atrial fibrillation Qualifiers: Atrial fibrillation type: paroxysmal Qualified Code(s): I48.0 - Paroxysmal atrial fibrillation Is this a current diagnosis for this admission?: YesPlan: Ct with Digoxin 0.125 mg qd po; Metoprolol 100 mg BID po. (10) NSTEMI (non-ST elevated myocardial infarction) Is this a current diagnosis for this admission?: YesPlan: Ct with Plavix 75 mg qd po; ASA 81 mg qd po. (11) Cerebral vascular disease Is this a current diagnosis for this admission?: YesPlan: Ct with ASA 81 mg qd po; Plavix 75 mg qd po. (12) PAD (peripheral artery disease) Is this a current diagnosis for this admission?: YesPlan: Ct with ASA 81 mg qd po; Plavix 75 mg qd po. (13) Diabetic neuropathy Is this a current diagnosis for this admission?: YesPlan: Ct with Gabapentin 300 mg BID po. (14) GERD (gastroesophageal reflux disease) Qualifiers: Esophagitis presence: without esophagitis Qualified Code(s): K21.9 - Gastro-esophageal reflux disease without esophagitis Is this a current diagnosis for this admission?: YesPlan: Ct with Prevacid 30 mg qd po since we do not have Protonix po in our formulary. (15) Constipation Is this a current diagnosis for this admission?: YesPlan: Ct with Colace 100 mg qd po prn (16) Depression Qualifiers: Depression Type: unspecified Qualified Code(s): F32.9 - Major depressive disorder, single episode, unspecified Is this a current diagnosis for this admission?: YesPlan: Ct with Paxil 40 mg qd po; Trazodone 50 mg qhs po. (17) DVT prophylaxis Is this a current diagnosis for this admission?: YesPlan: Ct with Lovenox 40 mg qd subcut; SCD. - Time Time Spent with patient: 35 or more minutes Medications reviewed and adjusted accordingly: Yes Anticipated discharge: Home Within: within 24 hours
[2016-10-28] MEDS: INSULIN LISPRO 100 UNIT/ML 3 ML VIAL SUBCUT PRN ×2 (18:10→22:09)
[2016-10-28] MEDS: TRAZODONE HCL 50 MG TABLET PO SCH (21:20)
[2016-10-28] MEDS: INSULIN GLARGINE,HUM.REC.ANLOG 1,000 UNIT/10 ML UNIT SUBCUT SCH (22:09)
[2016-10-29] MEDS: LEVALBUTEROL HCL NEB 1.25 MG/3 ML AMPUL NEB SCH ×2 (02:13→07:42)
[2016-10-29] MEDS: LANSOPRAZOLE 30 MG TAB.RAP.DR PO SCH (05:56)
[2016-10-29] MEDS: ENOXAPARIN SODIUM INJ 40 MG/0.4 ML DISP.SYRIN SUBCUT SCH (07:36)
[2016-10-29] MEDS: FUROSEMIDE INJ/PF 20 MG/2 ML SDV IV SCH (09:18)
[2016-10-29] MEDS: ASPIRIN 81 MG TABLET, CHEWABLE PO SCH (09:19)
[2016-10-29] MEDS: PAROXETINE HCL 20 MG TABLET PO SCH (09:19)
[2016-10-29] MEDS: LEVOFLOXACIN 500 MG TABLET PO SCH (09:20)
[2016-10-29] MEDS: DIGOXIN 0.125 MG TABLET PO SCH (09:20)
[2016-10-29] MEDS: LOSARTAN POTASSIUM 50 MG TABLET PO SCH (09:20)
[2016-10-29] MEDS: METOPROLOL TARTRATE 100 MG TABLET PO SCH (09:20)
[2016-10-29] MEDS: GABAPENTIN 300 MG CAPSULE PO SCH (09:20)
[2016-10-29] MEDS: CLOPIDOGREL BISULFATE 75 MG TABLET PO SCH (09:20)
[2016-10-29] MEDS: EZETIMIBE 10 MG TABLET PO SCH (09:20)
[2016-10-29] MEDS ORDERED: PREDNISONE 20 MG TABLET PO SCH (10:00)
--- NOTE | 2016-10-29 10:47 | PDOC DISCHARGE SUMMARY ---
General - Admit/Disc Date/PCP Admission Date/Primary Care Provider: 10/22/16 09:00 ANU ASTUDILLO Discharge Date: 10/29/16 - Discharge Diagnosis (1) Acute hypercapnic respiratory failure Is this a current diagnosis for this admission?: Yes (2) COPD exacerbation Is this a current diagnosis for this admission?: Yes (3) Diastolic CHF, acute on chronic Is this a current diagnosis for this admission?: Yes (4) Diabetes mellitus type 2, controlled, without complications Is this a current diagnosis for this admission?: Yes (5) HTN (hypertension) Is this a current diagnosis for this admission?: Yes (6) Hyperlipidemia Is this a current diagnosis for this admission?: Yes (7) Diastolic CHF, chronic Is this a current diagnosis for this admission?: Yes (8) Congestive heart failure Is this a current diagnosis for this admission?: Yes (9) Atrial fibrillation Is this a current diagnosis for this admission?: Yes (10) NSTEMI (non-ST elevated myocardial infarction) Is this a current diagnosis for this admission?: Yes (11) Cerebral vascular disease Is this a current diagnosis for this admission?: Yes (12) PAD (peripheral artery disease) Is this a current diagnosis for this admission?: Yes (13) Diabetic neuropathy Is this a current diagnosis for this admission?: Yes (14) GERD (gastroesophageal reflux disease) Is this a current diagnosis for this admission?: Yes (15) Constipation Is this a current diagnosis for this admission?: Yes (16) Depression Is this a current diagnosis for this admission?: Yes (17) DVT prophylaxis Is this a current diagnosis for this admission?: Yes - Additional Information Discharge Diet: As Tolerated Discharge Activity: Activity As Tolerated, Balance Activity w/Rest, Weigh Daily Home Medications: Acetaminophen [Tylenol Extra Strength 500 mg Tablet] 500 mg PO BIDP PRN Albuterol Sulfate [Ventolin HFA MDI 18 GM] 1 puff IH Q6HP PRN 10/22/16 Aspirin [Ecotrin 81 mg EC Tablet] 81 mg PO DAILY 10/22/16 Clopidogrel Bisulfate [Plavix 75 mg Tablet] 75 mg PO DAILY 10/22/16 Digoxin [Lanoxin 0.125 mg Tablet] 0.125 mg PO DAILY 10/22/16 Ergocalciferol (Vitamin D2) [Drisdol 50,000 unit (1.25MG) Capsule] 50,000 unit PO TH@1000 10/22/16 Ezetimibe [Zetia 10 mg Tablet] 10 mg PO DAILY 10/22/16 Fluticasone Propionate [Flonase Nasal [place] 50 Mcg/[place] 16 gm] 2 spray NASL DAILY 10/22/16 Furosemide [Lasix] 20 mg PO DAILY 10/22/16 Gabapentin [Neurontin 300 mg Capsule] 300 mg PO BID@0800,1600 10/22/16 Gabapentin [Neurontin] 600 mg PO QHS 10/22/16 Insulin Aspart [Novolog Insulin (Aspart) 100 unit/mL] 0 units SQ .PERSLIDINGSCALE 10/22/16 Isosorbide Mononitrate [Imdur 30 mg Tablet.er] 90 mg PO DAILY 10/22/16 Meclizine HCl [Antivert 25 mg Tablet] 25 mg PO TIDP PRN 10/22/16 Metoprolol Tartrate [Lopressor 100 mg Tablet] 100 mg PO Q12 10/22/16 Paroxetine HCl [Paxil] 40 mg PO DAILY 10/22/16 Polyethylene Glycol 3350 [Miralax Powder 17 gm/Packet] 17 gm PO DAILYP PRN 10/22 Trazodone HCl [Desyrel] 100 mg PO QHS 10/22/16 Vit A/Vit C/Vit E/Zinc/Copper [Preservision Areds Softgel] 1 each PO BID Insulin Glargine,Hum.rec.anlog [Lantus] 65 units SQ WBRKFST #0 10/29/16 Levofloxacin [Levaquin 500 mg Tablet] 500 mg PO DAILY #5 tablet 10/29/16 Prednisone [Deltasone 20 mg Tablet] 20 mg PO DAILY #7 tablet 10/29/16 History of Present Illness History of Present Illness: REI ROBLES is a 81 year old female with hx of DM2/HTN/Hyperlipidemia/CHF/COPD/ A-fib/CAD s.p NSTEMI/PAD s.p left leg bypass/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 She is being admitted for COPD exacerbation. Hospital Course Hospital Course: 81 year old woman who was admitted initially for hypercapnic respiratory failure secondary to COPD exacerbation. She improved and later became BIPAP dependent and we had CTA that was negative for PE. She was found to be in acute on chronic diastolic CHF decompensation and was started on Lasix IX and she responded well and was weaned off BIPAP. She is on oxygen by N/C at 2 l/min continuously. She had pulse oximetry test on 10/28/2016 by the nurse Mr Pérez and was found be less than 88% on RA. She meets the criteria for home oxygen - 2 L/min continuously. The prefers home health services with [facility] for PT/OT due to deconditioning and she will be D/C home on oxygen by 2 L/min as above. Physical Exam Vital Signs: Temp Pulse Resp BP Pulse Ox 97.8 F 64 19 113/50 L 93 10/29/16 08:22 10/29/16 08:42 10/29/16 08:22 10/29/16 08:22 10/29/16 08:22 Intake & Output 10/28/16 10/29/16 10/30/16 06:59 06:59 06:59 Intake Total 1144 916 Output Total 0 Balance 1144 916 Weight 79.6 kg 78.9 kg General appearance: PRESENT: no acute distress, well-developed, well-nourished Head exam: PRESENT: atraumatic, normocephalic Eye exam: PRESENT: EOMI, PERRLA Ear exam: PRESENT: normal external ear exam, TM's normal bilaterally Mouth exam: PRESENT: neck supple, tongue midline Respiratory exam: PRESENT: decreased breath sounds, symmetrical Cardiovascular exam: PRESENT: irregular rhythm, +S1, +S2 GI/Abdominal exam: PRESENT: normal bowel sounds, soft Rectal exam: PRESENT: deferred Neurological exam: PRESENT: alert, awake, oriented to person, oriented to place Psychiatric exam: PRESENT: normal mood Results Laboratory Results: 10/28/16 04:07 10/28/16 04:07 10/26/16 18:10 NT-Pro-B Natriuret Pep 3470 H Impressions: Chest X-Ray 10/26/16 00:00 IMPRESSION: NO ACUTE RADIOGRAPHIC FINDING IN THE CHEST. Chest/Abdomen CTA 10/26/16 00:00 IMPRESSION: No CT angio evidence of acute pulmonary emboli. No pleural effusions. Patchy ground-glass opacity right greater than left, edema versus pneumonia.
[2016-10-29] MEDS: INSULIN LISPRO 100 UNIT/ML 3 ML VIAL SUBCUT PRN (11:40)
[2016-10-29 11:59] VITALS: BP 130/49
== END 2016-10-29 13:03 | disposition home health service (06) | DRG 190 ==
LOC: ER 02:12 → EH 08:25 → UNDOADMIN 08:25 → EH 09:00 → 3N 09:50
PROVIDERS: ADMIT Internal Medicine; ATTEND Internal Medicine
PROC: 3E0F73Z Introduction of Anti-inflammatory into Respiratory Tract, Via Natural or Artificial Opening (ICD-10-PCS; 2016-10-22)
PROC: 5A09457 Assistance with Respiratory Ventilation, 24-96 Consecutive Hours, Continuous Positive Airway Pressure (ICD-10-PCS; principal; 2016-10-24)
DX: J44.1 Chronic obstructive pulmonary disease with (acute) exacerbation (principal); I50.33 Acute on chronic diastolic (congestive) heart failure; J96.22 Acute and chronic respiratory failure with hypercapnia; J96.21 Acute and chronic respiratory failure with hypoxia; I69.351 Hemiplegia and hemiparesis following cerebral infarction affecting right dominant side; I11.0 Hypertensive heart disease with heart failure; E78.5 Hyperlipidemia, unspecified; I48.0 Paroxysmal atrial fibrillation; E11.40 Type 2 diabetes mellitus with diabetic neuropathy, unspecified; E11.51 Type 2 diabetes mellitus with diabetic peripheral angiopathy without gangrene; K21.9 Gastro-esophageal reflux disease without esophagitis; K59.00 Constipation, unspecified; F32.9 Major depressive disorder, single episode, unspecified; I25.10 Atherosclerotic heart disease of native coronary artery without angina pectoris; Z78.1 Physical restraint status; Z79.02 Long term (current) use of antithrombotics/antiplatelets; Z79.82 Long term (current) use of aspirin; Z79.4 Long term (current) use of insulin; Z79.899 Other long term (current) drug therapy; Z87.891 Personal history of nicotine dependence; Z90.11 Acquired absence of right breast and nipple; Z90.5 Acquired absence of kidney; Z83.3 Family history of diabetes mellitus; Z82.49 Family history of ischemic heart disease and other diseases of the circulatory system
CPT/HCPCS: 36415; 36600; 71010; 71275; 80048; 80053; 80061; 82803; 82962; 83036; 83880; 84443; 84484; 85025; 87040; 93005; 93010; 94640; 94660; 96365; 96366; 96375; 99285; G8978-GP; G8979-GP; G8987-GO; G8988-GO; J1650; J1815; J1940; J1956; J2060; J2930; J3475; J3490; J7512; J7620

== ENCOUNTER 2016-11-06 08:33 | Inpatient (IN) | payer MEDICARE, OTHER ==
[2016-11-06] MEDS ORDERED: IPRATROPIUM/ALBUTEROL 0.5-2.5 MG/3 ML AMPUL NEB ONE (09:59)
--- NOTE | 2016-11-06 10:11 | ER Document Report ---
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 EMS and patient's family reports the patient did fall from her wheelchair to the floor. She did not hit her head or lose consciousness. She has been complaining of left hip pain since the fall. Of note she is recently also had an increasing cough and family is concerned about possible pneumonia. No fevers. TRAVEL OUTSIDE OF THE [place] IN LAST 30 DAYS: No - Related data Allergies/Adverse Reactions: No Known Allergies Allergy (Verified 09/25/16 20:26) Home Medications: Current Home Medications Albuterol Sulfate [Proair HFA] 2 puff IH Q4 11/06/16 [History] Cholecalciferol (Vitamin D3) [Vitamin D3 5000 unit Capsule] 5,000 unit PO VALDOVINOS [History] Clopidogrel Bisulfate [Plavix 75 mg Tablet] 75 mg PO DAILY 11/06/16 [History] Digoxin [Lanoxin 0.125 mg Tablet] 0.125 mg PO DAILY 11/06/16 [History] Ezetimibe [Zetia 10 mg Tablet] 10 mg PO DAILY 11/06/16 [History] Gabapentin [Neurontin 300 mg Capsule] 300 mg PO NOON 11/06/16 [History] Gabapentin [Neurontin 300 mg Capsule] 300 mg PO QAM 11/06/16 [History] Gabapentin [Neurontin 300 mg Capsule] 600 mg PO QHS 11/06/16 [History] Insulin Aspart [Novolog Insulin (Aspart) 100 unit/mL] See Protocol SQ BID [History] Insulin Glargine,Hum.rec.anlog [Lantus] 70 units SQ QAM 11/06/16 [History] Isosorbide Mononitrate [Imdur 60 mg Tablet.er] 90 mg PO DAILY 11/06/16 [History] Metoprolol Tartrate [Lopressor 100 mg Tablet] 100 mg PO Q12 11/06/16 [History] Pantoprazole Sodium [Protonix] 40 mg PO DAILY 11/06/16 [History] Paroxetine HCl [Paxil] 40 mg PO DAILY 11/06/16 [History] Trazodone HCl [Desyrel] 100 mg PO QHS 11/06/16 [History] Past Medical History - General Information source: Patient, Relative, Emergency Med Personnel, [facility] Records - Social History Smoking Status: Unknown if Ever Smoked Family History: CAD, DM - Past Medical History Cardiac Medical History: Reports: Hx Atrial Fibrillation, Hx Coronary Artery Disease, Hx Hypertension Pulmonary Medical History: Reports: Hx COPD - On record Neurological Medical History: Reports: Hx Cerebrovascular Accident - right hemiparesis Endocrine Medical History: Reports: Hx Diabetes Mellitus Type 1, Hx Diabetes Mellitus Type 2 Renal/ Medical History: Denies: Hx Peritoneal Dialysis GI Medical History: Reports: Hx Gastroesophageal Reflux Disease Psychiatric Medical History: Reports: Hx Depression Past Surgical History: Reports: Hx Breast Surgery - right mastectomy, Hx Kidney (Renal Surgery) - right kidney removed, Hx Mastectomy - Right nephrectomy, Hx Vascular Surgery - Right fem-pop bypass, Left vein harvesting - Immunizations Hx Diphtheria, Pertussis, Tetanus Vaccination: No Review of Systems - Review of Systems -: Yes ROS unobtainable due to patient's medical condition Physical Exam - Vital signs Vitals: Temp BP 98.3 F 152/67 H 11/06/16 08:41 11/06/16 08:41 - Notes Notes: PHYSICAL EXAMINATION: GENERAL: Well-appearing, well-nourished and in no acute distress. HEAD: Atraumatic, normocephalic. EYES: Pupils equal round and reactive to light, extraocular movements intact, sclera anicteric, conjunctiva are normal. ENT: nares patent, oropharynx clear without exudates. Moist mucous membranes. NECK: Normal range of motion, supple without lymphadenopathy LUNGS: Breath sounds clear to auscultation bilaterally and equal. No wheezes rales or rhonchi. HEART: Regular rate and rhythm without murmurs ABDOMEN: Soft, nontender, normoactive bowel sounds. No guarding, no rebound. No masses appreciated. EXTREMITIES: Distal pulses intact. No open wounds. TTP to left greater trochanter area. No knee or ankle deformity or TTP. Pain with L hip flexion. NEUROLOGICAL: Cranial nerves grossly intact. Expressive aphasia from prior CVA. Baseline per . PSYCH: Normal mood, normal affect. SKIN: Warm, Dry, normal turgor, no rashes or lesions noted. Course - Re-evaluation Re-evalutation: 11/06/16 14:25 Discussed x-ray findings with orthopedic Dr. Spivey who recommends admission to the hospitalist and he will consult. - Vital Signs Vital signs: Temp Pulse Resp BP Pulse Ox 98.3 F 19 121/47 L 98 11/06/16 08:41 11/06/16 14:01 11/06/16 14:01 11/06/16 14:01 - Laboratory Result Diagrams: 11/06/16 08:55 11/06/16 08:55 Laboratory results interpreted by me: 11/06/16 11/06/16 08:55 08:55 WBC 12.4 H RDW 14.2 H Absolute Neutrophils 9.5 H Carbon Dioxide 35 H BUN 26 H Est GFR (Non-Af Amer) 50 L Total Protein 5.4 L Albumin 2.7 L - Diagnostic Test Radiology reviewed: Image reviewed, Reports reviewed - L intratrochanteric femoral fracture varus angulation Discharge - Discharge Clinical Impression: Closed left hip fracture Qualifiers: Encounter type: initial encounter Qualified Code(s): S72.002A - Fracture of unspecified part of neck of left femur, initial encounter for closed fracture Condition: Stable Disposition: ADMITTED INPATIENT Admitting Provider: Hospitalist - Dr Griffiths Unit Admitted: [facility]
[2016-11-06 10:30] LABS: ABSOLUTE EOSINOPHILS # (AUTO) 0.2 10^3/uL (0.0-0.6); ABSOLUTE LYMPHOCYTES (AUTO) 1.8 10^3/uL (0.5-4.7); ABSOLUTE MONOCYTES (AUTO) 0.9 10^3/uL (0.1-1.4); ABSOLUTE NEUT (AUTO) 9.5 10^3/uL (1.7-8.2); BASOPHILS % (AUTO) 0.4 % (0-2); EOSINOPHILS % (AUTO) 1.3 % (0-6); HEMATOCRIT 38.7 % (36.0-47.0); HEMOGLOBIN 12.6 g/dL (12.0-15.5); HGB HCT DIFFERENCE -0.9; LYMPHOCYTES % (AUTO) 14.3 % (13-45); MEAN CORPUSCULAR HEMOGLOBIN 28.4 pg (27.0-33.4); MEAN CORPUSCULAR HGB CONC 32.6 g/dL (32.0-36.0); MEAN CORPUSCULAR VOLUME 87 fl (80-97); MONOCYTES % (AUTO) 7.1 % (3-13); RED BLOOD COUNT 4.44 10^6/uL (3.72-5.28); RED CELL DISTRIBUTION WIDTH 14.2 % (11.5-14.0); SEGMENTED NEUTROPHILS % (AUTO) 76.9 % (42-78); WHITE BLOOD COUNT 12.4 10^3/uL (4.0-10.5)
[2016-11-06 10:48] LABS: ALANINE AMINOTRANSFERASE 38 U/L (9-52); ALBUMIN 2.7 g/dL (3.5-5.0); ALKALINE PHOSPHATASE 57 U/L (38-126); ANION GAP 6 (5-19); ASPARTATE AMINO TRANSFERASE 23 U/L (14-36); BILIRUBIN,TOTAL 0.5 mg/dL (0.2-1.3); BLOOD UREA NITROGEN 26 mg/dL (7-20); CALCIUM 8.5 mg/dL (8.4-10.2); CARBON DIOXIDE 35 mmol/L (22-30); CHLORIDE 99 mmol/L (98-107); CREATININE RESULT 1.06 mg/dL (0.52-1.25); GLUCOSE 108 mg/dL (75-110); POTASSIUM 4.2 mmol/L (3.6-5.0); SODIUM 139.9 mmol/L (137-145); TOTAL PROTEIN 5.4 g/dL (6.3-8.2)
[2016-11-06 10:49] LABS: PARTIAL THROMBOPLASTIN TIME 29.2 SEC (23.5-35.8); PROTHROMBIN TIME 12.4 SEC (11.4-15.4)
[2016-11-06] MEDS ORDERED: NORMAL SALINE 1000 ML 1,000 ML IV PRN (14:06)
[2016-11-06] MEDS ORDERED: GLUCAGON,HUMAN RECOMB 1 MG INJ IM PRN (14:11)
[2016-11-06] MEDS ORDERED: DEXTROSE 50%-WATER 25 GM/50 ML DISP.SYRIN IV PRN ×2 (14:11)
[2016-11-06] MEDS ORDERED: DEXTROSE 40% GEL 15 GM TUBE PO PRN ×2 (14:11)
[2016-11-06] MEDS ORDERED: ACETAMINOPHEN 325 MG TABLET PO ONE (14:26)
[2016-11-06 14:54] LABS: APPEARANCE,URINE CLEAR; BILIRUBIN,URINE NEGATIVE (NEGATIVE); GLUCOSE, URINE NEGATIVE (NEGATIVE); KETONES,URINE NEGATIVE (NEGATIVE); LEUKOCYTE ESTERASE,URINE NEGATIVE (NEGATIVE); NITRITE,URINE NEGATIVE (NEGATIVE); PROTEIN,URINE NEGATIVE (NEGATIVE); URINE SPECIFIC GRAVITY 1.009; UROBILINOGEN,URINE NEGATIVE mg/dL (<2.0)
--- NOTE | 2016-11-06 16:05 | EKG REPORT ---
SEVERITY:- OTHERWISE NORMAL ECG - SINUS RHYTHM BORDERLINE LEFT AXIS DEVIATION : Confirmed by: Rocio Duckworth MD 06-Nov-2016 16:05:00
--- NOTE | 2016-11-06 16:45 | PDOC CONSULTATION ---
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 EMS and patient's reports the patient did fall from her walker to the floor. She did not hit her head or lose consciousness. She has been complaining of left hip pain since the fall. Of note she is recently also had an increasing cough and family is concerned about possible pneumonia. No fevers. Patient noted to have left hip fracture. I been asked to evaluate patient in preop clearance. There is history of prior stroke and possible prior myocardial infarction. Past Medical History Cardiac Medical History: Reports: Atrial Fibrillation, Coronary Artery Disease, Hypertension Pulmonary Medical History: Reports: Chronic Obstructive Pulmonary Disease (COPD ) - On record Endocrine Medical History: Reports: Diabetes Mellitus Type 1, Diabetes Mellitus Type 2 GI Medical History: Reports: Gastroesophageal Reflux Disease Psychiatric Medical History: Reports: Depression Past Surgical History Past Surgical History: Reports: Mastectomy - Right nephrectomy, Vascular Surgery - Right fem-pop bypass, Left vein harvesting Social History Information Source: Parent Smoking Status: Unknown if Ever Smoked Frequency of Alcohol Use: None Hx Recreational Drug Use: No Drugs: None Hx Prescription Drug Abuse: No - Advance Directive Resuscitation Status: Full Code Family History Family History: CAD, DM Parental Family History Reviewed: Yes Children Family History Reviewed: Yes Sibling(s) Family History Reviewed.: Yes Medication/Allergy Home Medications: Albuterol Sulfate [Proair HFA] 2 puff IH Q4 11/06/16 Cholecalciferol (Vitamin D3) [Vitamin D3 5000 unit Capsule] 5,000 unit PO VALDOVINOS Clopidogrel Bisulfate [Plavix 75 mg Tablet] 75 mg PO DAILY 11/06/16 Digoxin [Lanoxin 0.125 mg Tablet] 0.125 mg PO DAILY 11/06/16 Ezetimibe [Zetia 10 mg Tablet] 10 mg PO DAILY 11/06/16 Gabapentin [Neurontin 300 mg Capsule] 300 mg PO NOON 11/06/16 Gabapentin [Neurontin 300 mg Capsule] 300 mg PO QAM 11/06/16 Gabapentin [Neurontin 300 mg Capsule] 600 mg PO QHS 11/06/16 Insulin Aspart [Novolog Insulin (Aspart) 100 unit/mL] See Protocol SQ BID Insulin Glargine,Hum.rec.anlog [Lantus] 70 units SQ QAM 11/06/16 Isosorbide Mononitrate [Imdur 60 mg Tablet.er] 90 mg PO DAILY 11/06/16 Metoprolol Tartrate [Lopressor 100 mg Tablet] 100 mg PO Q12 11/06/16 Pantoprazole Sodium [Protonix] 40 mg PO DAILY 11/06/16 Paroxetine HCl [Paxil] 40 mg PO DAILY 11/06/16 Trazodone HCl [Desyrel] 100 mg PO QHS 11/06/16 Allergies/Adverse Reactions: No Known Allergies Allergy (Verified 09/25/16 20:26) Review of Systems Review of Systems: Please see history of present illness and past medical history as wall. Constitutional: No fever or chills reported. Head : No recent chronic headaches, recent head injury. Eyes: No recent eye pain, diplopia, redness, discharge, acute visual changes. Ears: No recent chronic ear pain, acute hearing loss, ear discharge. Oral cavity: No recent ulcerations, bleeding, oral cavity discomfort. Neck: No recent acute neck pain reported. Hematologic: No recent easy bruising or bleeding or hematologic malignancy reported. History of mastectomy Lymphatic: No recent lymphatic malignancy, chronic lymphadenopathy reported yet Cardiovascular system review: See history of present illness. History of PVD, non-STEMI. Respiratory system review: No recent chronic cough, hemoptysis, blood clots in the lungs reported. Mild Shortness of breath on exertion Gastrointestinal system review: Negative for any recent acute or chronic abdominal pain, hematemesis, melena, recent change in bowel habits. Genitourinary system review: No recent acute or chronic hematuria, flank pain, UTI etc. reported. Skin system review: Negative for any recent abnormal bruising, no rash, no pruritus reported. Neurologic: History of prior history of strokes, mini strokes with residual aphasia and right-sided weakness, but no seizure disorder. Psychologic: No history of major psychosis or major depression reported. Musculoskeletal: Minor aches and pains reported. No acute joint swelling reported. Endocrine: No recent polyuria, polydipsia, recent heat or cold intolerance. Physical Exam Vital Signs: Temp Pulse Resp BP Pulse Ox 98.3 F 27 H 149/47 H 97 11/06/16 08:41 11/06/16 16:01 11/06/16 16:01 11/06/16 16:01 Exam: GENERAL: well-nourished and in no acute distress. Alert and oriented x3 HEAD: Atraumatic, normocephalic. EYES: Pupils equal round and reactive to light, extraocular movements intact, sclera anicteric, conjunctiva are normal. ENT: TMs normal, nares patent, oropharynx clear without exudates. Moist mucous membranes. No oral ulcerations or bleeding gums noted NECK: supple without lymphadenopathy. Trachea is central. No cervical or axillary lymphadenopathy noted. Carotids are 2+, JVD WNL LUNGS: Respiration seems nonlabored, no significant accessory muscle action noted. Breath sounds clear to auscultation bilaterally and equal noted. No wheezes rales or rhonchi noted. No significant dullness noted on percussion. CHEST: Palpation of the chest wall shows no significant chest wall tenderness. No other significant abnormalities noted. 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 ABDOMEN: Soft, no significant tenderness appreciated, normoactive bowel sounds. No guarding, no rebound. No rigidity noted . No masses appreciated. EXTREMITIES: Pedal pulses are 1-2+, no calf tenderness noted. No clubbing or cyanosis.trace to 1+ pedal edema noted NEUROLOGICAL: Focused neurological exam showed dysphasia and mild right-sided weakness especially upper and lower extremity, left lower extremity strength not checked. PSYCH: Normal mood, normal affect. Judgment and insight within normal limits. SKIN: No significant ecchymosis, rash, ulcerations or signs of pruritus noted. MUSCULOSKELETAL EXAM: No significant joint swelling noted. Results Laboratory Results: 11/06/16 11/06/16 14:40 14:55 TSH 1.87 Urine Color YELLOW Urine Appearance CLEAR Urine pH 7.0 Ur Specific [place] 1.009 Urine Protein NEGATIVE Urine Glucose (UA) NEGATIVE Urine Ketones NEGATIVE Urine Blood NEGATIVE Urine Nitrite NEGATIVE Ur Leukocyte Esterase NEGATIVE Urine WBC (Auto) 1 Urine RBC (Auto) 1 11/06/16 14:55 Troponin I < 0.012 EKG Comments: Sinus rhythm, no acute ST-T wave changes noted Impressions: Chest X-Ray 11/06/16 10:01 IMPRESSION: NO ACUTE RADIOGRAPHIC FINDING IN THE CHEST. Hip X-Ray 11/06/16 10:01 IMPRESSION: Acute left intertrochanteric proximal femoral fracture with mild varus angulation Assessment & Plan - Diagnosis (1) Closed left hip fracture Qualifiers: Encounter type: initial encounter Qualified Code(s): S72.002A - Fracture of unspecified part of neck of left femur, initial encounter for closed fracture Is this a current diagnosis for this admission?: Yes (2) Congestive heart failure Qualifiers: Congestive heart failure type: diastolic Congestive heart failure chronicity: chronic Qualified Code(s): I50.32 - Chronic diastolic ( congestive) heart failure Is this a current diagnosis for this admission?: Yes (3) HTN (hypertension) Qualifiers: Hypertension type: essential hypertension Qualified Code(s): I10 - Essential (primary) hypertension Is this a current diagnosis for this admission?: Yes (4) Atrial fibrillation Qualifiers: Atrial fibrillation type: paroxysmal Qualified Code(s): I48.0 - Paroxysmal atrial fibrillation Is this a current diagnosis for this admission?: Yes (5) CAD (coronary artery disease) Qualifiers: Coronary Disease-Associated Artery/Lesion type: [place] artery [place] vs. transplanted heart: [place] heart Associated angina: without angina Qualified Code(s): I25.10 - Atherosclerotic heart disease of [place] coronary artery without angina pectoris Is this a current diagnosis for this admission?: Yes (6) Diabetes mellitus type 2, controlled, without complications Qualifiers: Diabetes mellitus senior care insulin use: unspecified terminologist insulin use status Qualified Code(s): E11.9 - Type 2 diabetes mellitus without complications Is this a current diagnosis for this admission?: Yes (7) PAD (peripheral artery disease) Is this a current diagnosis for this admission?: Yes (8) Valvular heart disease Is this a current diagnosis for this admission?: YesPlan: Patient has mitral regurgitation and aortic stenosis. To be further evaluated with a 2-D echocardiogram. In fact was evaluated by echocardiogram. Peak gradient across the aortic valve was noted to be 28 mmHg. Calculated valve area is 1.[address] the aortic valve and [id number] category. In addition patient has mild to moderate mitral regurgitation. Patient has dense calcification of both the aortic and mitral valves. - Notes Notes: Closed left hip fracture: Patient is ambulatory with walker. Patient would benefit from hip surgery. Currently patient has been chest pain-free. Patient is denying any dyspnea. Patient maintaining sinus rhythm. Patient felt to be higher than average risk but not in the prohibitive range. Patient therefore cleared for surgery. Patient will benefit from DVT prophylaxis, pain control, pulmonary toilet and cardiac monitoring at least for 48 hours post surgery. Will follow patient. Congestive heart failure: [place] to be from diastolic dysfunction. Patient will benefit from an denying baseline diuretic therapy, salt and fluid restriction. Agree with obtaining 2-D echo. Hypertension: Currently blood pressure in stable range. Agree with continuing beta jaxon, recommend GERMAN inhibitor and continuing nitrate therapy. Coronary artery disease: Symptomatically stable. Patient does have significant coronary calcification. Patient has previous enzyme elevation but states about 3 months ago. Current cardiac enzymes are negative. Diabetes: Recommend good control of blood sugar. However should avoid any hypoglycemia. Patient being expertly managed by primary care M.D. Peripheral vascular disease: No chest signs of tissue hypoperfusion noted. Continue with antiplatelet therapy. Plavix on hold for surgery but recommend restarting it when feasible. Atrial fibrillation: Patient gives history of patient having atrial fibrillation. In view of prior stroke, unless it was hemorrhagic, patient will benefit from chronic anticoagulation. Will review previous records. - Time Time Spent: 30 to 50 Minutes - CODE STATUS was discussed, patient remains full code. Surrogate decision-maker patient's . Multiple medical problems were addressed.More than 50% of the time spent coordinating care, discussing management plans with involved caregivers. Management plans discussed with involved personnels. Medical decision making was of moderate complexity.
--- NOTE | 2016-11-06 17:33 | XCELERA REPORT ---
[address] [address] Transthoracic Echocardiogram Report Name: REI ROBLES Age: 81 yrs Gender: Female : 1935 Patient Status: Inpatient Patient Location: \S\[facility]\S\A Study Date: 11/06/2016 03:31 PM Procedure: A complete two-dimensional transthoracic echocardiogram was performed (2D, M-mode, spectral and color flow Doppler). The study was technically difficult with many images being suboptimal in quality. Reason For Study: preop hx nonSTEMI Ordering Physician: CARLO PLAZA Performed By: Hoda Young Interpretation Summary The study was technically difficult with many images being suboptimal in quality. The left ventricular ejection fraction is normal. Doppler measurements suggest pseudonormalized left ventricular relaxation, which is associated with grade II/IV or mild to moderate diastolic dysfunction There is mild concentric left ventricular hypertrophy. The left ventricle is grossly normal size. Wall motion cannot be accurately commented on, but no definite regional wall motion abnormalities noted. The right ventricular systolic function is normal. The left atrium is borderline dilated. The right atrium is normal in size There is mild mitral stenosis There is a mild to moderate amount of mitral regurgitation There is mild to moderate aortic stenosis There is a peak gradient of 25-30 mm of Hg. There is a trace amount of aortic regurgitation There is a trace or physiologic amount of tricuspid regurgitation Tricuspid regurgitation jet envelope not well defined to measure RV systolic pressure accurately. The aortic root is not well visualized. The inferior vena cava appeared normal and decreased < 50% with respiration (RAP 10-15 mmHg) There is no pericardial effusion. MMode/2D Measurements \T\ Calculations RVDd: 2.3 cm LVIDd: 5.0 cmFS: 29.1 % Ao root diam: 3.2 cm IVSd: 1.0 cm LVIDs: 3.5 cmEDV(Teich): 117.8 ml Ao root area: 7.9 cm2 LVPWd: 1.0 cmESV(Teich): 52.1 ml LA dimension: 3.5 cm EF(Teich): 55.7 % LVOT diam: 2.1 cm LVOT area: 3.4 cm2 Doppler Measurements \T\ Calculations MV E max levy: MV P1/2t max levy: Ao V2 max: LV V1 max P.5 cm/sec 143.1 cm/sec 262.8 cm/sec 5.3 mmHg MV A max levy: MV P1/2t: 74.4 msec Ao max PG: LV V1 mean P.4 cm/sec 27.7 mmHg 3.0 mmHg MV E/A: 1.0 MVA(P1/2t): 3.0 cm2 Ao V2 mean: LV V1 max: MV dec slope: 187.0 cm/sec 114.7 cm/sec 563.7 cm/sec2 Ao mean PG: LV V1 mean: 15.0 mmHg 80.0 cm/sec Ao V2 VTI: LV V1 VTI: 58.4 cm 24.2 cm KENTRELL(I,D): 1.4 cm2 KENTRELL(V,D): 1.5 cm2 SV(LVOT): 82.7 ml PA V2 max: 86.9 cm/sec PA max P.0 mmHg Left Ventricle The left ventricle is grossly normal size. There is mild concentric left ventricular hypertrophy. The left ventricular ejection fraction is normal. Doppler measurements suggest pseudonormalized left ventricular relaxation, which is associated with grade II/IV or mild to moderate diastolic dysfunction. Wall motion cannot be accurately commented on, but no definite regional wall motion abnormalities noted. Right Ventricle The right ventricle is grossly normal size. There is normal right ventricular wall thickness. The right ventricular systolic function is normal. Atria The right atrium is normal in size. The left atrium is borderline dilated. Interarterial septum not well visualized and not well dopplered. Cannot comment on ASD/PFO presence. Mitral Valve There is severe mitral annular calcification. There is moderate mitral leaflet calcification. There is mild mitral stenosis. There is a mild to moderate amount of mitral regurgitation. Aortic Valve The aortic valve is moderately calcified. There is mild to moderate aortic stenosis. There is a peak gradient of 25-30 mm of Hg. There is a trace amount of aortic regurgitation. Tricuspid Valve The tricuspid valve is not well visualized secondary to technical limitations. There is no tricuspid stenosis. There is a trace or physiologic amount of tricuspid regurgitation. Tricuspid regurgitation jet envelope not well defined to measure RV systolic pressure accurately. Pulmonic Valve The pulmonic valve is not well visualized. Great Vessels The aortic root is not well visualized. The inferior vena cava appeared normal and decreased < 50% with respiration (RAP 10-15 mmHg). Effusions There is no pericardial effusion. : CARLO PLAZA > Ayaka De León
[2016-11-06] MEDS ORDERED: ALBUTEROL SULFATE HFA (90 MCG/PUFF) 8 GM MDI (1 MDI/ER DISP) IH SCH (18:00)
[2016-11-06] MEDS ORDERED: ALBUTEROL SULFATE HFA (90 MCG/PUFF) 200 PUFF/8.5 GM MDI IH ONE ×2 (18:45→22:16)
[2016-11-06] MEDS: ALBUTEROL SULFATE HFA (90 MCG/PUFF) 200 PUFF/8.5 GM MDI IH SCH ×2 (18:56→22:30)
[2016-11-06] MEDS: METOPROLOL TARTRATE 100 MG TABLET PO SCH (21:58)
[2016-11-06] MEDS: TRAZODONE HCL 50 MG TABLET PO SCH (21:58)
[2016-11-06] MEDS: FAMOTIDINE INJ/PF 20 MG/2 ML SDV IV SCH (21:58)
[2016-11-06] MEDS: GABAPENTIN 300 MG CAPSULE PO SCH (21:59)
[2016-11-06] MEDS ORDERED: (PENDING PHARMACY ID) (Trazodone Hcl [Desyrel] 100 MG) PO SCH (22:00)
[2016-11-06] MEDS: INSULIN LISPRO 100 UNIT/ML 3 ML VIAL SUBCUT PRN (22:09)
[2016-11-07] MEDS: ALBUTEROL SULFATE HFA (90 MCG/PUFF) 200 PUFF/8.5 GM MDI IH SCH ×6 (02:26→21:08)
[2016-11-07 03:21] LABS: ABSOLUTE EOSINOPHILS # (AUTO) 0.2 10^3/uL (0.0-0.6); ABSOLUTE LYMPHOCYTES (AUTO) 1.2 10^3/uL (0.5-4.7); ABSOLUTE MONOCYTES (AUTO) 0.8 10^3/uL (0.1-1.4); ABSOLUTE NEUT (AUTO) 9.1 10^3/uL (1.7-8.2); BASOPHILS % (AUTO) 0.4 % (0-2); HEMATOCRIT 34.7 % (36.0-47.0); HEMOGLOBIN 11.2 g/dL (12.0-15.5); HGB HCT DIFFERENCE -1.1; LYMPHOCYTES % (AUTO) 10.5 % (13-45); MEAN CORPUSCULAR HGB CONC 32.4 g/dL (32.0-36.0); MEAN CORPUSCULAR VOLUME 86 fl (80-97); MONOCYTES % (AUTO) 7.3 % (3-13); RED BLOOD COUNT 4.01 10^6/uL (3.72-5.28); RED CELL DISTRIBUTION WIDTH 14.3 % (11.5-14.0); SEGMENTED NEUTROPHILS % (AUTO) 79.8 % (42-78); WHITE BLOOD COUNT 11.4 10^3/uL (4.0-10.5)
[2016-11-07 03:34] LABS: ALANINE AMINOTRANSFERASE 38 U/L (9-52); ALBUMIN 2.6 g/dL (3.5-5.0); ALKALINE PHOSPHATASE 61 U/L (38-126); ANION GAP 8 (5-19); ASPARTATE AMINO TRANSFERASE 19 U/L (14-36); BILIRUBIN,TOTAL 0.7 mg/dL (0.2-1.3); BLOOD UREA NITROGEN 20 mg/dL (7-20); CALCIUM 8.4 mg/dL (8.4-10.2); CARBON DIOXIDE 30 mmol/L (22-30); CHLORIDE 100 mmol/L (98-107); CHOLESTEROL 113.89 mg/dL (0-200); CREATININE RESULT 0.82 mg/dL (0.52-1.25); Direct HDL 30 mg/dL (>40); GLUCOSE 145 mg/dL (75-110); POTASSIUM 4.5 mmol/L (3.6-5.0); SODIUM 138.3 mmol/L (137-145); TRIGLYCERIDES 97 mg/dL (<150)
[2016-11-07 03:45] LABS: DIRECT LDL 66 mg/dL (<100)
--- NOTE | 2016-11-07 07:49 | PDOC CONSULTATION ---
Consultation Consult Date: 11/07/16 Consult reason:: Left hip fracture History of Present Illness Admission Date/PCP: 11/06/16 14:06 ANU ASTUDILLO Patient complains of: Left hip pain History of Present Illness: Patient is an 81-year-old white female who is a household ambulator with a walker who fell and sustained a left hip injury. She's been unable to ambulate and bear weight since that time. Past Medical History Cardiac Medical History: Reports: Atrial Fibrillation, Coronary Artery Disease, Hypertension Pulmonary Medical History: Reports: Chronic Obstructive Pulmonary Disease (COPD ) - On record Endocrine Medical History: Reports: Diabetes Mellitus Type 1, Diabetes Mellitus Type 2 GI Medical History: Reports: Gastroesophageal Reflux Disease Psychiatric Medical History: Reports: Depression Past Surgical History Past Surgical History: Reports: Mastectomy - Right nephrectomy, Vascular Surgery - Right fem-pop bypass, Left vein harvesting Social History Lives with: Spouse/Significant other Smoking Status: Unknown if Ever Smoked Frequency of Alcohol Use: None Hx Recreational Drug Use: No Drugs: None Hx Prescription Drug Abuse: No - Advance Directive Resuscitation Status: Full Code Family History Family History: CAD, DM Parental Family History Reviewed: No Children Family History Reviewed: No Sibling(s) Family History Reviewed.: No Medication/Allergy Home Medications: Albuterol Sulfate [Proair HFA] 2 puff IH Q4 11/06/16 Cholecalciferol (Vitamin D3) [Vitamin D3 5000 unit Capsule] 5,000 unit PO VALDOVINOS Clopidogrel Bisulfate [Plavix 75 mg Tablet] 75 mg PO DAILY 11/06/16 Digoxin [Lanoxin 0.125 mg Tablet] 0.125 mg PO DAILY 11/06/16 Ezetimibe [Zetia 10 mg Tablet] 10 mg PO DAILY 11/06/16 Gabapentin [Neurontin 300 mg Capsule] 300 mg PO NOON 11/06/16 Gabapentin [Neurontin 300 mg Capsule] 300 mg PO QAM 11/06/16 Gabapentin [Neurontin 300 mg Capsule] 600 mg PO QHS 11/06/16 Insulin Aspart [Novolog Insulin (Aspart) 100 unit/mL] See Protocol SQ BID Insulin Glargine,Hum.rec.anlog [Lantus] 70 units SQ QAM 11/06/16 Isosorbide Mononitrate [Imdur 60 mg Tablet.er] 90 mg PO DAILY 11/06/16 Metoprolol Tartrate [Lopressor 100 mg Tablet] 100 mg PO Q12 11/06/16 Pantoprazole Sodium [Protonix] 40 mg PO DAILY 11/06/16 Paroxetine HCl [Paxil] 40 mg PO DAILY 11/06/16 Trazodone HCl [Desyrel] 100 mg PO QHS 11/06/16 Allergies/Adverse Reactions: No Known Allergies Allergy (Verified 09/25/16 20:26) Review of Systems All systems: as per PMH Physical Exam Vital Signs: Temp Pulse Resp BP Pulse Ox 37.5 C 74 16 145/42 H 92 11/07/16 04:38 11/07/16 04:38 11/07/16 04:38 11/07/16 04:38 11/07/16 04:38 Intake & Output 11/06/16 11/07/16 11/08/16 06:59 06:59 06:59 Intake Total 1050 Output Total 2750 Balance -1700 Weight 80 kg General appearance: PRESENT: no acute distress, well-nourished Head exam: PRESENT: normocephalic Respiratory exam: PRESENT: unlabored Cardiovascular exam: PRESENT: RRR Pulses: PRESENT: +1 pedal pulses bilateral Vascular exam: PRESENT: normal capillary refill GI/Abdominal exam: PRESENT: soft Rectal exam: PRESENT: deferred Extremities exam: PRESENT: other - Left lower extremity is held actually rotated. Any attempts at passive range of motion at elicit pain. This brisk capillary refill. Neurological exam: PRESENT: alert, aphasic Results Laboratory Results: 11/07/16 03:14 11/07/16 03:14 11/06/16 11/06/16 11/07/16 14:40 14:55 03:14 WBC 11.4 H RBC 4.01 Hgb 11.2 L Hct 34.7 L MCV 86 MCH 28.0 MCHC 32.4 RDW 14.3 H Plt Count 151 Seg Neutrophils % 79.8 H Lymphocytes % 10.5 L Monocytes % 7.3 Eosinophils % 2.0 Basophils % 0.4 Absolute Neutrophils 9.1 H Absolute Lymphocytes 1.2 Absolute Monocytes 0.8 Absolute Eosinophils 0.2 Absolute Basophils 0.0 Sodium Potassium Chloride Carbon Dioxide Anion Gap BUN Creatinine Est GFR ( Amer) Est GFR (Non-Af Amer) Glucose Calcium Total Bilirubin AST ALT Alkaline Phosphatase Total Protein Albumin Triglycerides Cholesterol LDL Cholesterol Direct VLDL Cholesterol HDL Cholesterol TSH 1.87 Urine Color YELLOW Urine Appearance CLEAR Urine pH 7.0 Ur Specific [place] 1.009 Urine Protein NEGATIVE Urine Glucose (UA) NEGATIVE Urine Ketones NEGATIVE Urine Blood NEGATIVE Urine Nitrite NEGATIVE Ur Leukocyte Esterase NEGATIVE Urine WBC (Auto) 1 Urine RBC (Auto) 1 11/07/16 03:14 WBC RBC Hgb Hct MCV MCH MCHC RDW Plt Count Seg Neutrophils % Lymphocytes % Monocytes % Eosinophils % Basophils % Absolute Neutrophils Absolute Lymphocytes Absolute Monocytes Absolute Eosinophils Absolute Basophils Sodium 138.3 Potassium 4.5 Chloride 100 Carbon Dioxide 30 Anion Gap 8 BUN 20 Creatinine 0.82 Est GFR ( Amer) > 60 Est GFR (Non-Af Amer) > 60 Glucose 145 H Calcium 8.4 Total Bilirubin 0.7 AST 19 ALT 38 Alkaline Phosphatase 61 Total Protein 5.0 L Albumin 2.6 L Triglycerides 97 Cholesterol 113.89 LDL Cholesterol Direct 66 VLDL Cholesterol 19.0 HDL Cholesterol 30 L TSH Urine Color Urine Appearance Urine pH Ur Specific [place] Urine Protein Urine Glucose (UA) Urine Ketones Urine Blood Urine Nitrite Ur Leukocyte Esterase Urine WBC (Auto) Urine RBC (Auto) 11/06/16 11/06/16 11/07/16 14:55 20:10 03:14 Troponin I < 0.012 < 0.012 < 0.012 Impressions: Chest X-Ray 11/06/16 10:01 IMPRESSION: NO ACUTE RADIOGRAPHIC FINDING IN THE CHEST. Hip X-Ray 11/06/16 10:01 IMPRESSION: Acute left intertrochanteric proximal femoral fracture with mild varus angulation Status: Imported from PACS Assessment & Plan - Diagnosis (1) Fracture, intertrochanteric, left femur Is this a current diagnosis for this admission?: YesPlan: 81-year-old white female with multiple comorbidities, but a functional household ambulator walker now with a left intratrochanteric fracture. I think she be best served with an open reduction internal fixation. This will be scheduled under choice anesthesia pending medical clearance and or availability - Time Time Spent: 50 to 70 Minutes Critical Time spent with patient: 15-24 minutes Anticipated discharge: SNF Within: within 48 hours
[2016-11-07] MEDS ORDERED: NORMAL SALINE 1000 ML 1,000 ML IV PRN (08:26)
[2016-11-07] MEDS ORDERED: FENTANYL CITRATE INJ/PF 100 MCG/2 ML AMPUL ONE (08:51)
[2016-11-07] MEDS ORDERED: MIDAZOLAM 2 MG/2 ML INJ ONE (08:52)
[2016-11-07] MEDS ORDERED: PROPOFOL INJ 200 MG/20 ML VIAL IV ONE (08:52)
[2016-11-07] MEDS ORDERED: EPHEDRINE SULFATE INJ 50 MG/1 ML AMPULE ONE (08:52)
[2016-11-07] MEDS ORDERED: ACETAMINOPHEN 100 ML IV ONE (08:52)
[2016-11-07] MEDS ORDERED: CEFAZOLIN INJ 1 GM VIAL ONE (09:00)
[2016-11-07] MEDS ORDERED: OXYCODONE-ACETAMINOPHEN 5-325 MG TABLET PO PRN ×2 (09:55)
[2016-11-07] MEDS ORDERED: DIPHENHYDRAMINE HCL 50 MG/ML VIAL IV PRN ×2 (09:55→14:28)
[2016-11-07] MEDS ORDERED: MEPERIDINE HCL/PF INJ 25 MG/1 ML DISP.SYRIN IV PRN ×2 (09:55→14:28)
[2016-11-07] MEDS ORDERED: MORPHINE SULFATE 10 MG/ML INJ IV PRN ×2 (09:55→13:02)
[2016-11-07] MEDS ORDERED: FENTANYL CITRATE INJ/PF 100 MCG/2 ML AMPUL IV PRN ×5 (09:55→14:28)
[2016-11-07] MEDS ORDERED: PROMETHAZINE HCL INJ 25 MG/1 ML VIAL IV PRN ×3 (09:55→14:28)
[2016-11-07] MEDS ORDERED: CHOLECALCIFEROL (D3) 1,000 UNIT TABLET PO SCH (10:00)
--- NOTE | 2016-11-07 10:06 | Operative Report ---
Operative Report DATE OF SURGERY: 11/07/16 PREOPERATIVE DIAGNOSIS: Left intratrochanteric femur fracture OPERATION: Open reduction internal fixation SURGEON: UBALDO FREY ANESTHESIA: Spinal ESTIMATED BLOOD LOSS: on 100 PROCEDURE: Implants used: Naselle gamma 3 nail 360mm x 11mm x 130, 100 mm proximal interlock, 50 mm distal interlock. Procedure: With the patient supine on the fracture table left lower extremity is delayed. Under fluoroscopic guidance to effect a near-anatomic reduction. Subsequently, the left lower extremity is prepped and draped in a sterile fashion. The patient is placed percutaneously down to the greater trochanter to the proximal metadiaphysis of the femur. A combined reamers used to fashion a cortical opening. Nail length is measured to be 360 mm. Subsequent 3 60 x 11 x 130 nails advanced over ball-tipped guide hailey down to the suprapatellar region. Under fluoroscopic guidance a proximal pin interlock is then placed. This measures 100 mm. The path is then reamed and 100 mm proximal interlock is introduced and locked from above. Under fluoroscopic guidance freehand. Drill was placed through the distal dynamic hole. Length is measured to be 50 mm. Subcutaneous a 5 mm x 50 mm screws placed through the distal dynamic interlock. The fracture reduction and hardware placement are again assessed fluoroscopically and felt to be adequate. The 3 incisions are irrigated and closed using a Vicryl followed by gianna. Sterile compressive dressings are applied and the patient's returned to the PACU.
[2016-11-07] MEDS ORDERED: PHENYLEPHRINE HCL INJ/PF 10 MG/1 ML SDV ONE (11:36)
[2016-11-07] MEDS ORDERED: DEXAMETHASONE SOD PHOSPHATE INJ 4 MG/1 ML VIAL ONE (11:36)
[2016-11-07] MEDS ORDERED: LIDOCAINE 2% INJ-PF (20 MG/ML) 10 ML AMPUL ONE (11:36)
[2016-11-07] MEDS ORDERED: ONDANSETRON HCL INJ/PF 4 MG/2 ML SDV ONE (11:36)
[2016-11-07] MEDS ORDERED: RINGERS SOLUTION,LACTATED 1,000 ML IV PRN (12:14)
[2016-11-07] MEDS: ISOSORBIDE MONONITRATE 60 MG TAB.ER.24H PO SCH (12:58)
[2016-11-07] MEDS: PAROXETINE HCL 20 MG TABLET PO SCH (12:59)
[2016-11-07] MEDS: GABAPENTIN 300 MG CAPSULE PO SCH ×3 (12:59→21:06)
[2016-11-07] MEDS: LANSOPRAZOLE 30 MG TAB.RAP.DR PO SCH (13:00)
[2016-11-07] MEDS: METOPROLOL TARTRATE 100 MG TABLET PO SCH ×2 (13:00→21:07)
[2016-11-07] MEDS: DIGOXIN 0.125 MG TABLET PO SCH (13:00)
--- NOTE | 2016-11-07 13:03 | PDOC PROGRESS REPORT ---
Subjective Progress Note for:: 11/07/16 Subjective:: Patient seems to be doing better. Patient is status post hip surgery. She just had surgery of her left hip. Pt is denying any chest arm or neck discomfort. Patient denying any PND, orthopnea. Patient denied any sustained palpitations, dizziness, syncope, near syncope. Patient denying any fever chills. Patient denying any other significant discomfort. Patient is maintaining sinus rhythm. Review of systems: Rest review of systems negative. Medications: Medications have been reviewed. Physical Exam Vital Signs: Temp Pulse Resp BP Pulse Ox 97.4 F 74 20 106/40 L 93 11/07/16 12:07 11/07/16 12:07 11/07/16 12:07 11/07/16 12:07 11/07/16 12:07 Intake & Output 11/06/16 11/07/16 11/08/16 06:59 06:59 06:59 Intake Total 1050 950 Output Total 2750 700 Balance -1700 250 Weight 80 kg Exam: GENERAL: well-nourished and in no acute distress. Alert and oriented x3 HEAD: Atraumatic, normocephalic. EYES: Pupils equal round and reactive to light, extraocular movements intact, sclera anicteric, conjunctiva are normal. ENT: TMs normal, nares patent, oropharynx clear without exudates. Moist mucous membranes. No oral ulcerations or bleeding gums noted NECK: supple without lymphadenopathy. Trachea is central. No cervical or axillary lymphadenopathy noted. Carotids are 2+, JVD WNL LUNGS: Respiration seems nonlabored, no significant accessory muscle action noted. Breath sounds clear to auscultation bilaterally and equal noted. No wheezes rales or rhonchi noted. No significant dullness noted on percussion. CHEST: Palpation of the chest wall shows no significant chest wall tenderness. No other significant abnormalities noted. 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 ABDOMEN: Soft, no significant tenderness appreciated, normoactive bowel sounds. No guarding, no rebound. No rigidity noted . No masses appreciated. EXTREMITIES: Pedal pulses are 1-2+, no calf tenderness noted. No clubbing or cyanosis.trace to 1+ pedal edema noted NEUROLOGICAL: Focused neurological exam showed dysphasia and mild right-sided weakness especially upper and lower extremity, left lower extremity strength not checked. PSYCH: Normal mood, normal affect. Judgment and insight within normal limits. SKIN: No significant ecchymosis, rash, ulcerations or signs of pruritus noted. MUSCULOSKELETAL EXAM: No significant joint swelling noted. Results Laboratory Results: 11/07/16 03:14 11/07/16 03:14 11/06/16 11/06/16 11/07/16 14:40 14:55 03:14 WBC 11.4 H RBC 4.01 Hgb 11.2 L Hct 34.7 L MCV 86 MCH 28.0 MCHC 32.4 RDW 14.3 H Plt Count 151 Seg Neutrophils % 79.8 H Lymphocytes % 10.5 L Monocytes % 7.3 Eosinophils % 2.0 Basophils % 0.4 Absolute Neutrophils 9.1 H Absolute Lymphocytes 1.2 Absolute Monocytes 0.8 Absolute Eosinophils 0.2 Absolute Basophils 0.0 Sodium Potassium Chloride Carbon Dioxide Anion Gap BUN Creatinine Est GFR ( Amer) Est GFR (Non-Af Amer) Glucose Calcium Total Bilirubin AST ALT Alkaline Phosphatase Total Protein Albumin Triglycerides Cholesterol LDL Cholesterol Direct VLDL Cholesterol HDL Cholesterol TSH 1.87 Urine Color YELLOW Urine Appearance CLEAR Urine pH 7.0 Ur Specific [place] 1.009 Urine Protein NEGATIVE Urine Glucose (UA) NEGATIVE Urine Ketones NEGATIVE Urine Blood NEGATIVE Urine Nitrite NEGATIVE Ur Leukocyte Esterase NEGATIVE Urine WBC (Auto) 1 Urine RBC (Auto) 1 11/07/16 03:14 WBC RBC Hgb Hct MCV MCH MCHC RDW Plt Count Seg Neutrophils % Lymphocytes % Monocytes % Eosinophils % Basophils % Absolute Neutrophils Absolute Lymphocytes Absolute Monocytes Absolute Eosinophils Absolute Basophils Sodium 138.3 Potassium 4.5 Chloride 100 Carbon Dioxide 30 Anion Gap 8 BUN 20 Creatinine 0.82 Est GFR ( Amer) > 60 Est GFR (Non-Af Amer) > 60 Glucose 145 H Calcium 8.4 Total Bilirubin 0.7 AST 19 ALT 38 Alkaline Phosphatase 61 Total Protein 5.0 L Albumin 2.6 L Triglycerides 97 Cholesterol 113.89 LDL Cholesterol Direct 66 VLDL Cholesterol 19.0 HDL Cholesterol 30 L TSH Urine Color Urine Appearance Urine pH Ur Specific [place] Urine Protein Urine Glucose (UA) Urine Ketones Urine Blood Urine Nitrite Ur Leukocyte Esterase Urine WBC (Auto) Urine RBC (Auto) 11/06/16 11/06/16 11/07/16 14:55 20:10 03:14 Troponin I < 0.012 < 0.012 < 0.012 Impressions: Chest X-Ray 11/06/16 10:01 IMPRESSION: NO ACUTE RADIOGRAPHIC FINDING IN THE CHEST. Fluoroscopy 11/07/16 00:00 IMPRESSION: Please see combined report for performance of procedure and radiologic supervision and interpretation. Hip X-Ray 11/07/16 00:00 IMPRESSION: IMAGE(S) OBTAINED DURING PROCEDURE. Assessment & Plan - Diagnosis (1) Closed left hip fracture Qualifiers: Encounter type: initial encounter Qualified Code(s): S72.002A - Fracture of unspecified part of neck of left femur, initial encounter for closed fracture Is this a current diagnosis for this admission?: Yes (2) Congestive heart failure Qualifiers: Congestive heart failure type: diastolic Congestive heart failure chronicity: chronic Qualified Code(s): I50.32 - Chronic diastolic ( congestive) heart failure Is this a current diagnosis for this admission?: Yes (3) HTN (hypertension) Qualifiers: Hypertension type: essential hypertension Qualified Code(s): I10 - Essential (primary) hypertension Is this a current diagnosis for this admission?: Yes (4) Atrial fibrillation Qualifiers: Atrial fibrillation type: paroxysmal Qualified Code(s): I48.0 - Paroxysmal atrial fibrillation Is this a current diagnosis for this admission?: Yes (5) CAD (coronary artery disease) Qualifiers: Coronary Disease-Associated Artery/Lesion type: [place] artery [place] vs. transplanted heart: [place] heart Associated angina: without angina Qualified Code(s): I25.10 - Atherosclerotic heart disease of [place] coronary artery without angina pectoris Is this a current diagnosis for this admission?: Yes (6) Diabetes mellitus type 2, controlled, without complications Qualifiers: Diabetes mellitus manager long term care insulin use: unspecified usp insulin use status Qualified Code(s): E11.9 - Type 2 diabetes mellitus without complications Is this a current diagnosis for this admission?: Yes (7) PAD (peripheral artery disease) Is this a current diagnosis for this admission?: Yes (8) Valvular heart disease Is this a current diagnosis for this admission?: Yes - Notes Notes: Patient is now status post left hip surgery with internal fixation. Patient has done well. She is denying any postop chest pain. Congestive heart failure: Clinically compensated. Atrial fibrillation: Currently maintaining sinus rhythm. Patient has paroxysmal A. fib. Recommend resuming chronic anticoagulation. Coronary artery disease: Symptomatically stable. Diabetes: Recommend good control of blood sugar. However should avoid any hypoglycemia. Patient being expertly managed by primary care Maximilian Peripheral vascular disease: Currently stable. No signs of tissue underperfusion. Valvular heart disease: Currently stable. - Time Time with patient: 15-25 minutes - CODE STATUS was discussed, patient remains full code. Surrogate decision-maker unchanged. Multiple medical problems were addressed.More than 50% of the time spent coordinating care, discussing management plans with involved caregivers. Management plans discussed with involved personnels. Medical decision making was of moderate complexity.
[2016-11-07] MEDS ORDERED: ONDANSETRON HCL INJ/PF 4 MG/2 ML SDV IV PRN (13:04)
--- NOTE | 2016-11-07 14:01 | PDOC PROGRESS REPORT ---
Subjective Progress Note for:: 11/07/16 Subjective:: Patient undergoing surgery today somewhat lethargic and confused when examined no chest pain or SOB Physical Exam Vital Signs: Temp Pulse Resp BP Pulse Ox 97.4 F 74 20 106/40 L 93 11/07/16 12:07 11/07/16 12:07 11/07/16 12:07 11/07/16 12:07 11/07/16 12:07 Intake & Output 11/06/16 11/07/16 11/08/16 00:59 00:59 00:59 Intake Total 300 1700 Output Total 950 2500 Balance -650 -800 Weight 79.9 kg 80 kg General appearance: PRESENT: no acute distress Head exam: PRESENT: atraumatic, normocephalic Eye exam: PRESENT: conjunctiva pink, EOMI, PERRLA. ABSENT: scleral icterus Neck exam: PRESENT: carotid bruit Respiratory exam: PRESENT: clear to auscultation [place]. ABSENT: rales, rhonchi, wheezes Cardiovascular exam: PRESENT: systolic murmur - grade 2/6 Pulses: PRESENT: normal dorsalis pedis pul GI/Abdominal exam: PRESENT: normal bowel sounds, soft. ABSENT: distended, guarding, mass, organolmegaly, rebound, tenderness Neurological exam: PRESENT: awake, CN II-XII grossly intact Results Laboratory Results: 11/07/16 03:14 11/07/16 03:14 11/06/16 11/06/16 11/07/16 14:40 14:55 03:14 WBC 11.4 H RBC 4.01 Hgb 11.2 L Hct 34.7 L MCV 86 MCH 28.0 MCHC 32.4 RDW 14.3 H Plt Count 151 Seg Neutrophils % 79.8 H Lymphocytes % 10.5 L Monocytes % 7.3 Eosinophils % 2.0 Basophils % 0.4 Absolute Neutrophils 9.1 H Absolute Lymphocytes 1.2 Absolute Monocytes 0.8 Absolute Eosinophils 0.2 Absolute Basophils 0.0 Sodium Potassium Chloride Carbon Dioxide Anion Gap BUN Creatinine Est GFR ( Amer) Est GFR (Non-Af Amer) Glucose Calcium Total Bilirubin AST ALT Alkaline Phosphatase Total Protein Albumin Triglycerides Cholesterol LDL Cholesterol Direct VLDL Cholesterol HDL Cholesterol TSH 1.87 Urine Color YELLOW Urine Appearance CLEAR Urine pH 7.0 Ur Specific [place] 1.009 Urine Protein NEGATIVE Urine Glucose (UA) NEGATIVE Urine Ketones NEGATIVE Urine Blood NEGATIVE Urine Nitrite NEGATIVE Ur Leukocyte Esterase NEGATIVE Urine WBC (Auto) 1 Urine RBC (Auto) 1 11/07/16 03:14 WBC RBC Hgb Hct MCV MCH MCHC RDW Plt Count Seg Neutrophils % Lymphocytes % Monocytes % Eosinophils % Basophils % Absolute Neutrophils Absolute Lymphocytes Absolute Monocytes Absolute Eosinophils Absolute Basophils Sodium 138.3 Potassium 4.5 Chloride 100 Carbon Dioxide 30 Anion Gap 8 BUN 20 Creatinine 0.82 Est GFR ( Amer) > 60 Est GFR (Non-Af Amer) > 60 Glucose 145 H Calcium 8.4 Total Bilirubin 0.7 AST 19 ALT 38 Alkaline Phosphatase 61 Total Protein 5.0 L Albumin 2.6 L Triglycerides 97 Cholesterol 113.89 LDL Cholesterol Direct 66 VLDL Cholesterol 19.0 HDL Cholesterol 30 L TSH Urine Color Urine Appearance Urine pH Ur Specific [place] Urine Protein Urine Glucose (UA) Urine Ketones Urine Blood Urine Nitrite Ur Leukocyte Esterase Urine WBC (Auto) Urine RBC (Auto) 11/06/16 11/06/16 11/07/16 14:55 20:10 03:14 Troponin I < 0.012 < 0.012 < 0.012 EKG Comments: SINUS RHYTHM [EMILY] . BORDERLINE LEFT AXIS DEVIATION Impressions: Chest X-Ray 11/06/16 10:01 IMPRESSION: NO ACUTE RADIOGRAPHIC FINDING IN THE CHEST. Fluoroscopy 11/07/16 00:00 IMPRESSION: Please see combined report for performance of procedure and radiologic supervision and interpretation. Hip X-Ray 11/07/16 00:00 IMPRESSION: IMAGE(S) OBTAINED DURING PROCEDURE. Assessment & Plan - Diagnosis (1) Congestive heart failure Qualifiers: Congestive heart failure type: diastolic Congestive heart failure chronicity: chronic Qualified Code(s): I50.32 - Chronic diastolic ( congestive) heart failure Is this a current diagnosis for this admission?: YesPlan: well compensated (2) Fracture, intertrochanteric, left femur Is this a current diagnosis for this admission?: Yes (3) HTN (hypertension) Qualifiers: Hypertension type: essential hypertension Qualified Code(s): I10 - Essential (primary) hypertension Is this a current diagnosis for this admission?: Yes (4) Valvular heart disease Is this a current diagnosis for this admission?: YesPlan: AO stenosis (5) Atrial fibrillation Qualifiers: Atrial fibrillation type: paroxysmal Qualified Code(s): I48.0 - Paroxysmal atrial fibrillation Is this a current diagnosis for this admission?: Yes - Time Time Spent with patient: Patient to undergosurgery later this moring continue cardiac monitoring prudent hydration will follow closely postop Time Spent with patient: 15-24 minutes
[2016-11-07] MEDS: IBUPROFEN 800 MG in NORMAL SALINE 250 ML IV SCH ×2 (14:05→21:15)
[2016-11-07] MEDS: EZETIMIBE 10 MG TABLET PO SCH (14:06)
[2016-11-07] MEDS: FAMOTIDINE INJ/PF 20 MG/2 ML SDV IV SCH ×2 (14:07→21:06)
[2016-11-07] MEDS: CEFAZOLIN 2 GM/D5W RTU 2 GM/50 ML RTUPB IV SCH (17:18)
[2016-11-07] MEDS: INSULIN LISPRO 100 UNIT/ML 3 ML VIAL SUBCUT PRN ×2 (17:48→22:24)
[2016-11-07] MEDS ORDERED: LACTULOSE SYRUP 20 GM/30 ML UDCUP PO ONE (20:38)
[2016-11-07] MEDS ORDERED: FUROSEMIDE INJ/PF 40 MG/4 ML SDV IV ONE (20:38)
[2016-11-07] MEDS ORDERED: IPRATROPIUM/ALBUTEROL 0.5-2.5 MG/3 ML AMPUL NEB PRN (20:39)
[2016-11-07] MEDS: RIVAROXABAN 10 MG TABLET PO SCH (21:07)
[2016-11-07] MEDS: TRAZODONE HCL 50 MG TABLET PO SCH (21:07)
[2016-11-07 22:44] LABS: ANION GAP 8 (5-19); BLOOD UREA NITROGEN 33 mg/dL (7-20); CALCIUM 8.2 mg/dL (8.4-10.2); CARBON DIOXIDE 26 mmol/L (22-30); CHLORIDE 99 mmol/L (98-107); CREATININE RESULT 1.41 mg/dL (0.52-1.25); SODIUM 132.8 mmol/L (137-145)
[2016-11-07 22:53] LABS: GLUCOSE 434 mg/dL (75-110)
[2016-11-07 22:54] LABS: POTASSIUM 6.2 mmol/L (3.6-5.0)
[2016-11-08] MEDS: CEFAZOLIN 2 GM/D5W RTU 2 GM/50 ML RTUPB IV SCH (02:12)
[2016-11-08] MEDS: ALBUTEROL SULFATE HFA (90 MCG/PUFF) 200 PUFF/8.5 GM MDI IH SCH ×5 (02:13→18:36)
[2016-11-08] MEDS ORDERED: CEFAZOLIN 2 GM/D5W RTU 2 GM/50 ML RTUPB IV PRN (05:00)
[2016-11-08] MEDS: IBUPROFEN 800 MG in NORMAL SALINE 250 ML IV SCH (05:08)
[2016-11-08 06:13] LABS: HEMATOCRIT 29.9 % (36.0-47.0); HEMOGLOBIN 9.6 g/dL (12.0-15.5); HGB HCT DIFFERENCE -1.1; MEAN CORPUSCULAR HEMOGLOBIN 28.2 pg (27.0-33.4); MEAN CORPUSCULAR HGB CONC 32.2 g/dL (32.0-36.0); MEAN CORPUSCULAR VOLUME 88 fl (80-97); RED BLOOD COUNT 3.42 10^6/uL (3.72-5.28); RED CELL DISTRIBUTION WIDTH 14.2 % (11.5-14.0); WHITE BLOOD COUNT 14.3 10^3/uL (4.0-10.5)
[2016-11-08 06:14] LABS: ANION GAP 7 (5-19); BLOOD UREA NITROGEN 38 mg/dL (7-20); CALCIUM 8.8 mg/dL (8.4-10.2); CARBON DIOXIDE 30 mmol/L (22-30); CHLORIDE 100 mmol/L (98-107); CREATININE RESULT 1.69 mg/dL (0.52-1.25); GLUCOSE 304 mg/dL (75-110); POTASSIUM 5.3 mmol/L (3.6-5.0)
[2016-11-08 06:51] LABS: BAND NEUTROPHILS % (MANUAL) 1 % (3-5); BASOPHILS % (MANUAL) 0 % (0-2); EOSINOPHILS % (MANUAL) 0 % (0-6); LYMPHOCYTES % (MANUAL) 7 % (13-45); TOTAL CELLS COUNTED 100
[2016-11-08 06:53] LABS: OVALOCYTES 1+
[2016-11-08] MEDS: INSULIN LISPRO 100 UNIT/ML 3 ML VIAL SUBCUT PRN ×4 (08:33→22:50)
[2016-11-08] MEDS: ISOSORBIDE MONONITRATE 60 MG TAB.ER.24H PO SCH (09:14)
[2016-11-08] MEDS: GABAPENTIN 300 MG CAPSULE PO SCH ×3 (09:14→22:51)
[2016-11-08] MEDS: OXYCODONE HCL IR 5 MG TABLET PO PRN ×2 (09:15→18:33)
[2016-11-08] MEDS: LANSOPRAZOLE 30 MG TAB.RAP.DR PO SCH (09:15)
[2016-11-08] MEDS: METOPROLOL TARTRATE 100 MG TABLET PO SCH (09:15)
[2016-11-08] MEDS: EZETIMIBE 10 MG TABLET PO SCH (09:16)
[2016-11-08] MEDS: PAROXETINE HCL 20 MG TABLET PO SCH (09:16)
[2016-11-08] MEDS: DIGOXIN 0.125 MG TABLET PO SCH (09:16)
[2016-11-08] MEDS: FAMOTIDINE INJ/PF 20 MG/2 ML SDV IV SCH ×2 (12:37→22:51)
[2016-11-08] MEDS ORDERED: IPRATROPIUM/ALBUTEROL 0.5-2.5 MG/3 ML AMPUL NEB SCH (14:00)
[2016-11-08] MEDS ORDERED: RINGERS SOLUTION,LACTATED 1,000 ML IV PRN (14:31)
[2016-11-08] MEDS ORDERED: IPRATROPIUM/ALBUTEROL 0.5-2.5 MG/3 ML AMPUL NEB ONE (16:31)
[2016-11-08] MEDS ORDERED: IPRATROPIUM/ALBUTEROL 0.5-2.5 MG/3 ML AMPUL NEB PRN (16:36)
[2016-11-08] MEDS ORDERED: FUROSEMIDE INJ/PF 20 MG/2 ML SDV IV SCH (18:00)
[2016-11-08] MEDS: PIPERACILLIN SODIUM/TAZOBACTAM 2.25 GM in NORMAL SALINE 50 ML IV SCH (18:34)
[2016-11-08 20:01] LABS: ARTERIAL BLOOD O2 SATURATION 87.4 % (94-98)
--- NOTE | 2016-11-08 20:17 | PDOC PROGRESS REPORT ---
Subjective Progress Note for:: 11/08/16 Subjective:: Patient seems to be doing better. Patient is status post hip surgery day 1.. Pt is denying any chest arm or neck discomfort. Patient denying any PND, orthopnea. Patient denied any sustained palpitations, dizziness, syncope, near syncope. Patient denying any fever chills. Patient denying any other significant discomfort. Patient still has significant discomfort in the surgical site. Patient is maintaining sinus rhythm. Review of systems: Rest review of systems negative. Medications: Medications have been reviewed. Physical Exam Vital Signs: Temp Pulse Resp BP Pulse Ox 97.4 F 59 L 20 116/47 L 98 11/08/16 15:42 11/08/16 16:38 11/08/16 16:38 11/08/16 15:42 11/08/16 16:38 Intake & Output 11/07/16 11/08/16 11/09/16 06:59 06:59 06:59 Intake Total 1050 2640 550 Output Total 2750 1300 400 Balance -1700 1340 150 Weight 80 kg 81 kg Exam: GENERAL: well-nourished and in no acute distress. Alert and oriented 2 HEAD: Atraumatic, normocephalic. EYES: Pupils equal round and reactive to light, extraocular movements intact, sclera anicteric, conjunctiva are normal. ENT: TMs normal, nares patent, oropharynx clear without exudates. Moist mucous membranes. No oral ulcerations or bleeding gums noted NECK: supple without lymphadenopathy. Trachea is central. No cervical or axillary lymphadenopathy noted. Carotids are 2+, JVD WNL LUNGS: Respiration seems nonlabored, no significant accessory muscle action noted. Breath sounds clear to auscultation bilaterally and equal noted. No wheezes rales or rhonchi noted. No significant dullness noted on percussion. CHEST: Palpation of the chest wall shows no significant chest wall tenderness. No other significant abnormalities noted. 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 ABDOMEN: Soft, no significant tenderness appreciated, normoactive bowel sounds. No guarding, no rebound. No rigidity noted . No masses appreciated. EXTREMITIES: Pedal pulses are 1-2+, no calf tenderness noted. No clubbing or cyanosis.trace to 1+ pedal edema noted NEUROLOGICAL: Focused neurological exam showed showed residual right-sided motor weakness and also mild dysphasia.. PSYCH: Normal mood, normal affect. Judgment and insight within normal limits. SKIN: No significant ecchymosis, rash, ulcerations or signs of pruritus noted. MUSCULOSKELETAL EXAM: No significant joint swelling noted. Results Laboratory Results: 11/08/16 04:53 11/08/16 04:53 11/07/16 11/07/16 11/08/16 21:00 22:07 04:53 WBC 14.3 H RBC 3.42 L Hgb 9.6 L Hct 29.9 L MCV 88 MCH 28.2 MCHC 32.2 RDW 14.2 H Plt Count 146 L Seg Neutrophils % Not Reportable Lymphocytes % Not Reportable Monocytes % Not Reportable Eosinophils % Not Reportable Basophils % Not Reportable Absolute Neutrophils Not Reportable Absolute Lymphocytes Not Reportable Absolute Monocytes Not Reportable Absolute Eosinophils Not Reportable Absolute Basophils Not Reportable Carbonic Acid HCO3/H2CO3 Ratio ABG pH ABG pCO2 ABG pO2 ABG HCO3 ABG O2 Saturation ABG Base Excess FiO2 Sodium Cancelled 132.8 L Potassium Cancelled 6.2 H* D Chloride Cancelled 99 Carbon Dioxide Cancelled 26 Anion Gap Cancelled 8 BUN Cancelled 33 H Creatinine Cancelled 1.41 H Est GFR ( Amer) Cancelled 43 L Est GFR (Non-Af Amer) Cancelled 36 L Glucose Cancelled 434 H* Calcium Cancelled 8.2 L 11/08/16 11/08/16 04:53 19:45 WBC RBC Hgb Hct MCV MCH MCHC RDW Plt Count Seg Neutrophils % Lymphocytes % Monocytes % Eosinophils % Basophils % Absolute Neutrophils Absolute Lymphocytes Absolute Monocytes Absolute Eosinophils Absolute Basophils Carbonic Acid 1.60 H HCO3/H2CO3 Ratio 17:1 ABG pH 7.33 L ABG pCO2 53.2 H ABG pO2 57.3 L ABG HCO3 27.4 H ABG O2 Saturation 87.4 L ABG Base Excess 1.0 FiO2 2.5L Sodium 137.0 Potassium 5.3 H Chloride 100 Carbon Dioxide 30 Anion Gap 7 BUN 38 H Creatinine 1.69 H Est GFR ( Amer) 35 L Est GFR (Non-Af Amer) 29 L Glucose 304 H Calcium 8.8 11/06/16 14:40 Catheterized Urine Urine Culture - Final NO GROWTH 2 DAYS 11/06/16 11/06/16 11/07/16 14:55 20:10 03:14 Troponin I < 0.012 < 0.012 < 0.012 NT-Pro-B Natriuret Pep 11/07/16 21:00 Troponin I NT-Pro-B Natriuret Pep 5790 H Impressions: Fluoroscopy 11/07/16 00:00 IMPRESSION: Please see combined report for performance of procedure and radiologic supervision and interpretation. Hip X-Ray 11/07/16 00:00 IMPRESSION: IMAGE(S) OBTAINED DURING PROCEDURE. Chest X-Ray 11/08/16 12:41 IMPRESSION: Possible borderline vascular congestion. Recommend clinical correlation. Markings at the right base on the previous chest x-ray less prominent. Assessment & Plan - Diagnosis (1) Closed left hip fracture Qualifiers: Encounter type: initial encounter Qualified Code(s): S72.002A - Fracture of unspecified part of neck of left femur, initial encounter for closed fracture Is this a current diagnosis for this admission?: Yes (2) Congestive heart failure Qualifiers: Congestive heart failure type: diastolic Congestive heart failure chronicity: chronic Qualified Code(s): I50.32 - Chronic diastolic ( congestive) heart failure Is this a current diagnosis for this admission?: Yes (3) HTN (hypertension) Qualifiers: Hypertension type: essential hypertension Qualified Code(s): I10 - Essential (primary) hypertension Is this a current diagnosis for this admission?: Yes (4) Atrial fibrillation Qualifiers: Atrial fibrillation type: paroxysmal Qualified Code(s): I48.0 - Paroxysmal atrial fibrillation Is this a current diagnosis for this admission?: Yes (5) CAD (coronary artery disease) Qualifiers: Coronary Disease-Associated Artery/Lesion type: hoh artery [place] vs. transplanted heart: hoh heart Associated angina: without angina Qualified Code(s): I25.10 - Atherosclerotic heart disease of hoh coronary artery without angina pectoris Is this a current diagnosis for this admission?: Yes (6) Diabetes mellitus type 2, controlled, without complications Qualifiers: Diabetes mellitus exterminator insulin use: unspecified exterminator insulin use status Qualified Code(s): E11.9 - Type 2 diabetes mellitus without complications Is this a current diagnosis for this admission?: Yes (7) PAD (peripheral artery disease) Is this a current diagnosis for this admission?: Yes (8) Valvular heart disease Is this a current diagnosis for this admission?: Yes - Notes Notes: Patient has shown general improvement in general status. Patient continuing to maintain sinus rhythm. Chest x-ray today shows mild pulmonary venous congestion. Patient is progressing somewhat slowly postop. At this point patient remains stable from cardiac standpoint. Because of significant cardiac history, atrial fibrillation, peripheral vascular disease and also valvular heart disease, will follow patient until discharge. Patient's medications reviewed. No medication changes performed today. - Time Time with patient: 15-25 minutes - CODE STATUS was discussed, patient remains full code. Surrogate decision-maker unchanged. Multiple medical problems were addressed.More than 50% of the time spent coordinating care, discussing management plans with involved caregivers. Management plans discussed with involved personnels. Medical decision making was of moderate complexity.
[2016-11-08] MEDS ORDERED: NORMAL SALINE IV SCH (22:00)
[2016-11-08] MEDS ORDERED: IBUPROFEN IV SCH (22:00)
--- NOTE | 2016-11-08 22:02 | PDOC PROGRESS REPORT ---
Subjective Progress Note for:: 11/08/16 Subjective:: Patient had respiratory distress last night And should be placed on BiPAP support Patient is still quite congested today, alert and awake, but somewhat tachypneic with continued hypoxemia Her chest x-ray showed basilar infiltrates with some pulmonary congestion Renal function has worsened and her creatinine is now 1.6 Her mentation remains adequate Physical Exam Vital Signs: Temp Pulse Resp BP Pulse Ox 97.3 F 61 16 117/37 L 95 11/08/16 20:31 11/08/16 20:31 11/08/16 20:31 11/08/16 20:31 11/08/16 20:31 Intake & Output 11/07/16 11/08/16 11/09/16 00:59 00:59 00:59 Intake Total 300 2790 1150 Output Total 950 2800 700 Balance -650 -10 450 Weight 79.9 kg 80 kg 81 kg General appearance: PRESENT: mild distress Head exam: PRESENT: atraumatic, normocephalic Eye exam: PRESENT: conjunctiva pink, EOMI, PERRLA. ABSENT: scleral icterus Neck exam: ABSENT: carotid bruit, JVD, lymphadenopathy, thyromegaly Respiratory exam: PRESENT: rhonchi, tachypnea. ABSENT: accessory muscle use Cardiovascular exam: PRESENT: irregular rhythm, RRR, systolic murmur. ABSENT: diastolic murmur, rubs Pulses: PRESENT: normal dorsalis pedis pul GI/Abdominal exam: PRESENT: normal bowel sounds, soft. ABSENT: distended, guarding, mass, organolmegaly, rebound, tenderness Extremities exam: PRESENT: full ROM. ABSENT: calf tenderness, clubbing, pedal edema Neurological exam: PRESENT: alert, awake, oriented to person, oriented to place , oriented to time, oriented to situation, CN II-XII grossly intact. ABSENT: motor sensory deficit Results Laboratory Results: 11/08/16 04:53 11/08/16 04:53 11/07/16 11/08/16 11/08/16 22:07 04:53 04:53 WBC 14.3 H RBC 3.42 L Hgb 9.6 L Hct 29.9 L MCV 88 MCH 28.2 MCHC 32.2 RDW 14.2 H Plt Count 146 L Seg Neutrophils % Not Reportable Lymphocytes % Not Reportable Monocytes % Not Reportable Eosinophils % Not Reportable Basophils % Not Reportable Absolute Neutrophils Not Reportable Absolute Lymphocytes Not Reportable Absolute Monocytes Not Reportable Absolute Eosinophils Not Reportable Absolute Basophils Not Reportable Carbonic Acid HCO3/H2CO3 Ratio ABG pH ABG pCO2 ABG pO2 ABG HCO3 ABG O2 Saturation ABG Base Excess FiO2 Sodium 132.8 L 137.0 Potassium 6.2 H* D 5.3 H Chloride 99 100 Carbon Dioxide 26 30 Anion Gap 8 7 BUN 33 H 38 H Creatinine 1.41 H 1.69 H Est GFR ( Amer) 43 L 35 L Est GFR (Non-Af Amer) 36 L 29 L Glucose 434 H* 304 H Calcium 8.2 L 8.8 11/08/16 19:45 WBC RBC Hgb Hct MCV MCH MCHC RDW Plt Count Seg Neutrophils % Lymphocytes % Monocytes % Eosinophils % Basophils % Absolute Neutrophils Absolute Lymphocytes Absolute Monocytes Absolute Eosinophils Absolute Basophils Carbonic Acid 1.60 H HCO3/H2CO3 Ratio 17:1 ABG pH 7.33 L ABG pCO2 53.2 H ABG pO2 57.3 L ABG HCO3 27.4 H ABG O2 Saturation 87.4 L ABG Base Excess 1.0 FiO2 2.5L Sodium Potassium Chloride Carbon Dioxide Anion Gap BUN Creatinine Est GFR ( Amer) Est GFR (Non-Af Amer) Glucose Calcium 11/06/16 14:40 Catheterized Urine Urine Culture - Final NO GROWTH 2 DAYS 11/06/16 11/06/16 11/07/16 14:55 20:10 03:14 Troponin I < 0.012 < 0.012 < 0.012 NT-Pro-B Natriuret Pep 11/07/16 21:00 Troponin I NT-Pro-B Natriuret Pep 5790 H Impressions: Fluoroscopy 11/07/16 00:00 IMPRESSION: Please see combined report for performance of procedure and radiologic supervision and interpretation. Hip X-Ray 11/07/16 00:00 IMPRESSION: IMAGE(S) OBTAINED DURING PROCEDURE. Chest X-Ray 11/08/16 12:41 IMPRESSION: Possible borderline vascular congestion. Recommend clinical correlation. Markings at the right base on the previous chest x-ray less prominent. Assessment & Plan - Diagnosis (1) Congestive heart failure Qualifiers: Congestive heart failure type: diastolic Congestive heart failure chronicity: chronic Qualified Code(s): I50.32 - Chronic diastolic ( congestive) heart failure Is this a current diagnosis for this admission?: YesPlan: Acute on chronic diastolic CHF We will continue to diurese gently Concern is renal function that is worsening slowly We will decrease Lasix 20 mg IV daily, and continue to hydrate gently (2) Fracture, intertrochanteric, left femur Is this a current diagnosis for this admission?: Yes (3) HTN (hypertension) Qualifiers: Hypertension type: essential hypertension Qualified Code(s): I10 - Essential (primary) hypertension Is this a current diagnosis for this admission?: YesPlan: Patient's blood pressure is running on the low side 90-110 systolic We will decrease somewhat beta jaxon (4) Valvular heart disease Is this a current diagnosis for this admission?: Yes (5) Atrial fibrillation Qualifiers: Atrial fibrillation type: paroxysmal Qualified Code(s): I48.0 - Paroxysmal atrial fibrillation Is this a current diagnosis for this admission?: YesPlan: Rate controlled (6) Respiratory failure Qualifiers: Chronicity: acute Is this a current diagnosis for this admission?: YesPlan: Acute hypoxemic hypercarbic respiratory failure Likely to be secondary to CHF acute exacerbation and aspiration pneumonia We will continue O2 supplementation Start antibiotics; Zosyn IV We will add nebs incentive spirometry (7) Acute renal failure Is this a current diagnosis for this admission?: YesPlan: Decrease Lasix ; hydrate gently overnight - Time Time Spent with patient: Repeat labs in a.m. Time Spent with patient: 25-34 minutes
[2016-11-08] MEDS: INSULIN GLARGINE,HUM.REC.ANLOG 300 UNIT/3 ML INSULN.PEN SUBCUT SCH (22:50)
[2016-11-08] MEDS: TRAZODONE HCL 50 MG TABLET PO SCH (22:51)
[2016-11-08] MEDS: RIVAROXABAN 10 MG TABLET PO SCH (22:51)
[2016-11-09] MEDS: PIPERACILLIN SODIUM/TAZOBACTAM 2.25 GM in NORMAL SALINE 50 ML IV SCH ×5 (00:33→23:52)
[2016-11-09] MEDS: NORMAL SALINE 1000 ML 1,000 ML IV PRN (00:34)
[2016-11-09 06:02] LABS: HEMOGLOBIN 10.3 g/dL (12.0-15.5); HGB HCT DIFFERENCE -1.1; MEAN CORPUSCULAR HEMOGLOBIN 28.1 pg (27.0-33.4); MEAN CORPUSCULAR HGB CONC 32.2 g/dL (32.0-36.0); MEAN CORPUSCULAR VOLUME 87 fl (80-97); RED BLOOD COUNT 3.66 10^6/uL (3.72-5.28); RED CELL DISTRIBUTION WIDTH 14.5 % (11.5-14.0); WHITE BLOOD COUNT 16.1 10^3/uL (4.0-10.5)
[2016-11-09 06:16] LABS: BASOPHILS % (MANUAL) 0 % (0-2); EOSINOPHILS % (MANUAL) 3 % (0-6); LYMPHOCYTES % (MANUAL) 6 % (13-45); TOTAL CELLS COUNTED 100
[2016-11-09 06:17] LABS: ANISOCYTOSIS SLIGHT; OVALOCYTES SLIGHT; POIKILOCYTOSIS SLIGHT
[2016-11-09 06:19] LABS: ANION GAP 10 (5-19); BLOOD UREA NITROGEN 44 mg/dL (7-20); CALCIUM 9.3 mg/dL (8.4-10.2); CARBON DIOXIDE 30 mmol/L (22-30); CHLORIDE 100 mmol/L (98-107); CREATININE RESULT 1.51 mg/dL (0.52-1.25); DIGOXIN 1.34 ng/mL (0.8-2.0); GLUCOSE 200 mg/dL (75-110); POTASSIUM 5.1 mmol/L (3.6-5.0); SODIUM 140.4 mmol/L (137-145)
[2016-11-09] MEDS: IPRATROPIUM/ALBUTEROL 0.5-2.5 MG/3 ML AMPUL NEB SCH ×3 (07:56→20:03)
[2016-11-09] MEDS: GABAPENTIN 300 MG CAPSULE PO SCH ×2 (08:06→22:05)
[2016-11-09] MEDS: OXYCODONE HCL IR 5 MG TABLET PO PRN (08:50)
[2016-11-09] MEDS ORDERED: FUROSEMIDE INJ/PF 20 MG/2 ML SDV IV SCH (10:00)
[2016-11-09] MEDS: DIGOXIN 0.125 MG TABLET PO SCH (10:14)
[2016-11-09] MEDS: PAROXETINE HCL 20 MG TABLET PO SCH (10:15)
[2016-11-09] MEDS: ISOSORBIDE MONONITRATE 60 MG TAB.ER.24H PO SCH (10:15)
[2016-11-09] MEDS: LANSOPRAZOLE 30 MG TAB.RAP.DR PO SCH (10:15)
[2016-11-09] MEDS: FAMOTIDINE INJ/PF 20 MG/2 ML SDV IV SCH ×2 (10:16→22:05)
--- NOTE | 2016-11-09 11:31 | PDOC PROGRESS REPORT ---
Subjective Progress Note for:: 11/09/16 Subjective:: Reason for visit: Follow-up left hip fracture, CHF, acute kidney injury, possible aspiration pneumonia, hypoxic respiratory failure Hospital course: Review of previous notes -"MARGARET BURRELL is a 80 year old male history of congestive heart failure A. fib presents from his physician's office with concerns of worsening congestive heart failure. Patient was noted to be satting 87% on room air at the office. Patient is not on oxygen at home. 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 ROS: Unobtainable due to mental state. Physical Exam Vital Signs: Temp Pulse Resp BP Pulse Ox 97.6 F 72 19 127/42 H 93 11/09/16 08:09 11/09/16 08:09 11/09/16 08:09 11/09/16 08:09 11/09/16 08:15 Intake & Output 11/08/16 11/09/16 11/10/16 06:59 06:59 06:59 Intake Total 2640 1325 Output Total 1300 400 Balance 1340 925 Weight 81 kg 83.1 kg EXAM GENERAL: NAD; well developed, well nourished; no obese; alert and talkative, recites her name HEENT: normocephalic, atraumatic; no conjunctival injection, no scleral icterus ; oral mucosa moist; RESPIRATORY: no accessory muscle use, no increased WOB, good air entry bilaterally; no wheezes, rales, rhonchi; bilateral inspiratory crackles CARDIO: no JVD; RRR; no systolic murmur; no tachycardia GI: soft; nondistended; normal bowel sounds; no rebound, rigidity, guarding; no tenderness or grimace to palpation VASCULAR: Very pale; 2+ radial, DP pulse; normal capillary refill EXTREMITIES: no calf tender; no palpable cords in calf; no clubbing, cyanosis , pedal edema; left hip wound clean dry and intact PSYCH: Calm and cooperative, we will follow directions but only simple 1 step SKIN: warm; moist; no petechiae; no telengectasias; no jaundice; no rash Results Laboratory Results: 11/09/16 04:57 11/09/16 04:57 11/08/16 11/09/16 11/09/16 19:45 04:57 04:57 WBC 16.1 H RBC 3.66 L Hgb 10.3 L Hct 32.0 L MCV 87 MCH 28.1 MCHC 32.2 RDW 14.5 H Plt Count 136 L Seg Neutrophils % Not Reportable Lymphocytes % Not Reportable Monocytes % Not Reportable Eosinophils % Not Reportable Basophils % Not Reportable Absolute Neutrophils Not Reportable Absolute Lymphocytes Not Reportable Absolute Monocytes Not Reportable Absolute Eosinophils Not Reportable Absolute Basophils Not Reportable Carbonic Acid 1.60 H HCO3/H2CO3 Ratio 17:1 ABG pH 7.33 L ABG pCO2 53.2 H ABG pO2 57.3 L ABG HCO3 27.4 H ABG O2 Saturation 87.4 L ABG Base Excess 1.0 FiO2 2.5L Sodium 140.4 Potassium 5.1 H Chloride 100 Carbon Dioxide 30 Anion Gap 10 BUN 44 H Creatinine 1.51 H Est GFR ( Amer) 40 L Est GFR (Non-Af Amer) 33 L Glucose 200 H Calcium 9.3 11/06/16 14:40 Catheterized Urine Urine Culture - Final NO GROWTH 2 DAYS 11/06/16 11/06/16 11/07/16 14:55 20:10 03:14 Troponin I < 0.012 < 0.012 < 0.012 NT-Pro-B Natriuret Pep 11/07/16 21:00 Troponin I NT-Pro-B Natriuret Pep 5790 H Impressions: Fluoroscopy 11/07/16 00:00 IMPRESSION: Please see combined report for performance of procedure and radiologic supervision and interpretation. Hip X-Ray 11/07/16 00:00 IMPRESSION: IMAGE(S) OBTAINED DURING PROCEDURE. Chest X-Ray 11/08/16 12:41 IMPRESSION: Possible borderline vascular congestion. Recommend clinical correlation. Markings at the right base on the previous chest x-ray less prominent. Status: Imported from PACS Assessment & Plan - Diagnosis (1) Hypoxemia Is this a current diagnosis for this admission?: YesPlan: Multifactorial with component of diastolic heart failure and possible aspiration pneumonia. Continue gentle, natural diuresis utilizing insensible losses with careful monitoring of renal function and hold further diuretic therapy at present; continue antibiotic coverage for aspiration. (2) Acute renal failure Qualifiers: Acute renal failure type: unspecified Qualified Code(s): N17.9 - Acute kidney failure, unspecified Is this a current diagnosis for this admission?: YesPlan: Serum creatinine stable and slightly improved. Continue to monitor. Avoid nephrotoxic medications (3) Congestive heart failure Qualifiers: Congestive heart failure type: diastolic Congestive heart failure chronicity: chronic Qualified Code(s): I50.32 - Chronic diastolic ( congestive) heart failure Is this a current diagnosis for this admission?: YesPlan: Continue gentle, natural diuresis as noted above and monitor changes in volume status requiring further diuretics. (4) Fracture, intertrochanteric, left femur Qualifiers: Encounter type: initial encounter Fracture type: closed Qualified Code(s): S72.142A - Displaced intertrochanteric fracture of left femur , initial encounter for closed fracture Is this a current diagnosis for this admission?: YesPlan: Management per orthopedics. (5) HTN (hypertension) Qualifiers: Hypertension type: essential hypertension Qualified Code(s): I10 - Essential (primary) hypertension Is this a current diagnosis for this admission?: Yes (6) Atrial fibrillation Qualifiers: Atrial fibrillation type: paroxysmal Qualified Code(s): I48.0 - Paroxysmal atrial fibrillation Is this a current diagnosis for this admission?: YesPlan: Rate controlled, appreciate cardiology's input. Continue current regimen. (7) Expressive aphasia Is this a current diagnosis for this admission?: YesPlan: Per staff, patient is at baseline. (8) Diabetes mellitus type 2, controlled, without complications Qualifiers: Diabetes mellitus terminal clerk insulin use: unspecified terminal clerk insulin use status Qualified Code(s): E11.9 - Type 2 diabetes mellitus without complications Is this a current diagnosis for this admission?: YesPlan: Continue insulin coverage - Time Time Spent with patient: 25-34 minutes Medications reviewed and adjusted accordingly: Yes Anticipated discharge: SNF Within: within 48 hours
[2016-11-09] MEDS: EZETIMIBE 10 MG TABLET PO SCH (11:34)
[2016-11-09] MEDS: INSULIN GLARGINE,HUM.REC.ANLOG 300 UNIT/3 ML INSULN.PEN SUBCUT SCH ×2 (11:35→22:05)
[2016-11-09] MEDS: METOPROLOL TARTRATE 50 MG TABLET PO SCH ×2 (11:38→22:04)
--- NOTE | 2016-11-09 18:28 | PDOC PROGRESS REPORT ---
Subjective Progress Note for:: 11/09/16 Subjective:: Patient seems to be doing better. Patient is status post hip surgery day 2. Pt is denying any chest arm or neck discomfort. Patient denying any PND, orthopnea. Patient denied any sustained palpitations, dizziness, syncope, near syncope. Patient denying any fever chills. Patient denying any other significant discomfort. Patient still has significant discomfort in the surgical site. Patient still quite debilitated and not able to participate much in physical therapy Patient is maintaining sinus rhythm. Review of systems: Rest review of systems negative. Medications: Medications have been reviewed. Physical Exam Vital Signs: Temp Pulse Resp BP Pulse Ox 99.0 F 85 20 122/35 L 93 11/09/16 15:46 11/09/16 15:46 11/09/16 15:46 11/09/16 15:46 11/09/16 16:00 Intake & Output 11/08/16 11/09/16 11/10/16 06:59 06:59 06:59 Intake Total 2640 1325 620 Output Total 1300 400 Balance 1340 925 620 Weight 81 kg 83.1 kg 83.1 kg Exam: GENERAL: well-nourished and in no acute distress. Alert and oriented x3 HEAD: Atraumatic, normocephalic. EYES: Pupils equal round and reactive to light, extraocular movements intact, sclera anicteric, conjunctiva are normal. ENT: TMs normal, nares patent, oropharynx clear without exudates. Moist mucous membranes. No oral ulcerations or bleeding gums noted NECK: supple without lymphadenopathy. Trachea is central. No cervical or axillary lymphadenopathy noted. Carotids are 2+, JVD WNL LUNGS: Respiration seems nonlabored, no significant accessory muscle action noted. Breath sounds clear to auscultation bilaterally and equal noted. No wheezes rales or rhonchi noted. No significant dullness noted on percussion. CHEST: Palpation of the chest wall shows no significant chest wall tenderness. No other significant abnormalities noted. HEART: [place] LAB INTERN, No PSH, 1/6 GADIEL aortic area, 1/6 garcía systolic murmur mitral area, no rubs, no gallops. ABDOMEN: Soft, no significant tenderness appreciated, normoactive bowel sounds. No guarding, no rebound. No rigidity noted . No masses appreciated. EXTREMITIES: Pedal pulses are 1-2+, no calf tenderness noted. No clubbing or cyanosis.trace to 1+ pedal edema noted NEUROLOGICAL: Focused neurological exam showed residual right-sided weakness and dysphasia. PSYCH: Normal mood, normal affect. Judgment and insight within normal limits. SKIN: No significant ecchymosis, rash, ulcerations or signs of pruritus noted. MUSCULOSKELETAL EXAM: No significant joint swelling noted. Findings of post surgical left hip replacement Results Laboratory Results: 11/09/16 04:57 11/09/16 04:57 11/08/16 11/09/16 11/09/16 19:45 04:57 04:57 WBC 16.1 H RBC 3.66 L Hgb 10.3 L Hct 32.0 L MCV 87 MCH 28.1 MCHC 32.2 RDW 14.5 H Plt Count 136 L Seg Neutrophils % Not Reportable Lymphocytes % Not Reportable Monocytes % Not Reportable Eosinophils % Not Reportable Basophils % Not Reportable Absolute Neutrophils Not Reportable Absolute Lymphocytes Not Reportable Absolute Monocytes Not Reportable Absolute Eosinophils Not Reportable Absolute Basophils Not Reportable Carbonic Acid 1.60 H HCO3/H2CO3 Ratio 17:1 ABG pH 7.33 L ABG pCO2 53.2 H ABG pO2 57.3 L ABG HCO3 27.4 H ABG O2 Saturation 87.4 L ABG Base Excess 1.0 FiO2 2.5L Sodium 140.4 Potassium 5.1 H Chloride 100 Carbon Dioxide 30 Anion Gap 10 BUN 44 H Creatinine 1.51 H Est GFR ( Amer) 40 L Est GFR (Non-Af Amer) 33 L Glucose 200 H Calcium 9.3 11/06/16 11/06/16 11/07/16 14:55 20:10 03:14 Troponin I < 0.012 < 0.012 < 0.012 NT-Pro-B Natriuret Pep 11/07/16 21:00 Troponin I NT-Pro-B Natriuret Pep 5790 H Impressions: Fluoroscopy 11/07/16 00:00 IMPRESSION: Please see combined report for performance of procedure and radiologic supervision and interpretation. Hip X-Ray 11/07/16 00:00 IMPRESSION: IMAGE(S) OBTAINED DURING PROCEDURE. Chest X-Ray 11/08/16 12:41 IMPRESSION: Possible borderline vascular congestion. Recommend clinical correlation. Markings at the right base on the previous chest x-ray less prominent. Assessment & Plan - Diagnosis (1) Closed left hip fracture Qualifiers: Encounter type: initial encounter Qualified Code(s): S72.002A - Fracture of unspecified part of neck of left femur, initial encounter for closed fracture Is this a current diagnosis for this admission?: Yes (2) Congestive heart failure Qualifiers: Congestive heart failure type: diastolic Congestive heart failure chronicity: chronic Qualified Code(s): I50.32 - Chronic diastolic ( congestive) heart failure Is this a current diagnosis for this admission?: Yes (3) HTN (hypertension) Qualifiers: Hypertension type: essential hypertension Qualified Code(s): I10 - Essential (primary) hypertension Is this a current diagnosis for this admission?: Yes (4) Atrial fibrillation Qualifiers: Atrial fibrillation type: paroxysmal Qualified Code(s): I48.0 - Paroxysmal atrial fibrillation Is this a current diagnosis for this admission?: Yes (5) CAD (coronary artery disease) Qualifiers: Coronary Disease-Associated Artery/Lesion type: [place] artery [place] vs. 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 Hypertension: Blood pressure under satisfactory control. Atrial fibrillation: Paroxysmal Patient seems to be maintaining sinus rhythm. Resume chronic anticoagulation. Coronary artery disease: Symptomatically stable. Diabetes: Currently reasonably well controlled. Peripheral arterial disease: Currently stable. No signs of tissue hypoperfusion. Valvular heart disease: Currently stable. Until observation. - Time Time with patient: 15-25 minutes - CODE STATUS was discussed, patient remains full code. Surrogate decision-maker patient's . Multiple medical problems were addressed.More than 50% of the time spent coordinating care, discussing management plans with involved caregivers. Management plans discussed with involved personnels. Medical decision making was of moderate complexity. Patient has been stable from cardiac standpoint. Medications reviewed and adjusted accordingly: Yes
[2016-11-09] MEDS: TRAZODONE HCL 50 MG TABLET PO SCH (22:04)
[2016-11-09] MEDS: RIVAROXABAN 10 MG TABLET PO SCH (22:04)
[2016-11-10] MEDS: PIPERACILLIN SODIUM/TAZOBACTAM 2.25 GM in NORMAL SALINE 50 ML IV SCH ×4 (05:07→23:31)
[2016-11-10 05:33] LABS: ABSOLUTE EOSINOPHILS # (AUTO) 0.2 10^3/uL (0.0-0.6); ABSOLUTE LYMPHOCYTES (AUTO) 0.7 10^3/uL (0.5-4.7); ABSOLUTE MONOCYTES (AUTO) 0.6 10^3/uL (0.1-1.4); ABSOLUTE NEUT (AUTO) 9.4 10^3/uL (1.7-8.2); BASOPHILS % (AUTO) 0.2 % (0-2); EOSINOPHILS % (AUTO) 1.5 % (0-6); HEMOGLOBIN 8.4 g/dL (12.0-15.5); HGB HCT DIFFERENCE 0.2; LYMPHOCYTES % (AUTO) 6.7 % (13-45); MEAN CORPUSCULAR HEMOGLOBIN 29.1 pg (27.0-33.4); MEAN CORPUSCULAR HGB CONC 33.5 g/dL (32.0-36.0); MEAN CORPUSCULAR VOLUME 87 fl (80-97); MONOCYTES % (AUTO) 5.9 % (3-13); RED BLOOD COUNT 2.87 10^6/uL (3.72-5.28); RED CELL DISTRIBUTION WIDTH 14.5 % (11.5-14.0); SEGMENTED NEUTROPHILS % (AUTO) 85.7 % (42-78)
[2016-11-10 05:40] LABS: ANION GAP 8 (5-19); BLOOD UREA NITROGEN 37 mg/dL (7-20); CALCIUM 8.8 mg/dL (8.4-10.2); CARBON DIOXIDE 29 mmol/L (22-30); CHLORIDE 104 mmol/L (98-107); CREATININE RESULT 1.07 mg/dL (0.52-1.25); GLUCOSE 107 mg/dL (75-110); POTASSIUM 4.7 mmol/L (3.6-5.0); SODIUM 141.3 mmol/L (137-145)
--- NOTE | 2016-11-10 07:06 | PDOC PROGRESS REPORT ---
Subjective Progress Note for:: 11/10/16 Subjective:: Patient resting comfortably Physical Exam Vital Signs: Temp Pulse Resp BP Pulse Ox 37.6 C 77 20 116/34 L 99 11/10/16 02:47 11/10/16 02:47 11/10/16 02:47 11/10/16 02:47 11/10/16 04:46 Intake & Output 11/09/16 11/10/16 11/11/16 06:59 06:59 06:59 Intake Total 1325 620 Output Total 400 Balance 925 620 Weight 83.1 kg 84.4 kg General appearance: PRESENT: no acute distress Head exam: PRESENT: normocephalic Respiratory exam: PRESENT: unlabored Pulses: PRESENT: +1 pedal pulses bilateral GI/Abdominal exam: PRESENT: soft Rectal exam: PRESENT: deferred Extremities exam: PRESENT: other - Left lower extremity dressings clean dry and intact Results Laboratory Results: 11/10/16 04:56 11/10/16 04:56 11/10/16 11/10/16 04:56 04:56 WBC 11.0 H RBC 2.87 L Hgb 8.4 L Hct 25.0 L MCV 87 MCH 29.1 MCHC 33.5 RDW 14.5 H Plt Count 134 L Seg Neutrophils % 85.7 H Lymphocytes % 6.7 L Monocytes % 5.9 Eosinophils % 1.5 Basophils % 0.2 Absolute Neutrophils 9.4 H Absolute Lymphocytes 0.7 Absolute Monocytes 0.6 Absolute Eosinophils 0.2 Absolute Basophils 0.0 Sodium 141.3 Potassium 4.7 Chloride 104 Carbon Dioxide 29 Anion Gap 8 BUN 37 H Creatinine 1.07 Est GFR ( Amer) 59 L Est GFR (Non-Af Amer) 49 L Glucose 107 Calcium 8.8 11/06/16 11/06/16 11/07/16 14:55 20:10 03:14 Troponin I < 0.012 < 0.012 < 0.012 NT-Pro-B Natriuret Pep 11/07/16 21:00 Troponin I NT-Pro-B Natriuret Pep 5790 H Impressions: Fluoroscopy 11/07/16 00:00 IMPRESSION: Please see combined report for performance of procedure and radiologic supervision and interpretation. Hip X-Ray 11/07/16 00:00 IMPRESSION: IMAGE(S) OBTAINED DURING PROCEDURE. Chest X-Ray 11/08/16 12:41 IMPRESSION: Possible borderline vascular congestion. Recommend clinical correlation. Markings at the right base on the previous chest x-ray less prominent. Assessment & Plan - Diagnosis (1) Fracture, intertrochanteric, left femur Qualifiers: Encounter type: initial encounter Fracture type: closed Qualified Code(s): S72.142A - Displaced intertrochanteric fracture of left femur , initial encounter for closed fracture Is this a current diagnosis for this admission?: YesPlan: Limited progress with physical therapy. Patient can be out of bed, weightbearing as tolerated. Medical issues are being resolved. Anticipate transfer to half-way facility - Time Time Spent with patient: 15-24 minutes Anticipated discharge: SNF Within: Other
[2016-11-10] MEDS: IPRATROPIUM/ALBUTEROL 0.5-2.5 MG/3 ML AMPUL NEB SCH ×3 (08:05→20:03)
[2016-11-10 09:40] LABS: ARTERIAL BLOOD BASE EXCESS 5.1 mmol/L; ARTERIAL BLOOD O2 SATURATION 97.4 % (94-98)
--- NOTE | 2016-11-10 12:51 | PDOC PROGRESS REPORT ---
Subjective Progress Note for:: 11/10/16 Subjective:: Patient seems to be short of breath and wearing bilevel therapy. Arterial blood gases showed CO2 retention. Chest x-ray from yesterday shows CHF. Other lab data was reviewed. Pt is denying any chest arm or neck discomfort. Patient denying any PND, orthopnea. Patient denied any sustained palpitations, dizziness, syncope, near syncope. Patient denying any fever chills. Patient denying any other significant discomfort. Patient is maintaining sinus rhythm. Review of systems: Rest review of systems negative. Medications: Medications have been reviewed. Physical Exam Vital Signs: Temp Pulse Resp BP Pulse Ox 98.2 F 71 17 141/51 H 98 11/10/16 11:31 11/10/16 11:31 11/10/16 12:21 11/10/16 11:31 11/10/16 12:21 Intake & Output 11/09/16 11/10/16 11/11/16 06:59 06:59 06:59 Intake Total 1325 1220 Output Total 400 Balance 925 1220 Weight 83.1 kg 84.4 kg Exam: GENERAL: well-nourished and in no acute distress. Alert and oriented 2 HEAD: Atraumatic, normocephalic. EYES: Pupils equal round and reactive to light, extraocular movements intact, sclera anicteric, conjunctiva are normal. ENT: TMs normal, nares patent, oropharynx clear without exudates. Moist mucous membranes. No oral ulcerations or bleeding gums noted NECK: supple without lymphadenopathy. Trachea is central. No cervical or axillary lymphadenopathy noted. Carotids are 2+, JVD WNL LUNGS: Respiration seems nonlabored, no significant accessory muscle action noted. Fine bibasilar crackles are noted. No dullness noted CHEST: Palpation of the chest wall shows no significant chest wall tenderness. No other significant abnormalities noted. 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 ABDOMEN: Soft, no significant tenderness appreciated, normoactive bowel sounds. No guarding, no rebound. No rigidity noted . No masses appreciated. EXTREMITIES: Pedal pulses are 1-2+, no calf tenderness noted. No clubbing or cyanosis.1+ pedal edema noted NEUROLOGICAL: Focused neurological exam showed mild right-sided weakness and dysphasia. PSYCH: Normal mood, normal affect. Judgment and insight difficult to assess because of speech and communication problems. SKIN: No significant ecchymosis, rash, ulcerations or signs of pruritus noted. MUSCULOSKELETAL EXAM: No significant joint swelling noted. Results Laboratory Results: 11/10/16 04:56 11/10/16 04:56 11/10/16 11/10/16 11/10/16 04:56 04:56 09:10 WBC 11.0 H RBC 2.87 L Hgb 8.4 L Hct 25.0 L MCV 87 MCH 29.1 MCHC 33.5 RDW 14.5 H Plt Count 134 L Seg Neutrophils % 85.7 H Lymphocytes % 6.7 L Monocytes % 5.9 Eosinophils % 1.5 Basophils % 0.2 Absolute Neutrophils 9.4 H Absolute Lymphocytes 0.7 Absolute Monocytes 0.6 Absolute Eosinophils 0.2 Absolute Basophils 0.0 Carbonic Acid 1.88 H HCO3/H2CO3 Ratio 17:1 ABG pH 7.33 L ABG pCO2 62.4 H ABG pO2 106.4 H ABG HCO3 32.2 H ABG O2 Saturation 97.4 ABG Base Excess 5.1 FiO2 4L Sodium 141.3 Potassium 4.7 Chloride 104 Carbon Dioxide 29 Anion Gap 8 BUN 37 H Creatinine 1.07 Est GFR ( Amer) 59 L Est GFR (Non-Af Amer) 49 L Glucose 107 Calcium 8.8 11/06/16 11/06/16 11/07/16 14:55 20:10 03:14 Troponin I < 0.012 < 0.012 < 0.012 NT-Pro-B Natriuret Pep 11/07/16 21:00 Troponin I NT-Pro-B Natriuret Pep 5790 H Impressions: Fluoroscopy 11/07/16 00:00 IMPRESSION: Please see combined report for performance of procedure and radiologic supervision and interpretation. Hip X-Ray 11/07/16 00:00 IMPRESSION: IMAGE(S) OBTAINED DURING PROCEDURE. Chest X-Ray 11/08/16 12:41 IMPRESSION: Possible borderline vascular congestion. Recommend clinical correlation. Markings at the right base on the previous chest x-ray less prominent. Assessment & Plan - Diagnosis (1) Closed left hip fracture Qualifiers: Encounter type: initial encounter Qualified Code(s): S72.002A - Fracture of unspecified part of neck of left femur, initial encounter for closed fracture Is this a current diagnosis for this admission?: Yes (2) Congestive heart failure Qualifiers: Congestive heart failure type: diastolic Congestive heart failure chronicity: chronic Qualified Code(s): I50.32 - Chronic diastolic ( congestive) heart failure Is this a current diagnosis for this admission?: Yes (3) HTN (hypertension) Qualifiers: Hypertension type: essential hypertension Qualified Code(s): I10 - Essential (primary) hypertension Is this a current diagnosis for this admission?: Yes (4) Atrial fibrillation Qualifiers: Atrial fibrillation type: paroxysmal Qualified Code(s): I48.0 - Paroxysmal atrial fibrillation Is this a current diagnosis for this admission?: Yes (5) CAD (coronary artery disease) Qualifiers: Coronary Disease-Associated Artery/Lesion type: [place] artery [place] vs. transplanted heart: [place] heart Associated angina: without angina Qualified Code(s): I25.10 - Atherosclerotic heart disease of [place] coronary artery without angina pectoris Is this a current diagnosis for this admission?: Yes (6) Diabetes mellitus type 2, controlled, without complications Qualifiers: Diabetes mellitus correction insulin use: unspecified correction insulin use status Qualified Code(s): E11.9 - Type 2 diabetes mellitus without complications Is this a current diagnosis for this admission?: Yes (7) PAD (peripheral artery disease) Is this a current diagnosis for this admission?: Yes (8) Valvular heart disease Is this a current diagnosis for this admission?: Yes - Notes Notes: Patient noted to be short of breath. Evaluation suggests that she has element of CHF. Arterial blood gases show CO2 retention and could be related to obesity hypoventilation syndrome and underlying sleep apnea syndrome. Have started patient on Lasix 40 mg by mouth daily. Recommend monitoring intake output closely. As regards her other condition, patient's remains stable. Patient does have history of chronic atrial fibrillation but seems to be maintaining sinus rhythm. - Time Time with patient: 15-25 minutes - CODE STATUS was discussed, patient remains full code. Surrogate decision-maker unchanged. Multiple medical problems were addressed.More than 50% of the time spent coordinating care, discussing management plans with involved caregivers. Management plans discussed with involved personnels. Medical decision making was of moderate complexity.
[2016-11-10] MEDS ORDERED: FUROSEMIDE 40 MG TABLET PO ONE (14:00)
--- NOTE | 2016-11-10 14:15 | PDOC PROGRESS REPORT ---
Subjective Progress Note for:: 11/10/16 Subjective:: Reason for visit: Follow-up left hip fracture, CHF, acute kidney injury, possible aspiration pneumonia, hypoxic respiratory failure Hospital course: "81-year-old female with a history of paroxysmal atrial fibrillation, hypertension, diabetes mellitus, COPD , non-STEMI in August 2016; Was brought to the ED this morning after fall. Upon ER evaluation she was diagnosed of the left hip fracture and was subsequently admitted under hospitalist service to an IMCU unit Dr. Beasley orthopedic surgeon was consulted. Patient has been unstable , usually walks with a walker she fell on the left side. There was no history of syncope episode. She had no chest pain" dr beasley performed surgical repair. family caseworker informs me they are not interested in SNF placement and would like to return to home with previous home health nursing and ongoing outpt PT/ OT. I am unclear as to her previous functional status or what their goals of care are at present. Subjective: Nursing called to report that they could not wake the patient up this morning even with noxious stimuli. I arrived and found her lethargic but arousable, she would only stay awake for a few seconds to a minute before falling asleep again. Stat arterial blood gas does show some mild CO2 retention and nursing reports on previous admissions they are familiar with her and she frequently becomes encephalopathic due to CO2 retention and noncompliance with BiPAP. Furthermore Patient has an expressive aphasia and difficult to elicit an adequate review of systems. ROS: Unobtainable due to mental state. Physical Exam Vital Signs: Temp Pulse Resp BP Pulse Ox 98.2 F 71 17 141/51 H 98 11/10/16 11:31 11/10/16 11:31 11/10/16 12:21 11/10/16 11:31 11/10/16 12:21 Intake & Output 11/09/16 11/10/16 11/11/16 06:59 06:59 06:59 Intake Total 1325 1220 Output Total 400 Balance 925 1220 Weight 83.1 kg 84.4 kg EXAM GENERAL: Lethargic; well developed, well nourished; no obese; difficult to arouse for more than a few seconds to a minute at a time HEENT: normocephalic, atraumatic; no conjunctival injection, no scleral icterus ; oral mucosa moist; RESPIRATORY: no accessory muscle use, mild increased WOB, diminished air entry bilaterally; no wheezes, rales, rhonchi; bilateral inspiratory crackles CARDIO: no JVD; RRR; no systolic murmur; no tachycardia GI: soft; nondistended; normal bowel sounds; no rebound, rigidity, guarding; no tenderness or grimace to palpation VASCULAR: Very pale; 2+ radial, DP pulse; normal capillary refill EXTREMITIES: no calf tender; no palpable cords in calf; no clubbing, cyanosis , pedal edema; left hip wound clean dry and intact PSYCH: will follow directions but only briefly SKIN: warm; moist; no petechiae; no telengectasias; no jaundice; no rash Results Laboratory Results: 11/10/16 04:56 11/10/16 04:56 11/10/16 11/10/16 11/10/16 04:56 04:56 09:10 WBC 11.0 H RBC 2.87 L Hgb 8.4 L Hct 25.0 L MCV 87 MCH 29.1 MCHC 33.5 RDW 14.5 H Plt Count 134 L Seg Neutrophils % 85.7 H Lymphocytes % 6.7 L Monocytes % 5.9 Eosinophils % 1.5 Basophils % 0.2 Absolute Neutrophils 9.4 H Absolute Lymphocytes 0.7 Absolute Monocytes 0.6 Absolute Eosinophils 0.2 Absolute Basophils 0.0 Carbonic Acid 1.88 H HCO3/H2CO3 Ratio 17:1 ABG pH 7.33 L ABG pCO2 62.4 H ABG pO2 106.4 H ABG HCO3 32.2 H ABG O2 Saturation 97.4 ABG Base Excess 5.1 FiO2 4L Sodium 141.3 Potassium 4.7 Chloride 104 Carbon Dioxide 29 Anion Gap 8 BUN 37 H Creatinine 1.07 Est GFR ( Amer) 59 L Est GFR (Non-Af Amer) 49 L Glucose 107 Calcium 8.8 11/06/16 11/06/16 11/07/16 14:55 20:10 03:14 Troponin I < 0.012 < 0.012 < 0.012 NT-Pro-B Natriuret Pep 11/07/16 11/10/16 21:00 04:56 Troponin I NT-Pro-B Natriuret Pep 5790 H 67628 H Impressions: Fluoroscopy 11/07/16 00:00 IMPRESSION: Please see combined report for performance of procedure and radiologic supervision and interpretation. Hip X-Ray 11/07/16 00:00 IMPRESSION: IMAGE(S) OBTAINED DURING PROCEDURE. Chest X-Ray 11/08/16 12:41 IMPRESSION: Possible borderline vascular congestion. Recommend clinical correlation. Markings at the right base on the previous chest x-ray less prominent. Assessment & Plan - Diagnosis (1) Normocytic normochromic anemia Is this a current diagnosis for this admission?: YesPlan: She has suffered a steady drop in her hemoglobin since admission, reasons are unclear beyond long bone fracture and poor oral intake. She is not showing any signs of overt blood loss. Will repeat CBC later this afternoon and transfuse as clinically indicated. We'll send iron studies and stool studies. (2) Acute on chronic respiratory failure with hypoxia and hypercapnia Is this a current diagnosis for this admission?: YesPlan: She is not received any narcotics courting the nursing staff since yesterday. Place the patient on BiPAP until such time as she recovers and encouraged to use at night as she clearly has some evidence of CO2 retention. Previous ABG shows CO2 is high as 90 earlier this month. Continue supplemental oxygen and his lowest dose possible to maintain O2 sats of 88-92% and she carries diagnosis of COPD in her past. (3) Acute metabolic encephalopathy Is this a current diagnosis for this admission?: YesPlan: Secondary to the above. Should improve with BiPAP therapy. Hold centrally acting agents including narcotics at this time. Consider a dose of Narcan if she fails to improve. (4) Acute renal failure Qualifiers: Acute renal failure type: unspecified Qualified Code(s): N17.9 - Acute kidney failure, unspecified Is this a current diagnosis for this admission?: YesPlan: Serum creatinine improved. Continue to monitor. Avoid nephrotoxic medications (5) Congestive heart failure Qualifiers: Congestive heart failure type: diastolic Congestive heart failure chronicity: chronic Qualified Code(s): I50.32 - Chronic diastolic ( congestive) heart failure Is this a current diagnosis for this admission?: YesPlan: Continue gentle diuresis as noted above and monitor changes in volume status requiring further diuretics. (6) Fracture, intertrochanteric, left femur Qualifiers: Encounter type: initial encounter Fracture type: closed Qualified Code(s): S72.142A - Displaced intertrochanteric fracture of left femur , initial encounter for closed fracture Is this a current diagnosis for this admission?: YesPlan: Status post surgical repair. Management per orthopedics. 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
[2016-11-10] MEDS: GABAPENTIN 300 MG CAPSULE PO SCH ×2 (14:40→21:59)
[2016-11-10] MEDS: FAMOTIDINE INJ/PF 20 MG/2 ML SDV IV SCH ×2 (14:40→21:58)
[2016-11-10] MEDS: ISOSORBIDE MONONITRATE 60 MG TAB.ER.24H PO SCH (14:40)
[2016-11-10] MEDS: EZETIMIBE 10 MG TABLET PO SCH (14:40)
[2016-11-10] MEDS: PAROXETINE HCL 20 MG TABLET PO SCH (14:40)
[2016-11-10] MEDS: DIGOXIN 0.125 MG TABLET PO SCH (14:41)
[2016-11-10] MEDS: LANSOPRAZOLE 30 MG TAB.RAP.DR PO SCH (14:41)
[2016-11-10] MEDS: INSULIN GLARGINE,HUM.REC.ANLOG 300 UNIT/3 ML INSULN.PEN SUBCUT SCH ×2 (14:42→22:01)
[2016-11-10] MEDS: NORMAL SALINE 1000 ML 1,000 ML IV PRN (14:57)
[2016-11-10] MEDS: METOPROLOL TARTRATE 50 MG TABLET PO SCH ×2 (14:57→21:58)
[2016-11-10] MEDS ORDERED: ACETAMINOPHEN 325 MG TABLET PO PRN (15:03)
[2016-11-10] MEDS ORDERED: ACETAMINOPHEN 325 MG TABLET ONE (15:10)
[2016-11-10] MEDS: TRAZODONE HCL 50 MG TABLET PO SCH (21:59)
[2016-11-10] MEDS: RIVAROXABAN 10 MG TABLET PO SCH (21:59)
[2016-11-11] MEDS: OXYCODONE HCL IR 5 MG TABLET PO PRN ×2 (03:37→10:30)
[2016-11-11] MEDS: PIPERACILLIN SODIUM/TAZOBACTAM 2.25 GM in NORMAL SALINE 50 ML IV SCH ×2 (05:22→11:18)
[2016-11-11 05:25] LABS: ABSOLUTE EOSINOPHILS # (AUTO) 0.2 10^3/uL (0.0-0.6); ABSOLUTE LYMPHOCYTES (AUTO) 0.6 10^3/uL (0.5-4.7); ABSOLUTE MONOCYTES (AUTO) 0.5 10^3/uL (0.1-1.4); ABSOLUTE NEUT (AUTO) 7.3 10^3/uL (1.7-8.2); BASOPHILS % (AUTO) 0.2 % (0-2); EOSINOPHILS % (AUTO) 1.9 % (0-6); HEMATOCRIT 23.7 % (36.0-47.0); HGB HCT DIFFERENCE -0.3; LYMPHOCYTES % (AUTO) 6.9 % (13-45); MEAN CORPUSCULAR HEMOGLOBIN 28.5 pg (27.0-33.4); MEAN CORPUSCULAR HGB CONC 32.8 g/dL (32.0-36.0); MEAN CORPUSCULAR VOLUME 87 fl (80-97); MONOCYTES % (AUTO) 6.2 % (3-13); RED BLOOD COUNT 2.73 10^6/uL (3.72-5.28); RED CELL DISTRIBUTION WIDTH 14.2 % (11.5-14.0); SEGMENTED NEUTROPHILS % (AUTO) 84.8 % (42-78); WHITE BLOOD COUNT 8.6 10^3/uL (4.0-10.5)
[2016-11-11 05:40] LABS: HEMOGLOBIN 7.8 g/dL (12.0-15.5)
[2016-11-11 05:41] LABS: ANION GAP 7 (5-19); BLOOD UREA NITROGEN 30 mg/dL (7-20); CALCIUM 8.5 mg/dL (8.4-10.2); CARBON DIOXIDE 30 mmol/L (22-30); CHLORIDE 102 mmol/L (98-107); CREATININE RESULT 0.95 mg/dL (0.52-1.25); GLUCOSE 289 mg/dL (75-110); MAGNESIUM 2.1 mg/dL (1.6-2.3); POTASSIUM 4.4 mmol/L (3.6-5.0); SODIUM 139.4 mmol/L (137-145)
[2016-11-11] MEDS: IPRATROPIUM/ALBUTEROL 0.5-2.5 MG/3 ML AMPUL NEB SCH ×3 (08:08→20:49)
[2016-11-11] MEDS: ISOSORBIDE MONONITRATE 60 MG TAB.ER.24H PO SCH (10:27)
[2016-11-11] MEDS: LANSOPRAZOLE 30 MG TAB.RAP.DR PO SCH (10:28)
[2016-11-11] MEDS: GABAPENTIN 300 MG CAPSULE PO SCH ×2 (10:28→22:26)
[2016-11-11] MEDS: FUROSEMIDE 40 MG TABLET PO SCH (10:28)
[2016-11-11] MEDS: DIGOXIN 0.125 MG TABLET PO SCH (10:28)
[2016-11-11] MEDS: EZETIMIBE 10 MG TABLET PO SCH (10:29)
[2016-11-11] MEDS: FAMOTIDINE INJ/PF 20 MG/2 ML SDV IV SCH (10:30)
[2016-11-11] MEDS: PAROXETINE HCL 20 MG TABLET PO SCH (10:30)
[2016-11-11] MEDS: INSULIN GLARGINE,HUM.REC.ANLOG 300 UNIT/3 ML INSULN.PEN SUBCUT SCH ×2 (10:31→22:39)
[2016-11-11] MEDS: METOPROLOL TARTRATE 50 MG TABLET PO SCH ×2 (10:31→22:25)
--- NOTE | 2016-11-11 14:17 | PDOC PROGRESS REPORT ---
Subjective Progress Note for:: 11/11/16 Subjective:: Reason for visit: Follow-up left hip fracture, CHF, acute kidney injury, possible aspiration pneumonia, hypoxic respiratory failure Hospital course: "81-year-old female with a history of paroxysmal atrial fibrillation, hypertension, diabetes mellitus, COPD , non-STEMI in August 2016; Was brought to the ED this morning after fall. Upon ER evaluation she was diagnosed of the left hip fracture and was subsequently admitted under hospitalist service to an IMCU unit Dr. Beasley orthopedic surgeon was consulted. Patient has been unstable , usually walks with a walker she fell on the left side. There was no history of syncope episode. She had no chest pain" dr beasley performed surgical repair. trimming caser informs me they are not interested in SNF placement and would like to return to home with previous home health nursing and ongoing outpt PT/ OT. I am unclear as to her previous functional status or what their goals of care are at present. Nursing called to report that they could not wake the patient up yesterday morning even with noxious stimuli. I arrived and found her lethargic but arousable, she would only stay awake for a few seconds to a minute before falling asleep again. Stat arterial blood gas does show some mild CO2 retention and nursing reports on previous admissions they are familiar with her and she frequently becomes encephalopathic due to CO2 retention and noncompliance with BiPAP. Furthermore Patient has an expressive aphasia and difficult to elicit an adequate review of systems. I met with the patient's and 2 daughters yesterday afternoon for approximately 25 minutes and it seems they are interested in moving toward hospice situation in the home. Consult was placed we are still waiting disposition decisions but they made it very clear to me their desire for more conservative approach in her care. They wish our focus to be first and foremost her comfort. Subjective: more alert and interactive this morning, still wearing BiPAP from last night but barely tolerating. Her expressive aphasia makes it very difficult to communicate in detail, she does better with yes/no answers. She denies chest pain, palpitations and reports the pain in her leg is controlled. She makes it clear that she would like the BiPAP mask removed. ROS: Unobtainable due to mental state. Physical Exam Vital Signs: Temp Pulse Resp BP Pulse Ox 97.4 F 78 17 155/79 H 97 11/11/16 07:42 11/11/16 08:08 11/11/16 08:08 11/11/16 07:42 11/11/16 08:08 Intake & Output 11/10/16 11/11/16 11/12/16 06:59 06:59 06:59 Intake Total 1220 1147 0 Balance 1220 1147 0 Weight 84.4 kg 84.9 kg EXAM GENERAL: In no obvious distress; well developed, well nourished; no obese; much more alert and interactive HEENT: normocephalic, atraumatic; no conjunctival injection, no scleral icterus ; oral mucosa moist; BiPAP mask in place RESPIRATORY: no accessory muscle use, mild increased WOB, diminished air entry bilaterally; no wheezes, rales, rhonchi; bilateral inspiratory crackles CARDIO: no JVD; RRR; no systolic murmur; no tachycardia GI: soft; nondistended; normal bowel sounds; no rebound, rigidity, guarding; no tenderness or grimace to palpation VASCULAR: Very pale; 2+ radial, DP pulse; normal capillary refill EXTREMITIES: no calf tender; no palpable cords in calf; no clubbing, cyanosis , pedal edema; left hip wound clean dry and intact PSYCH: will follow directions but only briefly SKIN: warm; moist; no petechiae; no telengectasias; no jaundice; no rash Results Laboratory Results: 11/11/16 04:43 11/11/16 04:43 11/11/16 11/11/16 11/11/16 04:43 04:43 06:17 WBC 8.6 RBC 2.73 L Hgb 7.8 L Hct 23.7 L MCV 87 MCH 28.5 MCHC 32.8 RDW 14.2 H Plt Count 150 Seg Neutrophils % 84.8 H Lymphocytes % 6.9 L Monocytes % 6.2 Eosinophils % 1.9 Basophils % 0.2 Absolute Neutrophils 7.3 Absolute Lymphocytes 0.6 Absolute Monocytes 0.5 Absolute Eosinophils 0.2 Absolute Basophils 0.0 Retic Count (auto) 1.05 Absolute Retic 0.029 Sodium 139.4 Potassium 4.4 Chloride 102 Carbon Dioxide 30 Anion Gap 7 BUN 30 H Creatinine 0.95 Est GFR ( Amer) > 60 Est GFR (Non-Af Amer) 56 L Glucose 289 H Calcium 8.5 Magnesium 2.1 Iron 17.5 L TIBC 192 L % Saturation 9 Ferritin 154.00 Vitamin B12 767.0 Folate 11.10 Blood Type A POSITIVE Antibody Screen NEGATIVE 11/06/16 11/06/16 11/07/16 14:55 20:10 03:14 Troponin I < 0.012 < 0.012 < 0.012 NT-Pro-B Natriuret Pep 11/07/16 11/10/16 11/11/16 21:00 04:56 04:43 Troponin I NT-Pro-B Natriuret Pep 5790 H 18835 H 59557 H Impressions: Chest X-Ray 11/11/16 06:00 IMPRESSION: No interval change in the chest. No evidence of overt failure or consolidation. Assessment & Plan - Diagnosis (1) Normocytic normochromic anemia Is this a current diagnosis for this admission?: YesPlan: She has suffered a steady drop in her hemoglobin since admission, reasons are unclear beyond long bone fracture and poor oral intake. She is not showing any signs of overt blood loss. At this point were taking a more conservative approach so we will trend her H&H but not transfuse at this time (2) Acute on chronic respiratory failure with hypoxia and hypercapnia Is this a current diagnosis for this admission?: YesPlan: This is a recurrent problem for her, Previous ABG shows CO2 is high as 90 earlier this month. Continue supplemental oxygen and his lowest dose possible to maintain O2 sats of 88-92% and she carries diagnosis of COPD in her past. Her decompensation during this hospitalization is clear indicator that without nocturnal BiPAP she will quickly become hypercapnic, suffer a CO2 narcosis and likely so, to this process within days. (3) Acute metabolic encephalopathy Is this a current diagnosis for this admission?: YesPlan: Secondary to the above; improved. (4) Acute renal failure Qualifiers: Acute renal failure type: unspecified Qualified Code(s): N17.9 - Acute kidney failure, unspecified Is this a current diagnosis for this admission?: YesPlan: Serum creatinine improved. Avoid nephrotoxic medications (5) Congestive heart failure Qualifiers: Congestive heart failure type: diastolic Congestive heart failure chronicity: chronic Qualified Code(s): I50.32 - Chronic diastolic ( congestive) heart failure Is this a current diagnosis for this admission?: YesPlan: Continue gentle diuresis. (6) Fracture, intertrochanteric, left femur Qualifiers: Encounter type: initial encounter Fracture type: closed Qualified Code(s): S72.142A - Displaced intertrochanteric fracture of left femur , initial encounter for closed fracture Is this a current diagnosis for this admission?: Yes (7) HTN (hypertension) Qualifiers: Hypertension type: essential hypertension Qualified Code(s): I10 - Essential (primary) hypertension Is this a current diagnosis for this admission?: Yes (8) Atrial fibrillation Qualifiers: Atrial fibrillation type: paroxysmal Qualified Code(s): I48.0 - Paroxysmal atrial fibrillation Is this a current diagnosis for this admission?: Yes (9) Expressive aphasia Is this a current diagnosis for this admission?: Yes (10) Diabetes mellitus type 2, controlled, without complications Qualifiers: Diabetes mellitus usp insulin use: unspecified 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 The family is indicating their preference to take her home with hospice which I think is appropriate once the necessary pieces are in place.
[2016-11-11] MEDS ORDERED: MORPHINE SULFATE 10 MG/5 ML ORAL SOLUTION UDCUP PO PRN ×2 (14:54)
[2016-11-11] MEDS: INSULIN LISPRO 100 UNIT/ML 3 ML VIAL SUBCUT PRN ×2 (17:45→22:41)
--- NOTE | 2016-11-11 19:29 | PDOC PROGRESS REPORT ---
Subjective Progress Note for:: 11/11/16 Subjective:: Patient seems to be better today breathing easier. Chest x-ray shows improvement in CHF. Lung rojas were noted to be free of congestion except for possible scar in the right base. Other lab data was reviewed. Pt is denying any chest arm or neck discomfort. Patient denying any PND, orthopnea. Patient denied any sustained palpitations, dizziness, syncope, near syncope. Patient denying any fever chills. Patient denying any other significant discomfort. Patient is maintaining sinus rhythm. Review of systems: Rest review of systems negative. Medications: Medications have been reviewed. Physical Exam Vital Signs: Temp Pulse Resp BP Pulse Ox 98.6 F 79 19 133/44 H 100 11/11/16 15:21 11/11/16 15:21 11/11/16 15:21 11/11/16 15:21 11/11/16 15:21 Intake & Output 11/10/16 11/11/16 11/12/16 06:59 06:59 06:59 Intake Total 1220 1147 455 Balance 1220 1147 455 Weight 84.4 kg 84.9 kg Exam: GENERAL: well-nourished and in no acute distress. Patient is alert but difficult to assess orientation due to speech problems. HEAD: Atraumatic, normocephalic. EYES: Pupils equal round and reactive to light, extraocular movements intact, sclera anicteric, conjunctiva are normal. ENT: TMs normal, nares patent, oropharynx clear without exudates. Moist mucous membranes. No oral ulcerations or bleeding gums noted NECK: supple without lymphadenopathy or JVD. Trachea is central. No cervical or axillary lymphadenopathy noted. Carotids are 2+ LUNGS: Breath sounds lungs seem clear. No wheezing noted today. No dullness noted CHEST: Palpation of chest wall shows no significant chest wall tenderness. 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 ABDOMEN: Soft, no significant tenderness appreciated, normoactive bowel sounds. No guarding, no rebound. No rigidity noted . No masses appreciated. EXTREMITIES: Pedal pulses are 1-2+, no calf tenderness noted, Trace + pedal edema noted. No clubbing or cyanosis. NEUROLOGICAL: Patient is alert but no significant focal neurological deficit except for dysphasia. PSYCH: Difficult to assess due to speech problem. SKIN: No significant ecchymosis, rash, ulcerations or signs of pruritus noted. MUSCULOSKELETAL EXAM: No significant joint swelling noted. Results Laboratory Results: 11/11/16 04:43 11/11/16 04:43 11/11/16 11/11/16 11/11/16 04:43 04:43 06:17 WBC 8.6 RBC 2.73 L Hgb 7.8 L Hct 23.7 L MCV 87 MCH 28.5 MCHC 32.8 RDW 14.2 H Plt Count 150 Seg Neutrophils % 84.8 H Lymphocytes % 6.9 L Monocytes % 6.2 Eosinophils % 1.9 Basophils % 0.2 Absolute Neutrophils 7.3 Absolute Lymphocytes 0.6 Absolute Monocytes 0.5 Absolute Eosinophils 0.2 Absolute Basophils 0.0 Retic Count (auto) 1.05 Absolute Retic 0.029 Sodium 139.4 Potassium 4.4 Chloride 102 Carbon Dioxide 30 Anion Gap 7 BUN 30 H Creatinine 0.95 Est GFR ( Amer) > 60 Est GFR (Non-Af Amer) 56 L Glucose 289 H Calcium 8.5 Magnesium 2.1 Iron 17.5 L TIBC 192 L % Saturation 9 Ferritin 154.00 Vitamin B12 767.0 Folate 11.10 Blood Type A POSITIVE Antibody Screen NEGATIVE 11/06/16 11/06/16 11/07/16 14:55 20:10 03:14 Troponin I < 0.012 < 0.012 < 0.012 NT-Pro-B Natriuret Pep 11/07/16 11/10/16 11/11/16 21:00 04:56 04:43 Troponin I NT-Pro-B Natriuret Pep 5790 H 66460 H 40170 H Impressions: Fluoroscopy 11/07/16 00:00 IMPRESSION: Please see combined report for performance of procedure and radiologic supervision and interpretation. Hip X-Ray 11/07/16 00:00 IMPRESSION: IMAGE(S) OBTAINED DURING PROCEDURE. Chest X-Ray 11/11/16 06:00 IMPRESSION: No interval change in the chest. No evidence of overt failure or consolidation. Assessment & Plan - Diagnosis (1) Congestive heart failure Qualifiers: Congestive heart failure type: diastolic Congestive heart failure chronicity: chronic Qualified Code(s): I50.32 - Chronic diastolic ( congestive) heart failure Is this a current diagnosis for this admission?: Yes (2) HTN (hypertension) Qualifiers: Hypertension type: essential hypertension Qualified Code(s): I10 - Essential (primary) hypertension Is this a current diagnosis for this admission?: Yes (3) Atrial fibrillation Qualifiers: Atrial fibrillation type: paroxysmal Qualified Code(s): I48.0 - Paroxysmal atrial fibrillation Is this a current diagnosis for this admission?: Yes (4) CAD (coronary artery disease) Qualifiers: Coronary Disease-Associated Artery/Lesion type: [place] artery [place] vs. 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 Chest x-ray showed significant improvement from prior x-ray. Breathing also improved. BNP has gone up. Clinically patient is improved continue baseline diuretic therapy. Hypertension: Currently stable. Paroxysmal atrial fibrillation: Patient is maintaining sinus rhythm. Continue chronic anticoagulation. Diabetes: Currently stable. Continue with good management. Valvular heart disease: 2-D echo reviewed. Valve lesions are not severe. Recommend follow-up and medical management. - Time Time with patient: 15-25 minutes - CODE STATUS was discussed, patient remains full code. Surrogate decision-maker unchanged. Multiple medical problems were addressed.More than 50% of the time spent coordinating care, discussing management plans with involved caregivers. Management plans discussed with involved personnels. Medical decision making was of moderate complexity.
[2016-11-11] MEDS: TRAZODONE HCL 50 MG TABLET PO SCH (22:26)
[2016-11-12] MEDS: IPRATROPIUM/ALBUTEROL 0.5-2.5 MG/3 ML AMPUL NEB SCH (08:00)
[2016-11-12 10:41] VITALS: BP 143/38
[2016-11-12] MEDS: LANSOPRAZOLE 30 MG TAB.RAP.DR PO SCH (11:15)
[2016-11-12] MEDS: METOPROLOL TARTRATE 50 MG TABLET PO SCH (11:16)
[2016-11-12] MEDS: ISOSORBIDE MONONITRATE 60 MG TAB.ER.24H PO SCH (11:20)
[2016-11-12] MEDS: PAROXETINE HCL 20 MG TABLET PO SCH (11:21)
[2016-11-12] MEDS: GABAPENTIN 300 MG CAPSULE PO SCH (11:22)
[2016-11-12] MEDS: EZETIMIBE 10 MG TABLET PO SCH (11:22)
[2016-11-12] MEDS: DIGOXIN 0.125 MG TABLET PO SCH (11:22)
[2016-11-12] MEDS: INSULIN GLARGINE,HUM.REC.ANLOG 300 UNIT/3 ML INSULN.PEN SUBCUT SCH (11:23)
[2016-11-12] MEDS: FUROSEMIDE 40 MG TABLET PO SCH (11:23)
--- NOTE | 2016-11-12 14:38 | PDOC PROGRESS REPORT ---
Subjective Progress Note for:: 11/12/16 Subjective:: Guards ambulation. Prior chest x-ray showed improvement in CHF. Patient noted to have some drop in hemoglobin but seems tolerating it okay. Patient just has generalized weakness but denying any chest pain. Patient is maintaining sinus rhythm. Telemetry strips reviewed no recurrence of atrial fibrillation during this admission. Review of systems: Rest review of systems negative. Medications: Medications have been reviewed. Physical Exam Vital Signs: Temp Pulse Resp BP Pulse Ox 98.8 F 94 16 143/38 H 98 11/12/16 10:37 11/12/16 10:37 11/12/16 10:37 11/12/16 10:37 11/12/16 10:37 Intake & Output 11/11/16 11/12/16 11/13/16 06:59 06:59 06:59 Intake Total 1147 465 Balance 1147 465 Weight 84.9 kg 82.2 kg Exam: GENERAL: well-nourished and in no acute distress. Alert and oriented 2 HEAD: Atraumatic, normocephalic. EYES: Pupils equal round and reactive to light, extraocular movements intact, sclera anicteric, conjunctiva are normal. ENT: TMs normal, nares patent, oropharynx clear without exudates. Moist mucous membranes. No oral ulcerations or bleeding gums noted NECK: supple without lymphadenopathy. Trachea is central. No cervical or axillary lymphadenopathy noted. Carotids are 2+, JVD WNL LUNGS: Respiration seems nonlabored, no significant accessory muscle action noted. Breath sounds clear to auscultation bilaterally and equal noted. No wheezes rales or rhonchi noted. No significant dullness noted on percussion. CHEST: Palpation of the chest wall shows no significant chest wall tenderness. No other significant abnormalities noted. 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 ABDOMEN: Soft, no significant tenderness appreciated, normoactive bowel sounds. No guarding, no rebound. No rigidity noted . No masses appreciated. EXTREMITIES: Pedal pulses are 1-2+, no calf tenderness noted. No clubbing or cyanosis.1+ pedal edema noted NEUROLOGICAL: Focused neurological exam showed showed residual right-sided motor weakness and also mild dysphasia. Patient has been noted to have difficulty with ambulation even with physical therapy help. PSYCH: Normal mood, normal affect. Not evaluated. Patient does have some difficulty complicating. SKIN: No significant ecchymosis, rash, ulcerations or signs of pruritus noted. MUSCULOSKELETAL EXAM: No significant joint swelling noted. Results Laboratory Results: 11/11/16 04:43 11/11/16 04:43 11/11/16 04:43 Transferrin 128 L 11/06/16 11/06/16 11/07/16 14:55 20:10 03:14 Troponin I < 0.012 < 0.012 < 0.012 NT-Pro-B Natriuret Pep 11/07/16 11/10/16 11/11/16 21:00 04:56 04:43 Troponin I NT-Pro-B Natriuret Pep 5790 H 31786 H 86723 H Impressions: Fluoroscopy 11/07/16 00:00 IMPRESSION: Please see combined report for performance of procedure and radiologic supervision and interpretation. Hip X-Ray 11/07/16 00:00 IMPRESSION: IMAGE(S) OBTAINED DURING PROCEDURE. Chest X-Ray 11/11/16 06:00 IMPRESSION: No interval change in the chest. No evidence of overt failure or consolidation. Assessment & Plan - Diagnosis (1) Congestive heart failure Qualifiers: Congestive heart failure type: diastolic Congestive heart failure chronicity: chronic Qualified Code(s): I50.32 - Chronic diastolic ( congestive) heart failure Is this a current diagnosis for this admission?: Yes (2) HTN (hypertension) Qualifiers: Hypertension type: essential hypertension Qualified Code(s): I10 - Essential (primary) hypertension Is this a current diagnosis for this admission?: Yes (3) Atrial fibrillation Qualifiers: Atrial fibrillation type: paroxysmal Qualified Code(s): I48.0 - Paroxysmal atrial fibrillation Is this a current diagnosis for this admission?: Yes (4) CAD (coronary artery disease) Qualifiers: Coronary Disease-Associated Artery/Lesion type: [place] artery [place] vs. transplanted heart: [place] heart Associated angina: without angina Qualified Code(s): I25.10 - Atherosclerotic heart disease of [place] coronary artery without angina pectoris Is this a current diagnosis for this admission?: Yes (5) Diabetes mellitus type 2, controlled, without complications Qualifiers: Diabetes mellitus fdc insulin use: unspecified fdc insulin use status Qualified Code(s): E11.9 - Type 2 diabetes mellitus without complications Is this a current diagnosis for this admission?: Yes (6) PAD (peripheral artery disease) Is this a current diagnosis for this admission?: Yes (7) Valvular heart disease Is this a current diagnosis for this admission?: Yes - Notes Notes: CHF: Is compensated. Continue some baseline diuretic therapy. Hypertension: Currently stable. Paroxysmal atrial fibrillation: No recurrence noted. Coronary artery disease: Symptomatically stable. Diabetes: Reasonably controlled. Valvular heart disease: Currently stable. Discussed with nurse. Patient is going into hospice care. Will sign off. Please reconsult if needed. - Time Time with patient: 15-25 minutes - Patient is being discharged today through hospice care. Patient can follow-up with me if desired. Medications reviewed and adjusted accordingly: Yes
--- NOTE | 2016-11-12 15:49 | PDOC DISCHARGE SUMMARY ---
General - Admit/Disc Date/PCP Admission Date/Primary Care Provider: 11/06/16 14:06 ANU ASTUDILLO Discharge Date: 11/12/16 - Discharge Diagnosis (1) Normocytic normochromic anemia Is this a current diagnosis for this admission?: YesSummary: Likely related to long bone fracture, dictated by poor oral intake due to declining mental state. Expectant management only at this point per family's wishes. (2) Acute on chronic respiratory failure with hypoxia and hypercapnia Is this a current diagnosis for this admission?: YesSummary: BiPAP therapy at home for patient comfort, as tolerated. (3) Acute metabolic encephalopathy Is this a current diagnosis for this admission?: YesSummary: Waxing and waning course complicated by previous CVA with expressive aphasia and recurrent hypercapnia due to intolerance for BiPAP therapy and chronic CO2 retention. (4) Acute renal failure Is this a current diagnosis for this admission?: YesSummary: Resolved (5) Congestive heart failure Is this a current diagnosis for this admission?: YesSummary: Chronic recurrent problem, utilize low-dose diuretic therapy as tolerated for symptom control. (6) Fracture, intertrochanteric, left femur Is this a current diagnosis for this admission?: YesSummary: Status post surgical repair. No need for physical therapy at this time due to family's wishes for hospice and comfort care at home. (7) HTN (hypertension) Is this a current diagnosis for this admission?: Yes (8) Atrial fibrillation Is this a current diagnosis for this admission?: Yes (9) Expressive aphasia Is this a current diagnosis for this admission?: Yes (10) Diabetes mellitus type 2, controlled, without complications Is this a current diagnosis for this admission?: Yes - Additional Information Resuscitation Status: Full Code Discharge Diet: As Tolerated Discharge Activity: Activity As Tolerated, Balance Activity w/Rest Home Medications: Albuterol Sulfate [Proair HFA] 2 puff IH Q4 11/06/16 Cholecalciferol (Vitamin D3) [Vitamin D3 5000 unit Capsule] 5,000 unit PO VALDOVINOS Clopidogrel Bisulfate [Plavix 75 mg Tablet] 75 mg PO DAILY 11/06/16 Digoxin [Lanoxin 0.125 mg Tablet] 0.125 mg PO DAILY 11/06/16 Ezetimibe [Zetia 10 mg Tablet] 10 mg PO DAILY 11/06/16 Gabapentin [Neurontin 300 mg Capsule] 300 mg PO QAM 11/06/16 Gabapentin [Neurontin 300 mg Capsule] 600 mg PO QHS 11/06/16 Insulin Aspart [Novolog Insulin (Aspart) 100 unit/mL] See Protocol SQ BID Isosorbide Mononitrate [Imdur 60 mg Tablet.er] 90 mg PO DAILY 11/06/16 Pantoprazole Sodium [Protonix] 40 mg PO DAILY 11/06/16 Paroxetine HCl [Paxil] 40 mg PO DAILY 11/06/16 Trazodone HCl [Desyrel] 100 mg PO QHS 11/06/16 Acetaminophen [Tylenol 325 mg Tablet] 650 mg PO Q4HP PRN tablet 11/12/16 Insulin Glargine,Hum.rec.anlog [Lantus Insulin 100 Unit/mL] 30 unit SUBCUT Q12 insuln.pen 11/12/16 Metoprolol Tartrate [Lopressor 50 mg Tablet] 75 mg PO Q12 #60 tablet 11/12/16 Morphine Sulfate [Morphine 10 mg/5 ml Oral Soln Udcup] 5 mg PO Q2HP PRN #360 ml 11/12/16 History of Present Illness Patient complains of: Fall at home with hip pain History of Present Illness: REI ROBLES is a 81 year old female with a history of paroxysmal atrial fibrillation, hypertension, diabetes mellitus, COPD , non-STEMI in August 2016 ; Was brought to the ED this morning after fall. Upon ER evaluation she was diagnosed of the left hip fracture and was subsequently admitted under hospitalist service to an [facility] unit Hospital Course Hospital Course: Dr. Spivey orthopedic surgeon was consulted. Patient has been unstable , usually walks with a walker she fell on the left side. There was no history of syncope episode. She had no chest pain" dr spivey performed surgical repair. director case informs me they are not interested in SNF placement and would like to return to home with previous home health nursing and ongoing outpt PT/ OT. I am unclear as to her previous functional status or what their goals of care are at present. Nursing called to report that they could not wake the patient up yesterday morning even with noxious stimuli. I arrived and found her lethargic but arousable, she would only stay awake for a few seconds to a minute before falling asleep again. Stat arterial blood gas does show some mild CO2 retention and nursing reports on previous admissions they are familiar with her and she frequently becomes encephalopathic due to CO2 retention and noncompliance with BiPAP. Furthermore Patient has an expressive aphasia and difficult to elicit an adequate review of systems. I met with the patient's and 2 daughters yesterday afternoon for approximately 25 minutes and it seems they are interested in moving toward hospice situation in the home. Consult was placed we are still waiting disposition decisions but they made it very clear to me their desire for more conservative approach in her care. They wish our focus to be first and foremost her comfort. The [facility] and has elected to continue their care with hospice. Arrangements have been made at home with appropriate durable medical equipment in place, the family and hospice are ready for her discharge home. Physical Exam Vital Signs: Temp Pulse Resp BP Pulse Ox 98.8 F 94 16 143/38 H 98 11/12/16 10:37 11/12/16 10:37 11/12/16 10:37 11/12/16 10:37 11/12/16 10:37 Intake & Output 11/11/16 11/12/16 11/13/16 06:59 06:59 06:59 Intake Total 1147 465 Balance 1147 465 Weight 84.9 kg 82.2 kg General appearance: PRESENT: no acute distress, well-developed, well-nourished Mouth exam: PRESENT: moist Respiratory exam: PRESENT: unlabored. ABSENT: accessory muscle use Cardiovascular exam: PRESENT: irregular rhythm Pulses: PRESENT: normal radial pulses GI/Abdominal exam: PRESENT: soft Musculoskeletal exam: ABSENT: full ROM - Limited due to pain and hip withmovement Neurological exam: PRESENT: altered Results Laboratory Results: 11/11/16 04:43 11/11/16 04:43 11/11/16 04:43 Transferrin 128 L 11/06/16 11/06/16 11/07/16 14:55 20:10 03:14 Troponin I < 0.012 < 0.012 < 0.012 NT-Pro-B Natriuret Pep 11/07/16 11/10/16 11/11/16 21:00 04:56 04:43 Troponin I NT-Pro-B Natriuret Pep 5790 H 85805 H 92722 H Impressions: Fluoroscopy 11/07/16 00:00 IMPRESSION: Please see combined report for performance of procedure and radiologic supervision and interpretation. Hip X-Ray 11/07/16 00:00 IMPRESSION: IMAGE(S) OBTAINED DURING PROCEDURE. Chest X-Ray 11/11/16 06:00 IMPRESSION: No interval change in the chest. No evidence of overt failure or consolidation. Qualifiers PATEINT BEING DISCHARGED WITH ANY OF THE FOLLOWING DIAGNOSIS?: No VTE patient discharged on overlapping Therapy?: No Reason(s) for not prescribing Overlap Therapy:: Not indicated Plan Discharge Plan: Discharged home with home hospice at the family's request. Portable DO NOT RESUSCITATE placed on chart in accordance with family's expressed desires. Time Spent: Greater than 30 Minutes
--- NOTE | 2016-12-06 18:51 | PDOC H&P ---
History of Present Illness Admission Date/PCP: 11/06/16 14:06 ANU ASTUDILLO Patient complains of: fall , fractured hip History of Present Illness: REI ROBLES is a 81 year old female with a history of paroxysmal atrial fibrillation, hypertension, diabetes mellitus, COPD , non-STEMI in August 2016 ; Was brought to the ED this morning after fall. Upon ER evaluation she was diagnosed of the left hip fracture and was subsequently admitted under hospitalist service to an IMCU unit Past Medical History Cardiac Medical History: Reports: Atrial Fibrillation, Coronary Artery Disease, Hypertension Pulmonary Medical History: Reports: Chronic Obstructive Pulmonary Disease (COPD ) - On record Endocrine Medical History: Reports: Diabetes Mellitus Type 1, Diabetes Mellitus Type 2 GI Medical History: Reports: Gastroesophageal Reflux Disease Psychiatric Medical History: Reports: Depression Past Surgical History Past Surgical History: Reports: Mastectomy - Right nephrectomy, Vascular Surgery - Right fem-pop bypass, Left vein harvesting Social History Lives with: Spouse/Significant other Smoking Status: Unknown if Ever Smoked Frequency of Alcohol Use: None Hx Recreational Drug Use: No Drugs: None Hx Prescription Drug Abuse: No - Advance Directive Resuscitation Status: Full Code Family History Family History: CAD, DM Parental Family History Reviewed: Yes Children Family History Reviewed: Yes Sibling(s) Family History Reviewed.: Yes Medication/Allergy Home Medications: Albuterol Sulfate [Proair HFA] 2 puff IH Q4 11/06/16 Cholecalciferol (Vitamin D3) [Vitamin D3 5000 unit Capsule] 5,000 unit PO VALDOVINOS Clopidogrel Bisulfate [Plavix 75 mg Tablet] 75 mg PO DAILY 11/06/16 Digoxin [Lanoxin 0.125 mg Tablet] 0.125 mg PO DAILY 11/06/16 Ezetimibe [Zetia 10 mg Tablet] 10 mg PO DAILY 11/06/16 Gabapentin [Neurontin 300 mg Capsule] 300 mg PO QAM 11/06/16 Gabapentin [Neurontin 300 mg Capsule] 600 mg PO QHS 11/06/16 Insulin Aspart [Novolog Insulin (Aspart) 100 unit/mL] See Protocol SQ BID Isosorbide Mononitrate [Imdur 60 mg Tablet.er] 90 mg PO DAILY 11/06/16 Pantoprazole Sodium [Protonix] 40 mg PO DAILY 11/06/16 Paroxetine HCl [Paxil] 40 mg PO DAILY 11/06/16 Trazodone HCl [Desyrel] 100 mg PO QHS 11/06/16 Acetaminophen [Tylenol 325 mg Tablet] 650 mg PO Q4HP PRN tablet 11/12/16 Insulin Glargine,Hum.rec.anlog [Lantus Insulin 100 Unit/mL] 30 unit SUBCUT Q12 insuln.pen 11/12/16 Metoprolol Tartrate [Lopressor 50 mg Tablet] 75 mg PO Q12 #60 tablet 11/12/16 Morphine Sulfate [Morphine 10 mg/5 ml Oral Soln Udcup] 5 mg PO Q2HP PRN #360 ml 11/12/16 Allergies/Adverse Reactions: No Known Allergies Allergy (Verified 09/25/16 20:26) Review of Systems ROS unobtainable: Due to mental status Physical Exam Vital Signs: Temp Pulse Resp BP Pulse Ox 98.8 F 94 16 143/38 H 98 11/12/16 10:37 11/12/16 10:37 11/12/16 10:37 11/12/16 10:37 11/12/16 10:37 General appearance: PRESENT: mild distress, thin Head exam: PRESENT: atraumatic, normocephalic Eye exam: PRESENT: conjunctiva pink, EOMI, PERRLA. ABSENT: scleral icterus Ear exam: PRESENT: normal external ear exam Mouth exam: PRESENT: moist, tongue midline Neck exam: ABSENT: carotid bruit, JVD, lymphadenopathy, thyromegaly Respiratory exam: PRESENT: clear to auscultation [place]. ABSENT: rales, rhonchi, wheezes Cardiovascular exam: PRESENT: RRR. ABSENT: diastolic murmur, rubs, systolic murmur Pulses: PRESENT: normal dorsalis pedis pul Vascular exam: PRESENT: normal capillary refill GI/Abdominal exam: PRESENT: normal bowel sounds, soft. ABSENT: distended, guarding, mass, organolmegaly, rebound, tenderness Rectal exam: PRESENT: deferred Extremities exam: PRESENT: full ROM. ABSENT: calf tenderness, clubbing, pedal edema Musculoskeletal exam: PRESENT: other - Decreased range of motion left hip Neurological exam: PRESENT: CN II-XII grossly intact. ABSENT: motor sensory deficit Skin exam: PRESENT: dry, intact, warm. ABSENT: cyanosis, rash Results Laboratory Results: 11/11/16 04:43 11/11/16 04:43 11/06/16 11/06/1611/07/17 14:55 20:10 03:14 Troponin I < 0.012 < 0.012 < 0.012 NT-Pro-B Natriuret Pep 11/07/16 11/10/16 11/11/16 21:00 04:56 04:43 Troponin I NT-Pro-B Natriuret Pep 5790 H 27433 H 18407 H 11/11/16 04:43 11/11/16 04:43 Blood Type A POSITIVE 11/11/16 06:17 Antibody Screen NEGATIVE 11/11/16 06:17 MCV 87 fl (80-97) 11/11/16 04:43 MCH 28.5 pg (27.0-33.4) 11/11/16 04:43 MCHC 32.8 g/dL (32.0-36.0) 11/11/16 04:43 RDW 14.2 % (11.5-14.0) H 11/11/16 04:43 Seg Neutrophils % 84.8 % (42-78) H 11/11/16 04:43 Lymphocytes % 6.9 % (13-45) L 11/11/16 04:43 Monocytes % 6.2 % (3-13) 11/11/16 04:43 Eosinophils % 1.9 % (0-6) 11/11/16 04:43 Basophils % 0.2 % (0-2) 11/11/16 04:43 Absolute Neutrophils 7.3 10^3/uL (1.7-8.2) 11/11/16 04:43 Absolute Lymphocytes 0.6 10^3/uL (0.5-4.7) 11/11/16 04:43 Absolute Monocytes 0.5 10^3/uL (0.1-1.4) 11/11/16 04:43 Absolute Eosinophils 0.2 10^3/uL (0.0-0.6) 11/11/16 04:43 Absolute Basophils 0.0 10^3/uL (0.0-0.2) 11/11/16 04:43 Retic Count (auto) 1.05 % (0.66-2.85) 11/11/16 04:43 Absolute Retic 0.029 10^6/uL (0.028-0.122) 11/11/16 04:43 Carbonic Acid 1.88 mmol/L (1.05-1.35) H 11/10/16 09:10 HCO3/H2CO3 Ratio 17:1 11/10/16 09:10 ABG pH 7.33 (7.35-7.45) L 11/10/16 09:10 ABG pCO2 62.4 mmHg (35-45) H 11/10/16 09:10 ABG pO2 106.4 mmHg (80-100) H 11/10/16 09:10 ABG HCO3 32.2 mmol/L (20-26) H 11/10/16 09:10 ABG O2 Saturation 97.4 % (94-98) 11/10/16 09:10 ABG Base Excess 5.1 mmol/L 11/10/16 09:10 FiO2 4L 11/10/16 09:10 Chloride 102 mmol/L (98-107) 11/11/16 04:43 Carbon Dioxide 30 mmol/L (22-30) 11/11/16 04:43 Anion Gap 7 (5-19) 11/11/16 04:43 Est GFR ( Amer) > 60 (>60) 11/11/16 04:43 Est GFR (Non-Af Amer) 56 (>60) L 11/11/16 04:43 Glucose 289 mg/dL (75-110) H 11/11/16 04:43 Lactic Acid 0.9 mmol/L (0.7-2.1) 11/06/16 08:55 Calcium 8.5 mg/dL (8.4-10.2) 11/11/16 04:43 Magnesium 2.1 mg/dL (1.6-2.3) 11/11/16 04:43 Iron 17.5 ug/dL (37-170) L 11/11/16 04:43 TIBC 192 ug/dL (250-450) L 11/11/16 04:43 % Saturation 9 % 11/11/16 04:43 Transferrin 128 mg/dL (200-370) L 11/11/16 04:43 Ferritin 154.00 ng/mL (11.1-264.0) 11/11/16 04:43 Total Bilirubin 0.7 mg/dL (0.2-1.3) 11/07/16 03:14 AST 19 U/L (14-36) 11/07/16 03:14 ALT 38 U/L (9-52) 11/07/16 03:14 Alkaline Phosphatase 61 U/L (38-126) 11/07/16 03:14 Total Protein 5.0 g/dL (6.3-8.2) L 11/07/16 03:14 Albumin 2.6 g/dL (3.5-5.0) L 11/07/16 03:14 Triglycerides 97 mg/dL (<150) 11/07/16 03:14 Cholesterol 113.89 mg/dL (0-200) 11/07/16 03:14 LDL Cholesterol Direct 66 mg/dL (<100) 11/07/16 03:14 VLDL Cholesterol 19.0 mg/dL (10-31) 11/07/16 03:14 HDL Cholesterol 30 mg/dL (>40) L 11/07/16 03:14 Vitamin B12 767.0 pg/mL (239-931) 11/11/16 04:43 Folate 11.10 ng/mL (>2.76) 11/11/16 04:43 TSH 1.87 uIU/mL (0.47-4.68) 11/06/16 14:55 Urine Color YELLOW 11/06/16 14:40 Urine Appearance CLEAR 11/06/16 14:40 Urine pH 7.0 (5.0-9.0) 11/06/16 14:40 Ur Specific [place] 1.009 11/06/16 14:40 Urine Protein NEGATIVE mg/dL (NEGATIVE) 11/06/16 14:40 Urine Glucose (UA) NEGATIVE mg/dL (NEGATIVE) 11/06/16 14:40 Urine Ketones NEGATIVE mg/dL (NEGATIVE) 11/06/16 14:40 Urine Blood NEGATIVE (NEGATIVE) 11/06/16 14:40 Urine Nitrite NEGATIVE (NEGATIVE) 11/06/16 14:40 Ur Leukocyte Esterase NEGATIVE (NEGATIVE) 11/06/16 14:40 Urine WBC (Auto) 1 /HPF 11/06/16 14:40 Urine RBC (Auto) 1 /HPF 11/06/16 14:40 11/06/16 11/06/16 11/06/16 08:55 14:55 20:10 Troponin I < 0.012 < 0.012 < 0.012 NT-Pro-B Natriuret Pep 03/11/07/16 11/10/16 03:14 21:00 04:56 Troponin I < 0.012 NT-Pro-B Natriuret Pep 5790 H 82354 H 11/11/16 04:43 Troponin I NT-Pro-B Natriuret Pep 33891 H Impressions: Fluoroscopy 11/07/16 00:00 IMPRESSION: Please see combined report for performance of procedure and radiologic supervision and interpretation. Hip X-Ray 11/07/16 00:00 IMPRESSION: IMAGE(S) OBTAINED DURING PROCEDURE. Chest X-Ray 11/11/16 06:00 IMPRESSION: No interval change in the chest. No evidence of overt failure or consolidation. Assessment & Plan - Diagnosis (1) Congestive heart failure Qualifiers: Congestive heart failure type: diastolic Congestive heart failure chronicity: chronic Qualified Code(s): I50.32 - Chronic diastolic ( congestive) heart failure Is this a current diagnosis for this admission?: Yes (2) Fracture, intertrochanteric, left femur Qualifiers: Encounter type: initial encounter Fracture type: closed Qualified Code(s): S72.142A - Displaced intertrochanteric fracture of left femur , initial encounter for closed fracture Is this a current diagnosis for this admission?: Yes (3) HTN (hypertension) Qualifiers: Hypertension type: essential hypertension Qualified Code(s): I10 - Essential (primary) hypertension Is this a current diagnosis for this admission?: Yes (4) Valvular heart disease Is this a current diagnosis for this admission?: Yes (5) Atrial fibrillation Qualifiers: Atrial fibrillation type: paroxysmal Qualified Code(s): I48.0 - Paroxysmal atrial fibrillation Is this a current diagnosis for this admission?: Yes (6) Respiratory failure Qualifiers: Chronicity: acute Is this a current diagnosis for this admission?: Yes (7) Acute renal failure Qualifiers: Is this a current diagnosis for this admission?: Yes - Time Time Spent with patient: patient will be admitted to [facility] for further evaluation and care Orthopedic consult cardiology consult will be obtained Time Spent: 50 to 70 Minutes - Inpatient Certification Based on my medical assessment, after consideration of the patient's comorbidities, presenting symptoms, or acuity I expect that the services needed warrant INPATIENT care.: Yes I certify that my determination is in accordance with my understanding of Medicare's requirements for reasonable and necessary INPATIENT services [42 CFR 412.3e].: Yes Medical Necessity: Need For Continuous Telemetry Monitoring, Need for Surgery, Risk of Complication if Not Cared For in Hospital
== END 2016-11-12 12:12 | disposition hospice, home (50) | DRG 480 ==
LOC: ER 08:33 → UNDOADMIN 13:24 → EH 13:24 → 3W 16:38
PROVIDERS: ADMIT Emergency Medicine; ATTEND Emergency Medicine
PROC: 3E0F73Z Introduction of Anti-inflammatory into Respiratory Tract, Via Natural or Artificial Opening (ICD-10-PCS; 2016-11-07)
PROC: 0QS704Z Reposition Left Upper Femur with Internal Fixation Device, Open Approach (ICD-10-PCS; principal; 2016-11-07 10:00)
PROC: 5A09457 Assistance with Respiratory Ventilation, 24-96 Consecutive Hours, Continuous Positive Airway Pressure (ICD-10-PCS; 2016-11-09)
DX: S72.142A Displaced intertrochanteric fracture of left femur, initial encounter for closed fracture (principal); J96.21 Acute and chronic respiratory failure with hypoxia; J96.22 Acute and chronic respiratory failure with hypercapnia; G93.41 Metabolic encephalopathy; N17.9 Acute kidney failure, unspecified; I50.32 Chronic diastolic (congestive) heart failure; I69.351 Hemiplegia and hemiparesis following cerebral infarction affecting right dominant side; W01.0XXA Fall on same level from slipping, tripping and stumbling without subsequent striking against object, initial encounter; Z66 Do not resuscitate; D64.9 Anemia, unspecified; I48.0 Paroxysmal atrial fibrillation; E11.51 Type 2 diabetes mellitus with diabetic peripheral angiopathy without gangrene; I11.0 Hypertensive heart disease with heart failure; J44.9 Chronic obstructive pulmonary disease, unspecified; I25.10 Atherosclerotic heart disease of native coronary artery without angina pectoris; K21.9 Gastro-esophageal reflux disease without esophagitis; F32.9 Major depressive disorder, single episode, unspecified; I69.320 Aphasia following cerebral infarction; I08.0 Rheumatic disorders of both mitral and aortic valves; Z90.11 Acquired absence of right breast and nipple; I25.2 Old myocardial infarction; Z91.19 Patient's noncompliance with other medical treatment and regimen; Z79.4 Long term (current) use of insulin; Z79.02 Long term (current) use of antithrombotics/antiplatelets; Z79.899 Other long term (current) drug therapy; Z90.10 Acquired absence of unspecified breast and nipple; Z90.5 Acquired absence of kidney; Z83.3 Family history of diabetes mellitus; Z82.49 Family history of ischemic heart disease and other diseases of the circulatory system
CPT/HCPCS: 01230; 36415; 36600; 71010; 80048; 80053; 80061; 80162; 81001; 82607; 82728; 82746; 82803; 82962; 83036; 83540; 83550; 83605; 83735; 83880; 84443; 84466; 84484; 85025; 85045; 85610; 85730; 86850; 86900; 86901; 87040; 87086; 93005; 93010; 93306; 94640; 94660; 94799; 99285; G8978-GP; G8979-GP; J0131; J0690; J1100; J1741; J1815; J1940; J2250; J2370; J2405; J2543; J2704; J3010; J3490; J7030; J7050; J7120; J7620; S0028